=== PATIENT | female | born 1985 | race African-American/Black ===

== ENCOUNTER → 2016-08-26 14:05 | Outpatient (CLI) | payer MEDICARE ==
[2014-11-18 09:45] VITALS: BMI 33.3
[~2016-08-26 14:05] MED LIST: DIFLUCAN100 MG PO; DURAGESIC1 PATCH .4 TRANSDERM; HYDROCODONE-APA1 TAB PO; INVANZ 1 GM/NS 11 G1 IV; OXYCONTIN15 MG PO; PERCOCET 10/3251 TA1 PO; PROTONIX I40 MG/VIAL IV; PROTONIX40 MG PO; ROXICODONE30 MG PO; TENORMIN25 MG PO; VANCOMYCIN 1 GM/1 G1 IV
[2016-08-26 15:00] LABS: ALBUMIN 2.8 g/dL (3.4-5.0); PRE-ALBUMIN 14.4 mg/dL (18.0-35.7)
== END | disposition home or self-care (01) ==
LOC: D.LAB 14:05
PROVIDERS: Surgery
DX: C18.9 Malignant neoplasm of colon, unspecified (principal)

== ENCOUNTER 2016-09-13 14:51 | Inpatient (IN) | payer MEDICARE ==
[2016-09-13] VITALS (7 sets, daily range): BP systolic 125–143; BP diastolic 74–94; BMI 25.5
[~2016-09-13] VITALS: Ht 165.1 cm; Wt 69.4 kg
--- NOTE | 2016-09-13 16:41 | NUR ---
PT RECIEVED TO ROOM 2228 VIA WHEELCHAIR FROM ADMISSIONS VIA DIRECT ADMISSION FROM DR MONAHAN OFFICE NOTED TO HAVE LEFT UPPER CHEST PORT ACCESSED WITH KIM NEEDLE AND INTACT DRESSING PT REFUSED TO ALLOW KIM CHANGE BUT DID ALLOW DRESSING CHANGE PER STERILE TECHNIQUE. SPOKE WITH DR MONAHAN VIA CELL PHONE GIVEN ADMIT VITAL SIGNS AND QUESTIONED IF HE WANTED BLOOD CULTURES VIA PERIPHERAL STICK WELL PER LINE AND WOULD HE PREFER TPN TO BE STARTED TONIGHT STATED THAT IT WAS NOT NECESSARY FOR EITHER PT IS RECIEVING BOLUS FLUID AND BLOOD TRANSFUSIONS AND IT IS UNLIKLEY THAT PERIPHERAL CULTURES WILL AID IN DX. HOWEVER NEW ORDERS OBTAINED FOR LACTIC ACID AND SEPTIC PROTOCOL TO BE FOLLOWED PER FACILITY DRESSING TO MIDLINE LOWER ABDOMEN NOTED. DRY AND INTACT FAMILY AT BEDSIDE.
[2016-09-13 17:48] LABS: BASOPHILS 0.2 % (0-2); EOSINOPHILS 0.5 % (0-7); HEMATOCRIT 24.8 % (36.0-48.0); HEMOGLOBIN 8.1 g/dL (12-16); IMMATURE GRANULOCYTES 0.4 % (0-5); LYMPHOCYTES 10.7 % (15-50); MCH 28.3 pg (26.0-34.0); MCHC 32.7 g/dL (31.0-37.0); MCV 86.7 fL (80.0-100.0); MEAN PLATELET VOLUME 9.1 fL (7.4-10.4); MONOCYTES 9.8 % (2-11); NEUTROPHILS 78.4 % (40-80); PLATELET COUNT 572 10x3/uL (130-400); RBC 2.86 10x6/uL (4.00-5.40); RDW 18.9 % (11.5-14.5); WBC 18.8 10x3/uL (4.8-10.8)
[2016-09-13 18:00] LABS: ALBUMIN 2.2 g/dL (3.4-5.0); ANION GAP 18.7 mmol/L (8-16); BILIRUBIN - TOTAL 0.24 mg/dL (0.2-1.3); CALCIUM 8.4 mg/dL (8.5-10.1); CARBON DIOXIDE 16.4 mmol/L (21.0-32.0); CREATININE - SERUM 3.6 mg/dL (0.6-1.3); POTASSIUM - SERUM 4.1 mmol/L (3.5-5.1); PROTEIN - SERUM 7.4 g/dL (6.4-8.2)
[2016-09-13 22:21] LABS: ERYTHROCYTE SEDIMENTATION RATE 102 mm/hr (0-20)
--- NOTE | 2016-09-13 23:09 | NUR ---
FIRST UNIT OF BLOOD STARTED AT 2310. SLIGHTLY ELEVATED TEMP 99.7
[2016-09-13 23:36] LABS: PRO/CRE RATIO URINE 0.7 mg/g; PROTEIN - URINE 22.8 mg/dL (0.0-11.9)
[2016-09-13 23:37] LABS: APPEARANCE HAZY (CLEAR); BACTERIA FEW /hpf (NONE SEEN); BILIRUBIN NEGATIVE (NEGATIVE); COLOR YELLOW (YELLOW); EPITHELIAL CELLS 0-5 /hpf (0-5); GLUCOSE NEGATIVE (NEGATIVE); KETONE NEGATIVE (NEGATIVE); LEUKOCYTE ESTERASE 2+ (NEGATIVE); NITRITE NEGATIVE (NEGATIVE); PROTEIN 1+ mg/dL (NEGATIVE); RED CELLS - URINE 25-50 /hpf (0-5); SPECIFIC GRAVITY 1.005 (1.005-1.020); UROBILINOGEN NORMAL (NORMAL); WHITE CELLS - URINE 25-50 /hpf (0-5); YEAST >1+ WITH HYPHAE /hpf (NONE SEEN)
[2016-09-14] VITALS (15 sets, daily range): BP systolic 119–144; BP diastolic 67–90; Ht 165.1 cm; Wt 69.4 kg
--- NOTE | 2016-09-14 01:58 | NUR ---
SECOND UNIT OF BLOOD STARTED
[2016-09-14 06:00] LABS: BASOPHILS 0.2 % (0-2); EOSINOPHILS 0.7 % (0-7); IMMATURE GRANULOCYTES 0.3 % (0-5); LYMPHOCYTES 8.8 % (15-50); MCH 29.4 pg (26.0-34.0); MCHC 33.5 g/dL (31.0-37.0); MCV 87.5 fL (80.0-100.0); MEAN PLATELET VOLUME 9.5 fL (7.4-10.4); PLATELET COUNT 544 10x3/uL (130-400); RDW 17.6 % (11.5-14.5); WBC 18.1 10x3/uL (4.8-10.8)
[2016-09-14 06:05] LABS: HEMATOCRIT 31.6 % (36.0-48.0); HEMOGLOBIN 10.6 g/dL (12-16); RBC 3.61 10x6/uL (4.00-5.40)
[2016-09-14 06:13] LABS: ALBUMIN 2.1 g/dL (3.4-5.0); BILIRUBIN - TOTAL 0.68 mg/dL (0.2-1.3); CALCIUM 8.6 mg/dL (8.5-10.1); CARBON DIOXIDE 14.5 mmol/L (21.0-32.0); CREATININE - SERUM 3.8 mg/dL (0.6-1.3); POTASSIUM - SERUM 4.5 mmol/L (3.5-5.1); PROTEIN - SERUM 7.1 g/dL (6.4-8.2)
--- NOTE | 2016-09-14 07:43 | NUR ---
AM ROUNDING- RECEIVED REPORT FROM INJECTION MOLDING MACHINE OFFBEARER NURSE. PT IS CURRENTLY LAYING IN BED ON LEFT SIDE WITH EYES OPEN RESTING. GUEST MEMBER AT BEDSIDE. PT IS C/O 9/10 ABDOMINAL PAIN AT CURRENT TIME. ON ROOM AIR. NO MONITOR. IV SEEN TO LEFT INFUSAPORT WITH NS RUNNING AT 75CC. WILL SEE WHAT PT HAS FOR PAIN AND TX ORDERED. WILL CONTINUE TO MONITOR AND CONTINUE WITH PLAN OF CARE.
[2016-09-14 12:56] LABS: MAGNESIUM - SERUM 2.4 mg/dL (1.8-2.4); PHOSPHOROUS 7.6 mg/dL (2.5-4.9)
--- NOTE | 2016-09-14 16:10 | NUR ---
IV FLUIDS TURNED DOWN ORDERED FOR TPN.
--- NOTE | 2016-09-14 17:07 | NUR ---
PT IS CURRENTLY LAYING IN BED ON RIGHT SIDE WITH EYES OPEN RESTING C/O 9/10 PAIN FROM ABDOMINAL AREA. PT GIVEN BUPRENEX PRN ORDERED FOR PAIN. NO OTHER NEED AT CURRENT TIME. WILL CONTINUE TO MONITOR.
[2016-09-15] VITALS: BP 133/84
--- NOTE | 2016-09-15 00:49 | NUR ---
AWAKE. DENIES ANY NEEDS OR DISCOMFORTS. BED IS LOW WITH SR UP X2. CL IN REACH. FAMILY MEMBER PRESENT IN ROOM.
[2016-09-15 04:00] VITALS: BP 136/85
[2016-09-15 04:31] LABS: BASOPHILS 0.1 % (0-2); HEMATOCRIT 31.4 % (36.0-48.0); HEMOGLOBIN 10.5 g/dL (12-16); IMMATURE GRANULOCYTES 0.4 % (0-5); LYMPHOCYTES 9.4 % (15-50); MCH 28.8 pg (26.0-34.0); MCHC 33.4 g/dL (31.0-37.0); MEAN PLATELET VOLUME 9.2 fL (7.4-10.4); MONOCYTES 12.7 % (2-11); NEUTROPHILS 76.4 % (40-80); PLATELET COUNT 550 10x3/uL (130-400); RBC 3.65 10x6/uL (4.00-5.40); RDW 17.6 % (11.5-14.5); WBC 17.4 10x3/uL (4.8-10.8)
[2016-09-15 04:45] LABS: ANION GAP 16.2 mmol/L (8-16); BILIRUBIN - TOTAL 0.34 mg/dL (0.2-1.3); CALCIUM 8.4 mg/dL (8.5-10.1); CARBON DIOXIDE 18.8 mmol/L (21.0-32.0); CREATININE - SERUM 4.8 mg/dL (0.6-1.3); MAGNESIUM - SERUM 2.4 mg/dL (1.8-2.4); PHOSPHOROUS 5.8 mg/dL (2.5-4.9); PROTEIN - SERUM 7.2 g/dL (6.4-8.2)
--- NOTE | 2016-09-15 07:15 | NUR ---
REPORT RECEIVED FROM FIRE EQUIPMENT OPERATOR NURSE. CALL LIGHT IN REACH.
[2016-09-15 08:24] VITALS: BP 137/91
--- NOTE | 2016-09-15 08:55 | NUR ---
ASSESSMENT COMPLETED. DILAUDID 2 MG SIVP PER C/O PAIN OF 10. OTHER AM MEDS ADMINISTERED. DULCOLAX SUPPOSITORY. MOTHER IN ROOM. CALL LIGHT IN REACH. WILL CONTINUE WITH PLAN OF CARE.
--- NOTE | 2016-09-15 09:10 | NUR ---
ASSESSMENT COMPLETE. L PORT PATENT. TPN INFUSING AT 40 CC/HR AND NS INFUSING AT 30 CC/HR VIA PUMP. DRESSING C/D/I TO ABDOMEN. PALPATABLE HARD AREA NOTED TO MIDEPIGASTRIC AREA. COMPLAINING OF ABDOMINAL PAIN.
--- NOTE | 2016-09-15 11:20 | NUR ---
REQUESTING PAIN MEDS BUT TOO SOON FOR ADMINISTRATION.
--- NOTE | 2016-09-15 12:14 | NUR ---
PREOP MEDS ADMINISTERED. NURSE ANESTHESIST IN ROOM.
--- NOTE | 2016-09-15 12:30 | NUR ---
TO OR VIA BED.
--- NOTE | 2016-09-15 13:01 | NUR ---
1. LEFT URETERAL STENT SIZE 24 2. RIGHT URETERAL STENT SIZE 26
--- NOTE | 2016-09-15 13:38 | NUR ---
URINE SAMPLE COLLECTED AND SENT TO LAB.
[2016-09-15 13:46] LABS: HCG URINE NEGATIVE (NEGATIVE)
[2016-09-15 14:05] VITALS: BP 147/99
--- NOTE | 2016-09-15 14:07 | NUR ---
RETURNED TO ROOM FROM RECOVERY ROOM VIA BED. BP 147/99 HR 106. O2 SAT 100% ON RA.
--- NOTE | 2016-09-15 15:00 | NUR ---
DIFLUCAN IVPB AND SODIUM BICARBONATE PO PER ORDER. VOIDED 400 CC PINK TINGED URINE. CALL LIGHT IN REACH.
--- NOTE | 2016-09-15 15:10 | NUR ---
C/O PAIN OF 8 SO DILAUDID 2 MG SIVP. CALL LIGHT IN REACH.
[2016-09-15 16:00] VITALS: BP 140/74
--- NOTE | 2016-09-15 16:05 | NUR ---
PAIN IS NOW AT AN 8 PER PATIENT. MERREM IVPB. TEMP 99.5. WILL CONTINUE TO MONITOR.
--- NOTE | 2016-09-15 18:41 | NUR ---
DILAUDID 2 MG SIVP PER C/O PAIN OF 10. NO CHANGES IN INITIAL ASSESSMENT. CALL LIGHT IN REACH. MOTHER IN ROOM. WILL CONTINUE WITH PLAN OF CARE.
[2016-09-15 19:00] VITALS: BP 148/98
[2016-09-16] VITALS: BP 134/87
--- NOTE | 2016-09-16 03:56 | NUR ---
EYES CLOSED RESPIRATIONS WITH EASE AND UNLABORED.
[2016-09-16 04:00] VITALS: BP 140/91
[2016-09-16 05:33] LABS: BASOPHILS 0.2 % (0-2); EOSINOPHILS 1.2 % (0-7); HEMATOCRIT 33.1 % (36.0-48.0); HEMOGLOBIN 10.9 g/dL (12-16); IMMATURE GRANULOCYTES 0.6 % (0-5); LYMPHOCYTES 9.8 % (15-50); MCH 28.6 pg (26.0-34.0); MCHC 32.9 g/dL (31.0-37.0); MCV 86.9 fL (80.0-100.0); MEAN PLATELET VOLUME 9.6 fL (7.4-10.4); MONOCYTES 14.8 % (2-11); NEUTROPHILS 73.4 % (40-80); PLATELET COUNT 538 10x3/uL (130-400); RBC 3.81 10x6/uL (4.00-5.40); RDW 17.8 % (11.5-14.5); WBC 16.1 10x3/uL (4.8-10.8)
[2016-09-16 05:52] LABS: ALBUMIN 2.2 g/dL (3.4-5.0); ANION GAP 17.1 mmol/L (8-16); BILIRUBIN - TOTAL 0.32 mg/dL (0.2-1.3); CALCIUM 8.7 mg/dL (8.5-10.1); CARBON DIOXIDE 23.5 mmol/L (21.0-32.0); CREATININE - SERUM 4.5 mg/dL (0.6-1.3); MAGNESIUM - SERUM 2.3 mg/dL (1.8-2.4); PHOSPHOROUS 6.2 mg/dL (2.5-4.9); POTASSIUM - SERUM 3.6 mmol/L (3.5-5.1); PROTEIN - SERUM 7.7 g/dL (6.4-8.2)
--- NOTE | 2016-09-16 07:30 | NUR ---
RECIEVED PT DURING WALKING ROUNDS. PT RESTING IN BED WITH COMPLAINTS OF PAIN OF A 10 ON A SCALE OF 1-10. MEDICATION TO BE ADMINISTERED PER ORDER. ASSESSMENT DONE PER FLOWSHEET. BED IN LOW POSITION AND CALL LIGHT WITHIN REACH. WILL CONTINUE TO MONITOR.
--- NOTE | 2016-09-16 08:50 | NUR ---
NUTRITION MONITORING & EVAL CHART REVIEWED, PT VISIT. TOLERATING SMALL AMT REG DIET. ADJUSTED AND RENEWED TPN ORDERS. RD FOLLOWING
[2016-09-16 10:16] VITALS: BP 151/102
[2016-09-16 12:10] VITALS: BP 145/90
[2016-09-16 15:51] VITALS: BP 146/100
--- NOTE | 2016-09-16 16:40 | NUR ---
SPOKE WITH DR MONAHAN NURSE AT THIS TIME ABOUT PT BLOOD PRESSURE, NO NEW ORDERS RECIEVED AT THIS TIME. WILL CONTINUE TO MONITOR.
[2016-09-16 19:00] VITALS: BP 146/93
[2016-09-17] VITALS (7 sets, daily range): BP systolic 121–151; BP diastolic 76–111
--- NOTE | 2016-09-17 03:45 | NUR ---
LEFT LOWER ABDOMEN, LATERAL TO THE FISTULA, IS SWELLING. IT IS AN OVAL SHAPE THAT IS APPROXIMATELY 1.5 INCHES IN LENGTH AND 4 INCHES IN WIDTH (APPROXIMATELY) AND RAISED ABOUT 1MM IN HEIGHT. IN IS HOT TO THE TOUCH AND VERY TENDER. PATIENT GRIMMACES HER FACE WHEN I GENTLY TOUCH IT WITH MY FINGER TIP.
--- NOTE | 2016-09-17 03:45 | NUR ---
OUTLINED THE AREA OF THE ABDOMEN THAT IS SWELLING, WITH A BROWN MARKER.
[2016-09-17 06:22] LABS: BASOPHILS 0.2 % (0-2); EOSINOPHILS 0.9 % (0-7); HEMATOCRIT 33.4 % (36.0-48.0); HEMOGLOBIN 10.6 g/dL (12-16); IMMATURE GRANULOCYTES 0.3 % (0-5); LYMPHOCYTES 5.2 % (15-50); MCH 28.2 pg (26.0-34.0); MCHC 31.7 g/dL (31.0-37.0); MCV 88.8 fL (80.0-100.0); MEAN PLATELET VOLUME 10.1 fL (7.4-10.4); MONOCYTES 7.9 % (2-11); NEUTROPHILS 85.5 % (40-80); PLATELET COUNT 567 10x3/uL (130-400); RBC 3.76 10x6/uL (4.00-5.40); WBC 18.4 10x3/uL (4.8-10.8)
[2016-09-17 06:24] LABS: ALBUMIN 2.2 g/dL (3.4-5.0); ANION GAP 13.5 mmol/L (8-16); BILIRUBIN - TOTAL 0.3 mg/dL (0.2-1.3); CALCIUM 8.7 mg/dL (8.5-10.1); CARBON DIOXIDE 27.8 mmol/L (21.0-32.0); CREATININE - SERUM 3.4 mg/dL (0.6-1.3); MAGNESIUM - SERUM 2.6 mg/dL (1.8-2.4); POTASSIUM - SERUM 3.3 mmol/L (3.5-5.1); PROTEIN - SERUM 7.6 g/dL (6.4-8.2)
[2016-09-17 06:25] LABS: PHOSPHOROUS 4.5 mg/dL (2.5-4.9)
--- NOTE | 2016-09-17 07:30 | NUR ---
RECIEVED PT DURING WALKING ROUNDS. PT RESTING IN BED WITH COMPLAINTS OF ABDOMINAL PAIN OF AN 8 ON A SCALE OF 1-10. MEDICATION TO BE ADMINISTERED PER ORDER. ASSESSMENT DONE PER FLOWSHEET. BED IN LOW POSITION AND CALL LIGHT WITHIN REACH. WILL CONTINUE TO MONITOR.
--- NOTE | 2016-09-17 08:30 | NUR ---
SPOKE WITH DR. MONAHAN AT THIS TIME ABOUT PT SWOLLEN, RED AREA TO LEFT LOWER QUADRANT, RECIEVED ORDERS FOR A CT. ALSO RECIEVED ORDERS FOR ELECTOLYTE PROTOCOL. WILL REPLACE LOW POTASSIUM PER ORDER.
[2016-09-17 10:18] LABS: UPE RAND - ALBUMIN 36.6 % (()); UPE RAND - ALPHA 1 GLOBULIN 9.1 % (()); UPE RAND - ALPHA 2 GLOBULIN 14.6 % (()); UPE RAND - BETA GLOBULIN 12.4 % (()); UPE RAND - GAMMA GLOBULIN 27.4 % (())
--- NOTE | 2016-09-17 10:40 | NUR ---
SPOKE WITH DR. PHOENIX AT THIS TIME ABOUT PT, CT REVIEWED, DOCTOR STATED HE WOULD SPEAK WITH THE PATIENT AND FAMILY.
--- NOTE | 2016-09-17 10:57 | NUR ---
Patient Name: HERNAN GOLDEN Admission Status: Urgent Accout number: [id number] Admission Date: 09-13-2016 : 1985 Admission Diagnosis:ACUTE KIDNEY FAILURE, UNSPECIFIED Attending: ASHLI Current LOS: 4 Anticipated DC Date: 09-20-2016 Planned Disposition: Home with Home Health Primary Insurance: [facility] Discharge Planning Comments: CM MET WITH PATIENT REGARDING D/C NEEDS AND PLANS. PATIENT STATED HER SISTER (SEYMOUR) LIVES WITH HER AND SOMEONE IN HER FAMILY WILL DRIVE HER HOME AT DISCHARGE. PATIENT STATED SHE HAS A RAMP TO ENTER HER HOME AND NO STAIRS INSIDE. PATIENT IS INDEPENDENT WITH HER CARE AND HAS NO DME AT HOME. PATIENTS PCP IS DR. MONAHAN AND PHARMACY IS [facility] IN [place]. PATIENT IS CURRENT WITH [facility]. CM WILL CONTINUE TO FOLLOW PATIENT WITH D/C NEEDS AND PLANS. PCP DR. HERO AL IN [place]- [phone] SEYMOUR (SISTER) [phone] Emergency Medicine Specialist: Ly Syed Is the patient Alert and Oriented? Yes 0 * How many steps to enter\exit or inside your home? RAMP 0 * PCP DR. MONAHAN 0 * Pharmacy [facility] IN [place] 0 * Preadmission Environment Home with Family 0 * ADLs Independent 0 * Equipment None 0 * List name and contact numbers for known caregivers / representatives who currently or will assist patient after discharge: SEYMOUR (SISTER) [phone] 0 * Community resources currently utilized Home Health 0 * Please name any agencies selected above. [facility] 0 * Additional services required to return to the preadmission environment? Yes 0 * Can the patient safely return to the preadmission environment? Yes 0 * Has this patient been hospitalized within the prior 30 days at any hospital? No 0 Grand Total: 0
[2016-09-17 15:21] LABS: SPE - A/G RATIO 0.6 (0.7-1.7); SPE - ALBUMIN 2.4 g/dL (2.9-4.4); SPE - ALPHA-1 GLOBULIN 0.5 g/dL (0.0-0.4); SPE - ALPHA-2 GLOBULIN 1.1 g/dL (0.4-1.0); SPE - BETA GLOBULIN 1.1 g/dL (0.7-1.3); SPE - GAMMA GLOBULIN 1.4 g/dL (0.4-1.8); SPE - M-SPIKE Not Observed g/dL (Not Observed); SPE - TOTAL PROTEIN 6.6 g/dL (6.0-8.5)
--- NOTE | 2016-09-18 00:49 | NUR ---
ABDOMEN SWELLING INCREASING, LEFT UPPER LEG STARTING TO SWELL. APPLIED AN ICE PACK.
[2016-09-18 04:00] VITALS: BP 118/78
--- NOTE | 2016-09-18 07:30 | NUR ---
RECIEVED PT DURING WALKING ROUNDS. PT RESTING IN BED WITH COMPLAINTS OF PAIN OF A 8 ON A SCALE OF 1-10. PAIN MEDICATION TO BE GIVEN BY FAREBOX REPAIRER NURSE. ASSESSMENT DONE PER FLOWSHEET. BED IN LOW POSITION AND CALL LIGHT WITHIN REACH. WILL CONTINUE TO MONITOR.
[2016-09-18 08:17] LABS: BASOPHILS 0.2 % (0-2); EOSINOPHILS 1.8 % (0-7); HEMATOCRIT 32.1 % (36.0-48.0); HEMOGLOBIN 10.1 g/dL (12-16); IMMATURE GRANULOCYTES 0.2 % (0-5); LYMPHOCYTES 11.6 % (15-50); MCH 28.2 pg (26.0-34.0); MCHC 31.5 g/dL (31.0-37.0); MCV 89.7 fL (80.0-100.0); MEAN PLATELET VOLUME 9.8 fL (7.4-10.4); MONOCYTES 9.5 % (2-11); NEUTROPHILS 76.7 % (40-80); PLATELET COUNT 576 10x3/uL (130-400); RBC 3.58 10x6/uL (4.00-5.40); RDW 17.8 % (11.5-14.5); WBC 17.5 10x3/uL (4.8-10.8)
[2016-09-18 08:21] VITALS: BP 122/81
[2016-09-18 08:35] LABS: ALBUMIN 2.1 g/dL (3.4-5.0); ANION GAP 12.3 mmol/L (8-16); BILIRUBIN - TOTAL 0.38 mg/dL (0.2-1.3); CALCIUM 8.1 mg/dL (8.5-10.1); CARBON DIOXIDE 30.1 mmol/L (21.0-32.0); MAGNESIUM - SERUM 2.2 mg/dL (1.8-2.4); POTASSIUM - SERUM 3.4 mmol/L (3.5-5.1); PROTEIN - SERUM 7.5 g/dL (6.4-8.2); VANCOMYCIN - RANDOM 16.1 ug/mL (10.0-20.0)
[2016-09-18 08:36] LABS: CREATININE - SERUM 2.3 mg/dL (0.6-1.3)
--- NOTE | 2016-09-18 10:20 | NUR ---
POTASSIUM REPLACED PER PROTOCOL AT THIS TIME. WILL CONTINUE TO MONITOR.
--- NOTE | 2016-09-18 10:41 | NUR ---
NUTRITION MONITORING & EVAL CHART REVIEWED. PT CURRENTLY NPO FOR PROCEDURE. TPN @ 40 CC/HR. ADDED MAG AND PHOS TO AM LABS. RD FOLLOWING
[2016-09-18 12:37] VITALS: BP 132/85
[2016-09-18 15:54] VITALS: BP 136/89
--- NOTE | 2016-09-18 17:37 | NUR ---
LETI FOR INITIAL COUNT ONLY. OUT AT 1712
[2016-09-18 18:58] VITALS: BP 136/87
--- NOTE | 2016-09-18 19:00 | NUR ---
RECIEVED PT FROM SURGERY AT THIS TIME, POST-OP STABILITY VITALS STARTED AT THIS TIME. CVL DRESSING CHANGE PASSED TO FABRIC CUTTER NURSE.
--- NOTE | 2016-09-19 03:29 | NUR ---
C/O INCISIONAL PAIN RATES PAIN LEVEL #10 DILAUDID 3MG IVP GIVEN FOR PAIN CONTROL.
[2016-09-19 04:00] VITALS: BP 126/74
[2016-09-19 05:54] LABS: BASOPHILS 0.1 % (0-2); HEMATOCRIT 28.9 % (36.0-48.0); HEMOGLOBIN 8.9 g/dL (12-16); IMMATURE GRANULOCYTES 0.2 % (0-5); LYMPHOCYTES 11.6 % (15-50); MCH 28.3 pg (26.0-34.0); MCHC 30.8 g/dL (31.0-37.0); MONOCYTES 9.5 % (2-11); NEUTROPHILS 75.6 % (40-80); PLATELET COUNT 538 10x3/uL (130-400); RBC 3.14 10x6/uL (4.00-5.40); RDW 18.2 % (11.5-14.5); WBC 14.5 10x3/uL (4.8-10.8)
[2016-09-19 06:08] LABS: ANION GAP 10.7 mmol/L (8-16); BILIRUBIN - TOTAL 0.2 mg/dL (0.2-1.3); CALCIUM 8.1 mg/dL (8.5-10.1); CARBON DIOXIDE 31.2 mmol/L (21.0-32.0); CREATININE - SERUM 1.9 mg/dL (0.6-1.3); MAGNESIUM - SERUM 2.1 mg/dL (1.8-2.4); PHOSPHOROUS 3.4 mg/dL (2.5-4.9); POTASSIUM - SERUM 3.9 mmol/L (3.5-5.1); PROTEIN - SERUM 6.3 g/dL (6.4-8.2); VANCOMYCIN - RANDOM 25.2 ug/mL (10.0-20.0)
--- NOTE | 2016-09-19 07:25 | NUR ---
PT AOX4 RESP EVEN AND NONLABORED PT DENIES NEEDS AT THIS TIME IV TO LEFT CHEST WALL PATENT AND INTACT AT THIS TIME SRX2 BED AT LOWEST SETTING CALL LIGHT WITHIN REACH WILL CONTINUE TO MONITOR
[2016-09-19 08:15] VITALS: BP 138/90
[2016-09-19 11:41] VITALS: BP 118/67
[2016-09-19 16:00] VITALS: BP 114/72
[2016-09-19 16:25] VITALS: BP 114/61
[2016-09-19 22:49] VITALS: BP 133/85
[2016-09-20 07:16] LABS: BASOPHILS 0.2 % (0-2); EOSINOPHILS 3.1 % (0-7); HEMATOCRIT 30.4 % (36.0-48.0); HEMOGLOBIN 9.3 g/dL (12-16); IMMATURE GRANULOCYTES 0.4 % (0-5); LYMPHOCYTES 15.7 % (15-50); MCH 28.4 pg (26.0-34.0); MCHC 30.6 g/dL (31.0-37.0); MCV 92.7 fL (80.0-100.0); MEAN PLATELET VOLUME 10.1 fL (7.4-10.4); MONOCYTES 13.1 % (2-11); NEUTROPHILS 67.5 % (40-80); PLATELET COUNT 625 10x3/uL (130-400); RBC 3.28 10x6/uL (4.00-5.40); RDW 17.8 % (11.5-14.5); WBC 12.3 10x3/uL (4.8-10.8)
[2016-09-20 07:57] LABS: ALBUMIN 2.3 g/dL (3.4-5.0); BILIRUBIN - TOTAL 0.2 mg/dL (0.2-1.3); CALCIUM 8.6 mg/dL (8.5-10.1); CARBON DIOXIDE 33.7 mmol/L (21.0-32.0); CREATININE - SERUM 1.6 mg/dL (0.6-1.3); MAGNESIUM - SERUM 2.4 mg/dL (1.8-2.4); PHOSPHOROUS 2.6 mg/dL (2.5-4.9); PROTEIN - SERUM 7.4 g/dL (6.4-8.2)
[2016-09-20 08:03] LABS: ANION GAP 10.6 mmol/L (8-16); POTASSIUM - SERUM 3.3 mmol/L (3.5-5.1)
[2016-09-20 08:04] LABS: % SATURATION 32 % (15-55); IRON 37 ug/dl (35-150); TOTAL IRON BIND CAPACITY 115 ug/dl (260-445); UNSAT IRON BIND CAPACITY 78 ug/dl (150-375)
--- NOTE | 2016-09-20 08:30 | NUR ---
ASSESSMENT COMPLETE. L PORT PATENT. TPN INFUSING AT 40 CC/HR AND NS INFUSING AT 60 CC/HR VIA PUMP. COLOSTOMY BAG OVER LOWER ABDOMEN INCISION WITH SMALL AMOUNT OF DRAINAGE NOTED. DRESSING INTACT TO LOWER LEFT INCISION.
--- NOTE | 2016-09-20 09:49 | NUR ---
Nutrition Follow Up: Chart reviewed. Current TPN @ 40 ml/hr. +BM 09/17/16. Labs reviewed. Meds noted including NS @ 60 ml/hr. Rec continue current TPN regimen. Labs have been ordered x [address] following.
--- NOTE | 2016-09-20 10:58 | NUR ---
COMPLAINING OF ABDOMINAL PAIN. DILAUDID GIVEN SLOW IVP. VISITING WITH COMPANY.
[2016-09-20 12:41] VITALS: BP 120/82
--- NOTE | 2016-09-20 16:30 | NUR ---
DEREJE NEEDLE CHANGED BY JAMES WILLOUGHBY RN USING STERILE TECHNIQUE. DRESSING TO Q CHANGED. WOUND CLEANED WITH SALINE AND PACKED WITH 1/2 PACKING STRIP AND COVERED WITH 4X4 AND MEDIPORE TAPE.
[2016-09-20 17:35] VITALS: BP 131/96
--- NOTE | 2016-09-20 19:30 | NUR ---
PT RESTING WELL WITH NO DISTRESS NOTED VOICES ALL NEEDS TO STAFF WITH NO DIFFICULTY. CALL LIGHT IN REACH SIDE RAILS UP X 3 MOTHER AT BEDSIDE.
[2016-09-20 20:00] VITALS: BP 129/86
--- NOTE | 2016-09-20 21:00 | NUR ---
PATIENT IS AWAKE, ALERT AND ORIENTED X'S 4. RESPIRATIONS ARE EVEN AND UNLABORED ON ROOM AIR. NO SIGNS OF DISTRESS NOTED. PATIENT DENIES NEEDS. FAMILY AT THE BEDSIDE.
[2016-09-21] VITALS: BP 130/82
--- NOTE | 2016-09-21 03:45 | NUR ---
PT HAS RECIEVED DILAUDID EVERY 2 HRS THIS NIGHT PER REQUEST OF PT. RESTING WELL AT THIS TIME. HAS NO DISTRESS NOTED
[2016-09-21 04:00] VITALS: BP 123/82
[2016-09-21 06:10] LABS: BASOPHILS 0.1 % (0-2); EOSINOPHILS 2.4 % (0-7); HEMATOCRIT 31.4 % (36.0-48.0); HEMOGLOBIN 9.7 g/dL (12-16); IMMATURE GRANULOCYTES 0.4 % (0-5); LYMPHOCYTES 10.4 % (15-50); MCH 28.5 pg (26.0-34.0); MCHC 30.9 g/dL (31.0-37.0); MCV 92.4 fL (80.0-100.0); MEAN PLATELET VOLUME 9.8 fL (7.4-10.4); MONOCYTES 10.8 % (2-11); NEUTROPHILS 75.9 % (40-80); PLATELET COUNT 626 10x3/uL (130-400); RDW 17.7 % (11.5-14.5); WBC 13.4 10x3/uL (4.8-10.8)
[2016-09-21 06:44] LABS: ALBUMIN 2.8 g/dL (3.4-5.0); ANION GAP 5.5 mmol/L (8-16); BILIRUBIN - TOTAL 0.2 mg/dL (0.2-1.3); CALCIUM 9.1 mg/dL (8.5-10.1); CARBON DIOXIDE 39.6 mmol/L (21.0-32.0); CREATININE - SERUM 1.5 mg/dL (0.6-1.3); MAGNESIUM - SERUM 2.9 mg/dL (1.8-2.4); PHOSPHOROUS 2.8 mg/dL (2.5-4.9); POTASSIUM - SERUM 3.1 mmol/L (3.5-5.1)
--- NOTE | 2016-09-21 07:50 | NUR ---
PT AOX4 RESP EVEN AND NONLABORED PT DENIES NEEDS AT THIS TIME IV TO LEFT SUBCLAVIAN PATENT AND INTACT AT THIS TIME SRX2 BED AT LOWEST SETTING CALL LIGHT WITHIN REACH WILL CONTINUE TO MONITOR
[2016-09-21 08:42] VITALS: BP 132/90
[2016-09-21 12:19] VITALS: BP 132/87
[2016-09-21 16:28] VITALS: BP 121/77
--- NOTE | 2016-09-21 19:10 | NUR ---
ASSESSMENT COMPLETE PER FLOWSHEET. VOICES NO CO AT TIME. SR UP X 2. MOTHER AT THE BEDSIDE.
[2016-09-21 20:00] VITALS: BP 144/84
--- NOTE | 2016-09-21 21:00 | NUR ---
DRESSING CHANGE AND PACKED WITH IDOFOAM GUAZE. VOICES CO AT OF PAIN. 10/10.
[2016-09-22] VITALS: BP 117/76
--- NOTE | 2016-09-22 | NUR ---
SLEEPING NO DISTRESS NOTED. SR UP X 2. CALL LIGHT WITHIN REACH.
--- NOTE | 2016-09-22 03:00 | NUR ---
UP VOMITING IN BATHROOM. 1000 CC EMESIS.
[2016-09-22 04:00] VITALS: BP 119/81
[2016-09-22 04:40] LABS: BASOPHILS 0.2 % (0-2); EOSINOPHILS 1.5 % (0-7); HEMATOCRIT 32.2 % (36.0-48.0); HEMOGLOBIN 9.9 g/dL (12-16); IMMATURE GRANULOCYTES 0.5 % (0-5); LYMPHOCYTES 11.8 % (15-50); MCH 28.5 pg (26.0-34.0); MCHC 30.7 g/dL (31.0-37.0); MCV 92.8 fL (80.0-100.0); MEAN PLATELET VOLUME 10.1 fL (7.4-10.4); PLATELET COUNT 630 10x3/uL (130-400); RBC 3.47 10x6/uL (4.00-5.40); RDW 17.6 % (11.5-14.5); WBC 16.5 10x3/uL (4.8-10.8)
[2016-09-22 04:55] LABS: ALBUMIN 3.1 g/dL (3.4-5.0); ANION GAP 7.8 mmol/L (8-16); BILIRUBIN - TOTAL 0.27 mg/dL (0.2-1.3); CALCIUM 8.8 mg/dL (8.5-10.1); CARBON DIOXIDE 38.4 mmol/L (21.0-32.0); CREATININE - SERUM 1.6 mg/dL (0.6-1.3); MAGNESIUM - SERUM 3.4 mg/dL (1.8-2.4); PHOSPHOROUS 2.1 mg/dL (2.5-4.9); POTASSIUM - SERUM 3.2 mmol/L (3.5-5.1); PROTEIN - SERUM 8.3 g/dL (6.4-8.2)
--- NOTE | 2016-09-22 05:00 | NUR ---
SLEEPING NO DISTRESS NOTED. SR UP X 2.
--- NOTE | 2016-09-22 07:57 | NUR ---
LYING IN BED,WITHOUT DISTRESS.FAMILY AT BEDSIDE.CALL LIGHT IN REACH
--- NOTE | 2016-09-22 08:48 | NUR ---
ASSESSMENT COMPLETED. AM MEDS ADMINISTERED. DILAUDID AND ZOFRAN IVP. ONLY REQUESTED 3 MG. PASSWORD AND EMERGENCY CONTACT INFO OBTAINED AND PLACED IN CHART. ALSO REVIEWED MED REC AND PHARMACY. MOTHER IN ROOM. CALL LIGHT IN REACH. WILL CONTINUE WITH PLAN OF CARE.
[2016-09-22] MEDS ORDERED: HYDROCODONE-APA1 TAB PO (09:05)
[2016-09-22] MEDS ORDERED: COLACE100 MG PO (09:06)
[2016-09-22 09:12] VITALS: BP 99/62
[2016-09-22] MEDS ORDERED: MULTI-DAY VITAM1 TAB PO (09:22)
[2016-09-22] MEDS ORDERED: DULCOLAX10 MG/SUPP (09:22)
--- NOTE | 2016-09-22 09:25 | NUR ---
DR. PHOENIX PACKED WOUNDS.
--- NOTE | 2016-09-22 11:50 | NUR ---
JOSE LUIS KING AND DIFLUCAN IVPB PER AARON REILLY.
[2016-09-22 12:31] VITALS: BP 103/68
--- NOTE | 2016-09-22 12:42 | NUR ---
DILAUDID 4 MG SIVP. MOTHER IN ROOM. CALL LIGHT IN REACH. IV TUBING CHANGED PER HOSPITAL POLICY.
--- NOTE | 2016-09-22 14:20 | NUR ---
RESTING WITH EYES CLOSED. RESP EVEN AND UNLABORED. CALL LIGHT IN REACH.
--- NOTE | 2016-09-22 15:17 | NUR ---
AARON PARR, ADMINISTERED DILAUID 3 MG SIVP PER PATIENT REQUEST D/T PAIN OF 8. CALL LIGHT IN REACH.
--- NOTE | 2016-09-22 16:20 | NUR ---
BLOOD DRAWN FROM IP FOR POTASSIUM LEVEL. IVPB MERREM AND IV ALBUMIN. IV TUBING CHANGED PER HOSPITAL POLICY. NO OTHER NEEDS VOICED. CALL LIGHT IN REACH.
[2016-09-22 16:33] VITALS: BP 112/68
--- NOTE | 2016-09-22 17:31 | NUR ---
KAVIN AND ROBYN MCCOYP. CALL LIGHT IN REACH.
--- NOTE | 2016-09-22 18:28 | NUR ---
NO CHANGES IN INITIAL ASSESSMENT. CALL LIGHT IN REACH. WILL CONTINUE WITH PLAN OF CARE.
--- NOTE | 2016-09-22 19:20 | NUR ---
MOTHER AT BED SIDE TALK TO PT.
[2016-09-22 20:00] VITALS: BP 127/87
[2016-09-23] VITALS: BP 109/60
--- NOTE | 2016-09-23 01:02 | NUR ---
DRESSING CHANGE IN LEFT AND MID ABDOMEN AREA.
--- NOTE | 2016-09-23 02:00 | NUR ---
PT IN BED WITH NO DISTRESS. RESPIRATIONS EVEN AND UNLABORED. SIDE RAILS X 2. BED IS LOW. CALL LIGHT IN REACH.
[2016-09-23 04:00] VITALS: BP 117/76
[2016-09-23 05:18] LABS: BASOPHILS 0.2 % (0-2); EOSINOPHILS 1.7 % (0-7); HEMATOCRIT 31.1 % (36.0-48.0); HEMOGLOBIN 9.4 g/dL (12-16); IMMATURE GRANULOCYTES 0.6 % (0-5); LYMPHOCYTES 12.1 % (15-50); MCH 28.2 pg (26.0-34.0); MCHC 30.2 g/dL (31.0-37.0); MCV 93.4 fL (80.0-100.0); MONOCYTES 11.6 % (2-11); NEUTROPHILS 73.8 % (40-80); PLATELET COUNT 619 10x3/uL (130-400); RBC 3.33 10x6/uL (4.00-5.40); RDW 17.7 % (11.5-14.5); WBC 13.9 10x3/uL (4.8-10.8)
--- NOTE | 2016-09-23 05:30 | NUR ---
FSBS IS 113
[2016-09-23 05:31] LABS: BILIRUBIN - TOTAL 0.23 mg/dL (0.2-1.3); CALCIUM 8.2 mg/dL (8.5-10.1); CARBON DIOXIDE 33.7 mmol/L (21.0-32.0); CREATININE - SERUM 1.6 mg/dL (0.6-1.3); MAGNESIUM - SERUM 3.2 mg/dL (1.8-2.4); PHOSPHOROUS 1.6 mg/dL (2.5-4.9); PROTEIN - SERUM 7.9 g/dL (6.4-8.2)
[2016-09-23 05:34] LABS: ANION GAP 7.2 mmol/L (8-16); POTASSIUM - SERUM 3.9 mmol/L (3.5-5.1)
[2016-09-23 07:13] LABS: BASOPHILS 0.1 % (0-2); EOSINOPHILS 1.7 % (0-7); HEMATOCRIT 30.5 % (36.0-48.0); HEMOGLOBIN 9.3 g/dL (12-16); IMMATURE GRANULOCYTES 0.6 % (0-5); LYMPHOCYTES 13.6 % (15-50); MCH 28.4 pg (26.0-34.0); MCHC 30.5 g/dL (31.0-37.0); MONOCYTES 6.3 % (2-11); NEUTROPHILS 77.7 % (40-80); PLATELET COUNT 595 10x3/uL (130-400); RBC 3.28 10x6/uL (4.00-5.40); RDW 17.4 % (11.5-14.5); WBC 14.5 10x3/uL (4.8-10.8)
--- NOTE | 2016-09-23 07:13 | NUR ---
PRN DILAUDID 3MG ADMINISTERED FOR PAIN 10/10 PER ORDER AT THIS TIME. PT GIVEN SUPPLIES TO PACK ABDOMINAL FISTULA. MOTHER REMAINS AT BEDSIDE AND CALL LIGHT IN REACH, WILL CONTINUE WITH PLAN OF CARE.
--- NOTE | 2016-09-23 07:13 | NUR ---
PRN DILAUDID 4MG ADMINISTERED FOR PAIN AT THIS TIME. PAIN 10/10. PROVIDED PT WITH SUPPLIES TO PACK ABDOMINAL FISTULA. ASSESSMENT PERFORMED PER FLOWSHEET. MOTHER AT BEDSIDE. CALL LIGHT IN REACH. WILL CONTINUE WITH PLAN OF CARE.
[2016-09-23 07:44] LABS: ALBUMIN 3.3 g/dL (3.4-5.0); ANION GAP 8.3 mmol/L (8-16); BILIRUBIN - TOTAL 0.26 mg/dL (0.2-1.3); CALCIUM 8.7 mg/dL (8.5-10.1); CARBON DIOXIDE 34.9 mmol/L (21.0-32.0); CREATININE - SERUM 1.5 mg/dL (0.6-1.3); PHOSPHOROUS 1.8 mg/dL (2.5-4.9); POTASSIUM - SERUM 4.2 mmol/L (3.5-5.1); PROTEIN - SERUM 8.1 g/dL (6.4-8.2)
[2016-09-23 07:52] LABS: MAGNESIUM - SERUM 3.5 mg/dL (1.8-2.4)
[2016-09-23 08:32] VITALS: BP 113/76
--- NOTE | 2016-09-23 09:17 | NUR ---
NUTRITION MONITORING & EVAL CHART REVIEWED, TPN ADJUSTED, LABS RENEWED X 3 DAYS. PT TOLERATING REG DIET. RD FOLLOWING
--- NOTE | 2016-09-23 09:42 | NUR ---
SCHEDULED MEDICATIONS ADMINISTERED WELL PRN DILAUDID AND FLEXERIL. DENIES FURTHER NEEDS. MOTHER PROVIDED BED BATH. WILL CONTINUE WITH PLAN OF CARE.
--- NOTE | 2016-09-23 11:25 | NUR ---
Patient Name: HERNAN GOLDEN Encounter No: [id number] : 1985 Primary Insurance: [id number] Anticipated DC Date: 09-20-2016 Planned Disposition: Home with Home Health External Planned Provider: : DCP follow-up note: Patient and family in agreement with discharge plan. No changes to plan. Case management will follow and assist as needed. Ly Syed
--- NOTE | 2016-09-23 11:46 | NUR ---
PRN DILAUDID 3MG ADMINISTERED FOR PAIN 10/10. MOTHER REMAINS AT BEDSIDE. CALL LIGHT IN REACH, WILL CONTINUE WITH PLAN OF CARE.
[2016-09-23 12:44] VITALS: BP 109/75
--- NOTE | 2016-09-23 14:20 | NUR ---
PRN DILAUDID ADMINISTERED AT THIS TIME FOR PAIN PER ORDER. FISTULA DRESSING CHANGED PER PT. LEFT LOWER QUADRANT ABDOMEN DRESSING CHANGED AND PACKED USING STERILE TECNIQUE. DENIES FURTHER NEEDS. WILL CONTINUE WITH PLAN OF CARE.
[2016-09-23 16:15] VITALS: BP 104/62
[2016-09-23 19:00] VITALS: BP 117/72
[2016-09-24 04:00] VITALS: BP 99/62
[2016-09-24 07:41] LABS: ALBUMIN 3.5 g/dL (3.4-5.0); BILIRUBIN - TOTAL 0.28 mg/dL (0.2-1.3); CALCIUM 8.9 mg/dL (8.5-10.1); CARBON DIOXIDE 33.2 mmol/L (21.0-32.0); CREATININE - SERUM 1.6 mg/dL (0.6-1.3); POTASSIUM - SERUM 4.2 mmol/L (3.5-5.1); PROTEIN - SERUM 8.6 g/dL (6.4-8.2)
[2016-09-24 07:43] LABS: PHOSPHOROUS 3.8 mg/dL (2.5-4.9)
[2016-09-24 07:45] LABS: MAGNESIUM - SERUM 3.8 mg/dL (1.8-2.4)
[2016-09-24 08:43] VITALS: BP 99/65
--- NOTE | 2016-09-24 10:00 | NUR ---
BOTH DRESSINGS CHANGED AND PACKED ON ABDOMEN
--- NOTE | 2016-09-24 13:06 | NUR ---
NUTRITION MONITORING & EVAL CHART REVIEWED. PT VISIT. PT REPORTS SHE IS "SICK AT MY STOMACH". STATES SHE HAS NOT EATEN MUCH TODAY. ELEVATED MAG NOTED. NO MAG IN TPN, ? MOM. RD FOLLOWING
[2016-09-24 13:56] VITALS: BP 106/72
--- NOTE | 2016-09-24 14:49 | NUR ---
NUTRITION MONITORING & EVAL CHART REVIEWED. SPOKE WITH DR. PHOENIX. TPN ADJUSTED AND INCREASED TO 60 CC/HR. ADDED 20% INTRALIPIDS//250 CC [address] FOLLOWING
[2016-09-24 19:00] VITALS: BP 127/81
--- NOTE | 2016-09-24 20:00 | NUR ---
PATIENT AMBULATING IN THE [place]ILL WITH HER MOM. NO SIGNS OF DISTRESS NOTED. PATIENT PLEASENT, DENIES NEEDS. RESPIRATIONS ARE EVEN AND UNLABORED ON ROOM AIR.
--- NOTE | 2016-09-24 20:15 | NUR ---
PATIENT DOING DRESSING CHANGE.
--- NOTE | 2016-09-24 20:32 | NUR ---
PATIENT AMBULATED 3 FULL LAPS
[2016-09-25] VITALS: BP 117/76
[2016-09-25 04:00] VITALS: BP 109/71
[2016-09-25 05:43] LABS: HEMATOCRIT 30.5 % (36.0-48.0); HEMOGLOBIN 9.5 g/dL (12-16); MCH 28.3 pg (26.0-34.0); MCHC 31.1 g/dL (31.0-37.0); PLATELET COUNT 611 10x3/uL (130-400); RBC 3.36 10x6/uL (4.00-5.40); RDW 17.3 % (11.5-14.5); WBC 14.7 10x3/uL (4.8-10.8)
[2016-09-25 05:44] LABS: MCV 90.8 fL (80.0-100.0)
[2016-09-25 05:58] LABS: ALBUMIN 3.6 g/dL (3.4-5.0); ANION GAP 10.8 mmol/L (8-16); BILIRUBIN - TOTAL 0.28 mg/dL (0.2-1.3); CALCIUM 8.9 mg/dL (8.5-10.1); CARBON DIOXIDE 35.6 mmol/L (21.0-32.0); CREATININE - SERUM 1.6 mg/dL (0.6-1.3); PHOSPHOROUS 4.1 mg/dL (2.5-4.9); POTASSIUM - SERUM 4.4 mmol/L (3.5-5.1); PROTEIN - SERUM 8.6 g/dL (6.4-8.2)
[2016-09-25 06:25] LABS: EOSINOPHILS 2 % (0-7); LYMPHOCYTES 6 % (15-50); MONOCYTES 3 % (2-11); NEUTROPHILS 89 % (40-80); PLATELET ESTIMATE INCREASED
--- NOTE | 2016-09-25 07:30 | NUR ---
RECIEVED PT DURING WALKING ROUNDS. PT RESTING IN BED WITH COMPLAINTS OF PAIN OF A 7 ON A SCALE OF 1-10. MEDICATION TO BE GIVEN PER ORDER. ASSESSMENT DONE PER FLOWSHEET. BED IN LOW POSITION AND CALL LIGHT WITHIN REACH. WILL CONTINUE TO MONITOR.
[2016-09-25 08:42] VITALS: BP 105/68
--- NOTE | 2016-09-25 10:01 | NUR ---
NUTRITION MONITORING & EVAL CHART REVIEWED. ADJUSTED AND RENEWED TPN. WILL CONTINUE TO MONITOR PT PROGRESS, LABS. RD FOLLOWING
--- NOTE | 2016-09-25 11:25 | NUR ---
CENTRAL LINE DRESSING CHANGED PER PROTOCOL USING STERILE TECHNIQUE AT THIS TIME. BED IN LOW POSITION AND CALL LIGHT WIIN REACH. WILL CONTINUE TO MONITOR.
[2016-09-25 11:59] VITALS: BP 123/78
[2016-09-25 15:10] VITALS: BP 100/73
--- NOTE | 2016-09-25 19:15 | NUR ---
BEDSIDE REPORT RECEIVED AND CARE OF PT ASSUMED. PT LYING IN SEMI GILLETTE'S POSITION VISITING WITH FAMILY MEMBERS. LEFT PORT ACCESSED WITH TPN INFUSING AT 60 ML / HR AND 1/2 NS W/20 KCL INFUSING AT 50 ML / HR. WILL MONITOR CLOSELY FOR NEEDS.
[2016-09-25 20:00] VITALS: BP 109/70
--- NOTE | 2016-09-25 20:00 | NUR ---
DRESSING CHANGED BY PATIENT. SUPPLIES GIVEN. MINIMAL DRAINAGE ON OLD DRESSING PER PATIENT.
--- NOTE | 2016-09-25 20:30 | NUR ---
HS MEDICATIONS GIVEN TO INCLUDE FLEXERIL PER PT REQUEST. WILL CONTINUE TO MONITOR FOR NEEDS. FAMILY MEMBERS ARE AT BEDSIDE.
--- NOTE | 2016-09-25 21:33 | NUR ---
GAVE DILAUDID PER PT REQUEST. WILL MONITOR FOR EFFECTIVENESS. FAMILY MEMBER AT BEDSIDE.
--- NOTE | 2016-09-25 23:30 | NUR ---
DILAUDID GIVEN PER PT REQUEST FOR PAIN. WILL CONTINUE TO MONITOR FOR NEEDS.
[2016-09-26] VITALS: BP 117/67
[2016-09-26 04:00] VITALS: BP 120/61
[2016-09-26 07:17] LABS: ALBUMIN 3.9 g/dL (3.4-5.0); BILIRUBIN - TOTAL 0.32 mg/dL (0.2-1.3); CALCIUM 8.7 mg/dL (8.5-10.1); CARBON DIOXIDE 31.6 mmol/L (21.0-32.0); CREATININE - SERUM 1.6 mg/dL (0.6-1.3); PHOSPHOROUS 4.1 mg/dL (2.5-4.9); POTASSIUM - SERUM 4.6 mmol/L (3.5-5.1); PROTEIN - SERUM 8.1 g/dL (6.4-8.2)
[2016-09-26 07:22] LABS: MAGNESIUM - SERUM 3.5 mg/dL (1.8-2.4)
--- NOTE | 2016-09-26 07:45 | NUR ---
PT ASSESSMENT COMPLETE AWAKE AND ALERT ORINETD X 3 LUNGS CLEAR BILATERALLY NO ACUTE DISTRESS NOTED VOICES ALL NEEDS TO STAFF CALL LIGHT IN REACH MOTHER AT BEDSIDE DRESSING IN TACT TO ABDOMEN.
[2016-09-26 08:09] VITALS: BP 107/64
[2016-09-26] MEDS ORDERED: ENULOSE10 G/15 ML PO (09:06)
[2016-09-26] MEDS ORDERED: DURAGESIC1 PATCH .3 TRANSDERM (09:06)
[2016-09-26] MEDS ORDERED: OXYCODONE HCL5 MG PO (09:08)
[2016-09-26] MEDS ORDERED: [UNRECOGNIZED DRUG - CODE] IV (09:11)
--- NOTE | 2016-09-26 10:02 | NUR ---
CM REASSESSMENT NOTE: PATIENT IS DISCHARGING HOME TODAY /RESUMPTION OF CARE WITH [facility] ([place]). MATT WITH [facility] STATED THEY WILL CONTACT PATIENT FOR APPOINTMENT TIME. PATIENTS FAMILY IS DRIVING HER HOME. [employer] HAS BEEN SENT THE ORDER FOR TPN ([facility]). [employer]- [phone] [facility] IN [place]- [phone] FAX [phone]
[2016-09-26] MEDS ORDERED: CYCLOBENZAPRINE10 MG PO (12:04)
[2016-09-26] MEDS ORDERED: LOPRESSOR25 MG PO (12:04)
[2016-09-26] MEDS ORDERED: NORVASC10 MG PO (12:04)
--- NOTE | 2016-09-26 12:21 | NUR ---
PT GIVEN DISCHARGE INSTRUCTIONS AND EXPRESSED UNDERSTANDING GIVEN WRITTEN RX FOR OXYCODONE 10 MG #[address] NEVES WELL WRITTEN RX FOR LACTULOSE AND FENTNYL PATCH 100 MCG #5 FLUSHED PORT WITH 20 ML SALINE AND LOCKED ALL CLAMPS WITH SWAB CAPS IN PLACE. PT TO RECIEVE TPN AT HOME PER [facility].
--- NOTE | 2016-10-17 07:03 | DS ---
PATIENT:HERNAN SHIPLEY :85 MEDICAL RECORD: [id number] DISCHARGE SUMMARY ADMISSION DATE: 09/13/16 DISCHARGE DATE: 09/26/16 DATE OF ADMISSION: 09/17/2016 DISCHARGE DIAGNOSES: 1. 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 2. Acute renal failure, improved after exchanged of ureteral stents. 3. Enterocutaneous fistula. 4. Complicated urinary tract infection with yeast. 5. Partial small bowel obstruction. SUMMARY OF HOSPITAL COURSE: Ms. Shipley has a history of peritoneal carcinomatosis. She was admitted with leukocytosis, anemia and evidence of acute renal failure. CT scan showed obstructive hydronephrosis. She was seen by urology and her ureteral stents were exchanged. Culture did show yeast and she was treated with fluconazole for this. After exchanged of her ureteral stents and appropriated hydration, her renal function improved, back to baseline. She did have a chronic partial small bowel obstruction during her hospital stay and was treated with TPN. Her enterocutaneous fistula output continued to decline. She was followed by general surgery during her hospital stay, who recommended the continuation of TPN and consideration for further surgical exploration if her prealbumin returned to greater than 20. She did have small abscess developed in the left lower quadrant of her abdomen which was drained by surgery. She was treated with antibiotics including Invanz and vancomycin for this. By September 26, she was felt to be stable to return home to continue with TPN and follow up in the outpatient setting. TRANSINT:[id number] Voice Confirmation ID: [id number] DOCUMENT ID: [id number] MIGUEL MONAHAN MD at 0703 CC: [id number] DICTATION DATE: 10/11/16 0736 SHANK CARRIER: 10/12/16 0154 DIS IN 09/26/16 [place] [id number]
== END 2016-09-26 12:30 | disposition home health service (06) | DRG 853 ==
LOC: D.MS 14:51
PROVIDERS: Anesthesiology; Emergency Medicine; Internal Medicine Hematology & Oncology; Internal Medicine Nephrology; Surgery; Urology; ADMIT Internal Medicine Medical Oncology
PROC: 0T788DZ Dilation of Bilateral Ureters with Intraluminal Device, Via Natural or Artificial Opening Endoscopic (ICD-10-PCS; 2016-09-15)
PROC: 0J980ZZ Drainage of Abdomen Subcutaneous Tissue and Fascia, Open Approach (ICD-10-PCS; 2016-09-15)
PROC: 0TP98DZ Removal of Intraluminal Device from Ureter, Via Natural or Artificial Opening Endoscopic (ICD-10-PCS; principal; 2016-09-15 14:00)
DX: A41.9 Sepsis, unspecified organism (principal); K65.1 Peritoneal abscess; N13.1 Hydronephrosis with ureteral stricture, not elsewhere classified; C78.6 Secondary malignant neoplasm of retroperitoneum and peritoneum; K63.2 Fistula of intestine; C18.1 Malignant neoplasm of appendix; B37.49 Other urogenital candidiasis; E87.2 Acidosis; E87.1 Hypo-osmolality and hyponatremia; N17.9 Acute kidney failure, unspecified; D63.8 Anemia in other chronic diseases classified elsewhere; E86.0 Dehydration; E83.41 Hypermagnesemia; N18.3 Chronic kidney disease, stage 3 (moderate); M79.1 Myalgia; K64.9 Unspecified hemorrhoids

== ENCOUNTER 2016-10-09 11:16 | Inpatient (IN) | payer MEDICARE ==
[~2016-10-09] VITALS: Ht 165.1 cm; Wt 63.1 kg
--- NOTE | ~2016-10-09 | HEMODYNAMI ---
PATIENT:HERNAN GOLDEN MEDICAL RECORD: [id number] : 85 LOCATION:[facility] ADMISSION DATE: 10/10/16 Generatedon:11/06/201615:28 Patient name: HERNAN GOLDEN Patient #: [id number] SSN: DO B: 1985 Date of study: 11/06/2016 Page: Of Hemodynamic Procedure Report Patient Data Patient Demographics Procedure consent was obtained First Name: HERNAN Gender: Female Last Name: CHANTEL : 1985 Middle Initial: GUSTAVO Age: 31 year(s) Patient #: [id number] Race: Black Additional ID: [id number] Contact details [address]: [address] [place] [address] State: [place] City: [place] Zip code: [address] Admission Admission Data Admission Date: 10/10/2016 Admission Time: 10:26 Room #: D.2238 Procedure Procedure Types Cath Procedure Peripheral Cath Diagnostic Procedure Miscellaneous Procedure Description Procedure Date Procedure Date: 11/06/2016 Procedure Start Time: 15:06 Procedure Staff Name Function Sang Meneses MD Performing Physician Roxane Sebastian RT Scrub Toribio Espinoza MD Additional personnel Maikel Macias RT Monitor Procedure Data Cath Procedure Fluoroscopy Diagnostic fluoroscopy Total fluoroscopy Time: 1.8 time: 1.8 min min Diagnostic fluoroscopy Total fluoroscopy dose: 30 dose: 30 mGy mGy Contrast Material Contrast Material Type Amount (ml) Isovue 300 25 Diagnostic catheters Device Type Used For End Catheter Placement Merit Impress KA 2 5Fr 40CM catheter Hemodynamics Rest Heart Rate: 107 (bpm) Snapshots Pre Cath Intra NCS Post Cath Vital Signs Time Heart Resp SPO2 NIBP (mmHg) Rhythm Pain Sedation Rate (ipm) (%) Status Level (bpm) 14:49:19 104 16 100 124/85(100) NSR 0 (11) 10(A) , No pain 14:53:27 109 16 100 118/85(97) NSR 0 (11) 10(A) , No pain 14:57:33 104 14 100 121/83(99) NSR 0 (11) 10(A) , No pain 15:01:36 107 15 100 116/87(97) NSR 0 (11) 10(A) , No pain 15:05:38 122 16 100 121/88(102) NSR 0 (11) 10(A) , No pain 15:09:42 112 17 100 126/91(103) NSR 0 (11) 10(A) , No pain 15:13:48 108 18 100 118/84(97) NSR 0 (11) 10(A) , No pain 15:17:49 116 17 100 118/91(102) NSR 0 (11) 10(A) , No pain 15:21:53 111 14 100 119/83(96) NSR 0 (11) 10(A) , No pain 15:25:57 111 15 100 118/87(100) NSR 0 (11) 10(A) , No pain Procedure Log Time Note 14:34:51 Maikel Macias RT (R) (CV) sent for patient. Start room use. 14:34:59 Time tracking: Regular hours 14:35:04 Plan of Care:Hemodynamics will remain stable., Cardiac rhythm will remain stable., Comfort level will be maintained., Respiratory function will remain adequate., Patient/ family verbilizes understanding of procedure., Procedure tolerated without complication., Recovers from procedure without complications.. 14:35:10 Patient received from Med/Surg to IR Alert and oriented. Tansferred to table in Supine position. 14:35:11 Correct patient and procedure confirmed by team. 14:35:13 Signed procedure consent form obtained from patient. 14:35:13 ECG and BP/O2 sat monitors applied to patient. 14:35:15 Full Disclosure recording started 14:35:16 - 14:35:19 H&P Date Dictated: 11/06/2016 Within 30 days and on chart.. 14:35:20 Pre-procedure instructions explained to patient. 14:35:20 Pre-op teaching completed and patient verbalized understanding. 14:35:24 Family unavailable. 14:35:26 Patient NPO since Midnight. 14:35:29 - 14:35:47 SEE ANESTHESIA NOTE FOR PRE PROCEDURE TIVA 14:35:49 - 14:35:55 Use device set IR Diagnostic 14:35:57 Sterile Angiographic Pack opened to sterile field. 14:35:58 Bag Decanter opened to sterile field. 14:48:24 Vital chart was started 14:48:25 Baseline sample Acquired. 14:48:29 Rhythm: sinus tachycardia 15:00:23 MIKEL BURKS HERE FOR ANESTHESIA 15:05:47 Physician responded to page. 15:05:48 --------ALL STOP TIME OUT------ 15:05:49 Physician arrived 15:05:51 Final Timeout: patient, procedure, and site verified with staff and physician. All members of the team are in agreement. 15:05:56 Left abdomen site verified by team. 15:06:03 Left abdomen area was prepped with chlora-prep and draped in sterile fashion 15:06:08 Physical assessment completed. ASA score P 2 - A patient with mild systemic disease as per Sang Meneses MD. 15:06:12 Sedation plan: IV Moderate Sedation Versed, Fentanyl 15:06:24 Procedure started. 15:06:31 Local anesthetic to Abdominal area with Lidocaine 1% by Sang Meneses MD.INITIAL ACCESS ONLY 15:10:34 A Quaam KA 2 5Fr 40CM catheter was advanced over the wire and used for . 15:10:36 Terumo ANGLE 180L glide wire opened to sterile field. 15:10:51 Terumo TORQUE DEVICE PLASTIC .038 opened to sterile field. 15:11:34 Cook DOC .035 guide wire opened to sterile field. 15:12:17 Cook BENTSON 145cm guide wire opened to sterile field. 15:18:17 BAG, DRAINAGE EMPTY 600ML W/DELORES opened to sterile field. 15:18:17 STOPCOCK 3-WAY LARGE BORE opened to sterile field. 15:18:28 Abscession 10 FR drainage catheter opened to sterile field. 15:19:25 SUTURE ETHILON 2-0 BLK MONO FS opened to sterile field. 15:25:36 Procedure ended.(Physican Out) 15:25:57 Fluoroscopy time 01.80 minutes. 15:26:04 Fluoroscopy dose: 30 mGy 15:26:04 Flurop Dose total: 30 15:26:28 Contrast amount:Isovue 300 25ml. 15:26:29 Sharps counted by scrub and verified by R.N. 15:26:30 Insertion/operative site no bleeding no hematoma. 15:26:35 Post-op/insertion site Left Abdominal area dressed using a 4 x 4 and Tegaderm. 15:26:41 Post Abdominal area:stable 15:26:48 Post-procedure physical assessment completed. ASA score P 2 - A patient with mild systemic disease as per Sang Meneses MD. 15:27:01 Post procedure rhythm: unchanged. 15:27:02 Post procedure instruction explained to patient.Patient verbalizes understanding. 15:27:04 Procedure and supply charges have been captured, reviewed, submitted an d are correct. 15:27:25 Report given to Med/Surg. 15:27:28 Patient transfered to Med/Surg with Bed. 15:28:42 Vital chart was stopped Device Usage Item Name Manufacture Quantity Catalog Hospital Part Current Minima l Lot# / Number Charge Number Stock Stock Serial# Code Sterile Cardinal 1 [id number] 5 Angiographic Health Pack Bag Decanter Microtek 1 869003 72021 775360 5 [employer]yst Medical 1 [id number] 909216 991929 5 [id number] Impress KA 2 5Fr 40CM catheter Terumo ANGLE Terumo 1 [id number] 548356 935674 762096 5 180L glide wire Terumo [place] 1 TD01 587757 873302 891380 5 TORQUE Scientific DEVICE PLASTIC .038 Cook DOC [facility] 1 [id number] 164107 376101 5 [id number] .035 guide wire Cook BENTSON [facility] 1 [id number] 389088 430584 5 [id number] 145cm guide wire BAG, [facility] 1 [id number] 226015 100958 431413 5 DRAINAGE EMPTY 600ML W/DELORES STOPCOCK [facility] 1 [id number] 623156 9858 447651 5 [id number] 3-WAY LARGE BORE Abscession Angiodynamics 1 [id number] 725793 806133 452397 5 10 FR drainage catheter SUTURE Ethicon 1 664H 119707 246242 5 ETHILON 2-0 BLK MONO FS Signature Audit [place] Stage Time Signature Unsigned Intra-Procedure 11/06/2016 Maikel 3:28:40 PM [place] RT (R) (CV) Signatures Monitor : Maikel Signature : Lucilleield RT Date : Time : [facility] [address] [place] [address]
[~2016-10-09 11:16] MED LIST changes: +COLACE100 MG PO; +CYCLOBENZAPRINE10 MG PO; +DULCOLAX10 MG/SUPP; +DURAGESIC1 PATCH .3 TRANSDERM; +ENULOSE10 G/15 ML PO; +LOPRESSOR25 MG PO; +MULTI-DAY VITAM1 TAB PO; +NORVASC10 MG PO; +OXYCODONE HCL5 MG PO; +[UNRECOGNIZED DRUG - CODE] IV
[2016-10-09] MEDS ORDERED: PROTONIX FOR OR40 MG PT (11:40)
[2016-10-09] MEDS ORDERED: PHENERGAN25 M1 PO (11:40)
[2016-10-09 12:05] VITALS: BP 121/87
[2016-10-09 14:45] LABS: CALCIUM 9.4 mg/dL (8.5-10.1); CREATININE - SERUM 1.5 mg/dL (0.6-1.3)
[2016-10-09 14:50] LABS: HEMATOCRIT 31.6 % (36.0-48.0); HEMOGLOBIN 10.3 g/dL (12-16); MCH 28.9 pg (26.0-34.0); MCHC 32.6 g/dL (31.0-37.0); MCV 88.5 fL (80.0-100.0); MEAN PLATELET VOLUME 9.5 fL (7.4-10.4); PLATELET COUNT 750 10x3/uL (130-400); RBC 3.57 10x6/uL (4.00-5.40); RDW 16.8 % (11.5-14.5); WBC 23.2 10x3/uL (4.8-10.8)
[2016-10-09 15:15] LABS: LYMPHOCYTES 12 % (15-50); MONOCYTES 10 % (2-11); NEUTROPHILS 77 % (40-80)
[2016-10-09 15:16] LABS: PLATELET ESTIMATE INCREASED
[2016-10-09 15:23] LABS: PHOSPHOROUS 4.3 mg/dL (2.5-4.9)
[2016-10-09 16:34] VITALS: BP 135/84
[2016-10-09 18:38] VITALS: BP 121/87; BMI 23.3
[2016-10-09 20:00] VITALS: BP 123/88
[2016-10-10 04:00] VITALS: BP 106/80
[2016-10-10 06:13] LABS: ALBUMIN 3.1 g/dL (3.4-5.0); ANION GAP 13.1 mmol/L (8-16); BILIRUBIN - TOTAL 0.3 mg/dL (0.2-1.3); CALCIUM 9.5 mg/dL (8.5-10.1); CARBON DIOXIDE 28.2 mmol/L (21.0-32.0); CREATININE - SERUM 1.5 mg/dL (0.6-1.3); MAGNESIUM - SERUM 2.2 mg/dL (1.8-2.4); PHOSPHOROUS 3.9 mg/dL (2.5-4.9); POTASSIUM - SERUM 3.3 mmol/L (3.5-5.1)
[2016-10-10 06:15] LABS: BASOPHILS 0.2 % (0-2); HEMATOCRIT 31.2 % (36.0-48.0); IMMATURE GRANULOCYTES 0.6 % (0-5); LYMPHOCYTES 10.6 % (15-50); MCH 28.5 pg (26.0-34.0); MCHC 32.1 g/dL (31.0-37.0); MCV 88.9 fL (80.0-100.0); MEAN PLATELET VOLUME 9.4 fL (7.4-10.4); MONOCYTES 12.8 % (2-11); NEUTROPHILS 74.8 % (40-80); PLATELET COUNT 720 10x3/uL (130-400); RBC 3.51 10x6/uL (4.00-5.40); RDW 16.8 % (11.5-14.5); WBC 20.1 10x3/uL (4.8-10.8)
[2016-10-10 09:02] VITALS: BP 105/73
[2016-10-10 12:48] VITALS: Ht 165.1 cm; Wt 63.1 kg
[2016-10-10 13:26] VITALS: BP 117/83
[2016-10-10 16:28] VITALS: BP 105/70
[2016-10-10 20:00] VITALS: BP 116/78
[2016-10-11] VITALS: BP 115/76
[2016-10-11 00:14] LABS: APPEARANCE HAZY (CLEAR); BILIRUBIN NEGATIVE (NEGATIVE); COLOR YELLOW (YELLOW); GLUCOSE NEGATIVE (NEGATIVE); KETONE NEGATIVE (NEGATIVE); LEUKOCYTE ESTERASE 2+ (NEGATIVE); NITRITE NEGATIVE (NEGATIVE); PROTEIN 1+ mg/dL (NEGATIVE); SPECIFIC GRAVITY 1.015 (1.005-1.020); UROBILINOGEN NORMAL (NORMAL)
[2016-10-11 00:15] LABS: BACTERIA MODERATE /hpf (NONE SEEN); EPITHELIAL CELLS NSEEN /hpf (0-5); WHITE CELLS - URINE >50 /hpf (0-5)
[2016-10-11 04:00] VITALS: BP 110/80
[2016-10-11 06:09] LABS: ANION GAP 14.4 mmol/L (8-16); CALCIUM 9.3 mg/dL (8.5-10.1); CARBON DIOXIDE 26.6 mmol/L (21.0-32.0); CREATININE - SERUM 1.2 mg/dL (0.6-1.3); PHOSPHOROUS 3.6 mg/dL (2.5-4.9)
[2016-10-11 07:53] VITALS: BP 113/79
[2016-10-11 12:16] VITALS: BP 99/65
[2016-10-11 15:53] VITALS: BP 103/67
[2016-10-11 20:00] VITALS: BP 106/75
[2016-10-11 20:48] LABS: APPEARANCE HAZY (CLEAR); BILIRUBIN NEGATIVE (NEGATIVE); COLOR YELLOW (YELLOW); GLUCOSE NEGATIVE (NEGATIVE); KETONE NEGATIVE (NEGATIVE); LEUKOCYTE ESTERASE 2+ (NEGATIVE); NITRITE NEGATIVE (NEGATIVE); PROTEIN TRACE mg/dL (NEGATIVE); UROBILINOGEN NORMAL (NORMAL)
[2016-10-11 20:51] LABS: BACTERIA FEW /hpf (NONE SEEN)
[2016-10-11 20:53] LABS: RED CELLS - URINE 25-50 /hpf (0-5)
[2016-10-12] VITALS (14 sets, daily range): BP systolic 82–103; BP diastolic 45–69
[2016-10-12 06:31] LABS: BASOPHILS 0.3 % (0-2); EOSINOPHILS 1.5 % (0-7); HEMOGLOBIN 8.3 g/dL (12-16); IMMATURE GRANULOCYTES 0.7 % (0-5); LYMPHOCYTES 13.3 % (15-50); MCH 28.4 pg (26.0-34.0); MCHC 31.9 g/dL (31.0-37.0); MEAN PLATELET VOLUME 9.1 fL (7.4-10.4); MONOCYTES 11.8 % (2-11); NEUTROPHILS 72.4 % (40-80); RBC 2.92 10x6/uL (4.00-5.40); RDW 16.7 % (11.5-14.5); WBC 15.3 10x3/uL (4.8-10.8)
[2016-10-12 06:37] LABS: PLATELET COUNT 539 10x3/uL (130-400)
[2016-10-12 06:48] LABS: ANION GAP 11.6 mmol/L (8-16); CALCIUM 8.8 mg/dL (8.5-10.1); CARBON DIOXIDE 25.2 mmol/L (21.0-32.0); CREATININE - SERUM 1.2 mg/dL (0.6-1.3); MAGNESIUM - SERUM 1.9 mg/dL (1.8-2.4); PHOSPHOROUS 3.3 mg/dL (2.5-4.9); POTASSIUM - SERUM 3.8 mmol/L (3.5-5.1)
[2016-10-13] VITALS (7 sets, daily range): BP systolic 92–106; BP diastolic 55–71
[2016-10-13 04:21] LABS: BASOPHILS 0.3 % (0-2); EOSINOPHILS 2.2 % (0-7); HEMATOCRIT 29.2 % (36.0-48.0); HEMOGLOBIN 9.6 g/dL (12-16); IMMATURE GRANULOCYTES 0.9 % (0-5); LYMPHOCYTES 9.4 % (15-50); MCHC 32.9 g/dL (31.0-37.0); MCV 88.2 fL (80.0-100.0); MEAN PLATELET VOLUME 9.2 fL (7.4-10.4); MONOCYTES 14.5 % (2-11); NEUTROPHILS 72.7 % (40-80); PLATELET COUNT 462 10x3/uL (130-400); RBC 3.31 10x6/uL (4.00-5.40); RDW 16.5 % (11.5-14.5); WBC 14.9 10x3/uL (4.8-10.8)
[2016-10-13 04:34] LABS: ANION GAP 12.9 mmol/L (8-16); CALCIUM 8.7 mg/dL (8.5-10.1); CARBON DIOXIDE 22.8 mmol/L (21.0-32.0); CREATININE - SERUM 1.2 mg/dL (0.6-1.3); PHOSPHOROUS 3.1 mg/dL (2.5-4.9); POTASSIUM - SERUM 3.7 mmol/L (3.5-5.1)
[2016-10-13 10:34] LABS: ALBUMIN 2.3 g/dL (3.4-5.0); BILIRUBIN - TOTAL 0.4 mg/dL (0.2-1.3); CALCIUM 8.8 mg/dL (8.5-10.1); CARBON DIOXIDE 23.9 mmol/L (21.0-32.0); CREATININE - SERUM 1.2 mg/dL (0.6-1.3); POTASSIUM - SERUM 3.9 mmol/L (3.5-5.1); PROTEIN - SERUM 7.1 g/dL (6.4-8.2)
[2016-10-14] VITALS (16 sets, daily range): BP systolic 94–112; BP diastolic 55–75
[2016-10-14 05:43] LABS: BASOPHILS 0.1 % (0-2); EOSINOPHILS 3.3 % (0-7); HEMATOCRIT 28.6 % (36.0-48.0); HEMOGLOBIN 9.4 g/dL (12-16); LYMPHOCYTES 11.4 % (15-50); MCH 28.5 pg (26.0-34.0); MCHC 32.9 g/dL (31.0-37.0); MCV 86.7 fL (80.0-100.0); MEAN PLATELET VOLUME 9.4 fL (7.4-10.4); MONOCYTES 12.6 % (2-11); NEUTROPHILS 71.6 % (40-80); PLATELET COUNT 478 10x3/uL (130-400); RDW 16.9 % (11.5-14.5)
[2016-10-14 06:02] LABS: ANION GAP 12.1 mmol/L (8-16); CALCIUM 8.7 mg/dL (8.5-10.1); CARBON DIOXIDE 25.3 mmol/L (21.0-32.0); CREATININE - SERUM 1.1 mg/dL (0.6-1.3); MAGNESIUM - SERUM 1.9 mg/dL (1.8-2.4); POTASSIUM - SERUM 3.4 mmol/L (3.5-5.1)
[2016-10-15] VITALS (24 sets, daily range): BP systolic 64–124; BP diastolic 41–80
[2016-10-15 04:57] LABS: BASOPHILS 0.1 % (0-2); EOSINOPHILS 0.5 % (0-7); HEMATOCRIT 27.5 % (36.0-48.0); HEMOGLOBIN 9.2 g/dL (12-16); IMMATURE GRANULOCYTES 2.1 % (0-5); LYMPHOCYTES 5.8 % (15-50); MCH 28.9 pg (26.0-34.0); MCHC 33.5 g/dL (31.0-37.0); MCV 86.5 fL (80.0-100.0); MEAN PLATELET VOLUME 9.4 fL (7.4-10.4); MONOCYTES 4.5 % (2-11); PLATELET COUNT 334 10x3/uL (130-400); RBC 3.18 10x6/uL (4.00-5.40); RDW 16.6 % (11.5-14.5); WBC 25.3 10x3/uL (4.8-10.8)
[2016-10-15 05:14] LABS: ALBUMIN 1.9 g/dL (3.4-5.0); ANION GAP 12.6 mmol/L (8-16); BILIRUBIN - DIRECT 0.15 mg/dL (0.00-0.30); BILIRUBIN - INDIRECT 0.15 mg/dL (0.00-1.00); BILIRUBIN - TOTAL 0.3 mg/dL (0.2-1.3); CALCIUM 8.2 mg/dL (8.5-10.1); CARBON DIOXIDE 24.2 mmol/L (21.0-32.0); CREATININE - SERUM 1.1 mg/dL (0.6-1.3); MAGNESIUM - SERUM 1.9 mg/dL (1.8-2.4); PHOSPHOROUS 2.8 mg/dL (2.5-4.9); POTASSIUM - SERUM 3.8 mmol/L (3.5-5.1); PROTEIN - SERUM 6.4 g/dL (6.4-8.2)
--- NOTE | 2016-10-15 09:30 | OP ---
PATIENT NAME: HERNAN GOLDEN MEDICAL RECORD: [id number] :85 LOCATION:.[facility] D.2312 ADMISSION DATE:10/10/16 SURGEON: MINGO CARSON MD DATE OF OPERATION: 10/14/2016 SURGEON: Mingo Carson MD ANESTHESIA: General anesthesia by Mateusz Taveras CRNA and Dr. Andrea Singh. PREOPERATIVE DIAGNOSES: Abdominal carcinomatosis, bilateral ureteral obstruction, fungal pyelonephritis, bacterial urinary tract infections. PROCEDURES: Cystoscopy, bilateral ureteral stent change with metal Resonance stent 6-Palestinian x 24 cm each. DESCRIPTION OF PROCEDURE: The patient had projectile vomiting upon induction of general anesthesia due to bowel obstruction. She was intubated and suctioning of the bronchi revealed gastric fluid to be present. NG tube was inserted by anesthesia. Pre-existing stents present in the bladder. ESTIMATED BLOOD LOSS: None. 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 She has bilateral ureteral stents for extrinsic obstruction of both ureters, which has caused renal failure. At her previous stent insertion episode, I noted that she had kody pus coming out of the left kidney; it grew Elena albicans out of the drainage fluid from the left kidney. She was treated with antifungals and then she was sent home, but without continued antifungal. My plan was for her to have ongoing antifungal medication until I change the stents. When I saw her in the office, she was again complaining of severe flank pain and her creatinine had risen to 1.6. I got her back into the hospital and had it treated with IV antifungal medication. Urine culture is also growing Streptococcus and she has been started on IV antibiotics for that by Dr. Alvarado. As an ongoing issue, she has bowel obstruction and she has been surviving on TPN. All of her lab work was fine. Her creatinine had normalized to 1.1. She remained on antibiotic and antifungal medication. Today, I plan to change her stents to clean one as the previous stents have been placed when she had an active infection with Elena. DESCRIPTION OF PROCEDURE: The patient was given induction of general anesthesia and upon relaxing her reflexes muscles, she immediately vomited and projectile fashion all over her face and out of her nose and mouth. Anesthesia immediately suctioned as much as they could and intubated her. After she was intubated, suctioning of the airways revealed a gastric fluid had gone down into the bronchi. Once the airway was secured, Dr. Singh was of the opinion that since we had already gotten her under anesthesia and she had been intubated, we may as well proceed with the stent exchange which she needs to have done. So we proceeded with the exchange of the stent. She was placed into dorsal lithotomy position and prepped and draped. A 21-Palestinian cystoscope was used for visualization. We used graspers to remove the previous stents. A Sensor wire was inserted into the right ureteral orifice and over the wire the ureteral catheter and ureteral sheath were placed up to the level of the renal pelvis. The level was indicated by a radiopaque marker at the tip of the ureteral access sheath. Once the sheath was in correct position, the ureteral catheter and the OPERATIVE REPORT [id number] HERNAN GOLDEN guidewire removed. Through the ureteral access sheath, the metal stent was inserted. Once the stent was in correct position, the ureteral access sheath was removed while a pusher maintained the stent in correct position. The stent was then pushed entirely in to the bladder. On the left side, we encountered far more resistance in the distal ureter from her tumor compression. We had to use a Glidewire to get past the obstruction, but the same procedure was then performed on the left side. At the end of the case, the patient's bladder was emptied. Anesthesia will attempt to put an NG tube down. I already told her mother that she will develop aspiration pneumonia. She is going to the ICU and Dr. Nuñez will be performing bronchoscopy there in the ICU. TRANSINT:[id number] Voice Confirmation ID: [id number] DOCUMENT ID: [id number] MINGO CARSON MD at 0930 CC: [id number] DICTATION DATE: 10/14/16 1044 PASSENGER SERVICE REPRESENTATIVE: 10/14/16 1716 ADM IN [place] [id number] [place] [address]
[2016-10-15 20:08] LABS: ACID FAST SMEAR Negative (()); AFB SPECIMEN PROCESSING Concentration (())
[2016-10-16] VITALS (20 sets, daily range): BP systolic 101–132; BP diastolic 48–77
[2016-10-16 04:28] LABS: HEMATOCRIT 24.7 % (36.0-48.0); HEMOGLOBIN 8.2 g/dL (12-16); MCHC 33.2 g/dL (31.0-37.0); MCV 87.3 fL (80.0-100.0); MEAN PLATELET VOLUME 9.6 fL (7.4-10.4); PLATELET COUNT 285 10x3/uL (130-400); RBC 2.83 10x6/uL (4.00-5.40); RDW 16.7 % (11.5-14.5); WBC 32.7 10x3/uL (4.8-10.8)
[2016-10-16 04:41] LABS: EOSINOPHILS 3 % (0-7); LYMPHOCYTES 6 % (15-50); NEUTROPHILS 75 % (40-80); PLATELET ESTIMATE NORMAL
[2016-10-16 04:45] LABS: ANION GAP 9.1 mmol/L (8-16); CALCIUM 8.2 mg/dL (8.5-10.1); CARBON DIOXIDE 25.7 mmol/L (21.0-32.0); CREATININE - SERUM 1.2 mg/dL (0.6-1.3); MAGNESIUM - SERUM 2.1 mg/dL (1.8-2.4); PHOSPHOROUS 2.8 mg/dL (2.5-4.9); POTASSIUM - SERUM 3.8 mmol/L (3.5-5.1)
[2016-10-16 13:19] LABS: FUNGUS STAIN Final report (())
[2016-10-17] VITALS (24 sets, daily range): BP systolic 101–125; BP diastolic 60–79
[2016-10-17 04:53] LABS: CALCIUM 8.6 mg/dL (8.5-10.1); CARBON DIOXIDE 24.8 mmol/L (21.0-32.0); CREATININE - SERUM 1.1 mg/dL (0.6-1.3)
[2016-10-17 05:05] LABS: ANION GAP 11.1 mmol/L (8-16)
[2016-10-17 05:10] LABS: POTASSIUM - SERUM 2.9 mmol/L (3.5-5.1)
[2016-10-17 12:15] LABS: APPEARANCE HAZY (CLEAR); BACTERIA FEW /hpf (NONE SEEN); BILIRUBIN NEGATIVE (NEGATIVE); COLOR YELLOW (YELLOW); EPITHELIAL CELLS 0-5 /hpf (0-5); GLUCOSE NEGATIVE (NEGATIVE); KETONE NEGATIVE (NEGATIVE); LEUKOCYTE ESTERASE 1+ (NEGATIVE); NITRITE NEGATIVE (NEGATIVE); PROTEIN NEGATIVE (NEGATIVE); UROBILINOGEN NORMAL (NORMAL); WHITE CELLS - URINE 0-5 /hpf (0-5)
[2016-10-18] VITALS (23 sets, daily range): BP systolic 90–133; BP diastolic 54–106
[2016-10-18 04:47] LABS: ANION GAP 10.8 mmol/L (8-16); CALCIUM 9.1 mg/dL (8.5-10.1); CARBON DIOXIDE 25.7 mmol/L (21.0-32.0); CREATININE - SERUM 1.1 mg/dL (0.6-1.3); PHOSPHOROUS 2.4 mg/dL (2.5-4.9); POTASSIUM - SERUM 3.5 mmol/L (3.5-5.1)
[2016-10-18 05:06] LABS: BASOPHILS 0.2 % (0-2); EOSINOPHILS 1.8 % (0-7); HEMOGLOBIN 8.3 g/dL (12-16); IMMATURE GRANULOCYTES 2.3 % (0-5); LYMPHOCYTES 6.9 % (15-50); MCH 28.6 pg (26.0-34.0); MCHC 33.2 g/dL (31.0-37.0); MCV 86.2 fL (80.0-100.0); MEAN PLATELET VOLUME 10.2 fL (7.4-10.4); MONOCYTES 5.9 % (2-11); NEUTROPHILS 82.9 % (40-80); PLATELET COUNT 374 10x3/uL (130-400); RDW 16.2 % (11.5-14.5); WBC 23.3 10x3/uL (4.8-10.8)
[2016-10-18 22:14] LABS: HEMATOCRIT 22.9 % (36.0-48.0); MCH 28.5 pg (26.0-34.0); MCHC 32.3 g/dL (31.0-37.0); MCV 88.1 fL (80.0-100.0); RDW 16.2 % (11.5-14.5)
[2016-10-18 22:20] LABS: PLATELET COUNT 267 10x3/uL (130-400)
[2016-10-18 22:21] LABS: HEMOGLOBIN 7.4 g/dL (12-16)
[2016-10-18 22:44] LABS: EOSINOPHILS 3 % (0-7); LYMPHOCYTES 21 % (15-50); MONOCYTES 2 % (2-11); NEUTROPHILS 47 % (40-80); PLATELET ESTIMATE NORMAL
[2016-10-19] VITALS (88 sets, daily range): BP systolic 83–130; BP diastolic 40–106
[2016-10-19 00:43] LABS: HEMATOCRIT 34.1 % (36.0-48.0); HEMOGLOBIN 11.6 g/dL (12-16)
[2016-10-19 05:17] LABS: ANION GAP 14.3 mmol/L (8-16); CALCIUM 8.8 mg/dL (8.5-10.1); CARBON DIOXIDE 21.8 mmol/L (21.0-32.0); CREATININE - SERUM 1.3 mg/dL (0.6-1.3); HEMATOCRIT 29.7 % (36.0-48.0); HEMOGLOBIN 10.1 g/dL (12-16); MAGNESIUM - SERUM 1.6 mg/dL (1.8-2.4); MCH 29.6 pg (26.0-34.0); MCV 87.1 fL (80.0-100.0); MEAN PLATELET VOLUME 10.9 fL (7.4-10.4); PLATELET COUNT 294 10x3/uL (130-400); RBC 3.41 10x6/uL (4.00-5.40); RDW 15.2 % (11.5-14.5); WBC 6.2 10x3/uL (4.8-10.8)
[2016-10-19 05:18] LABS: PHOSPHOROUS 4.3 mg/dL (2.5-4.9); POTASSIUM - SERUM 5.1 mmol/L (3.5-5.1)
[2016-10-19 05:22] LABS: EOSINOPHILS 1 % (0-7); LYMPHOCYTES 19 % (15-50); MONOCYTES 3 % (2-11); NEUTROPHILS 50 % (40-80)
[2016-10-19 05:23] LABS: PLATELET ESTIMATE NORMAL
[2016-10-20] VITALS (48 sets, daily range): BP systolic 95–112; BP diastolic 50–78
[2016-10-20 04:41] LABS: MCH 29.8 pg (26.0-34.0); MCHC 34.8 g/dL (31.0-37.0); MCV 85.7 fL (80.0-100.0); MEAN PLATELET VOLUME 11.1 fL (7.4-10.4); PLATELET COUNT 289 10x3/uL (130-400); RDW 15.6 % (11.5-14.5)
[2016-10-20 05:06] LABS: HEMATOCRIT 22.7 % (36.0-48.0); HEMOGLOBIN 7.9 g/dL (12-16); RBC 2.65 10x6/uL (4.00-5.40); WBC 11.6 10x3/uL (4.8-10.8)
[2016-10-20 05:10] LABS: ALBUMIN 1.6 g/dL (3.4-5.0); ANION GAP 14.2 mmol/L (8-16); CALCIUM 8.2 mg/dL (8.5-10.1); CARBON DIOXIDE 22.3 mmol/L (21.0-32.0); CREATININE - SERUM 1.3 mg/dL (0.6-1.3); MAGNESIUM - SERUM 1.8 mg/dL (1.8-2.4); PHOSPHOROUS 4.9 mg/dL (2.5-4.9); POTASSIUM - SERUM 4.5 mmol/L (3.5-5.1)
[2016-10-20 05:26] LABS: LYMPHOCYTES 8 % (15-50); MONOCYTES 5 % (2-11); NEUTROPHILS 52 % (40-80); PLATELET ESTIMATE NORMAL
[2016-10-20 22:40] LABS: HEMATOCRIT 25.6 % (36.0-48.0); HEMOGLOBIN 8.8 g/dL (12-16)
[2016-10-21] VITALS (24 sets, daily range): BP systolic 102–124; BP diastolic 55–84
[2016-10-21 05:20] LABS: BASOPHILS 0.2 % (0-2); HEMATOCRIT 25.6 % (36.0-48.0); HEMOGLOBIN 8.9 g/dL (12-16); IMMATURE GRANULOCYTES 5.5 % (0-5); LYMPHOCYTES 6.8 % (15-50); MCH 29.7 pg (26.0-34.0); MCHC 34.8 g/dL (31.0-37.0); MCV 85.3 fL (80.0-100.0); MEAN PLATELET VOLUME 11.2 fL (7.4-10.4); MONOCYTES 2.4 % (2-11); NEUTROPHILS 82.1 % (40-80); PLATELET COUNT 291 10x3/uL (130-400); RDW 15.8 % (11.5-14.5)
[2016-10-21 05:26] LABS: WBC 15.5 10x3/uL (4.8-10.8)
[2016-10-21 05:36] LABS: ALBUMIN 1.7 g/dL (3.4-5.0); ANION GAP 14.4 mmol/L (8-16); BILIRUBIN - TOTAL 1.36 mg/dL (0.2-1.3); CALCIUM 8.3 mg/dL (8.5-10.1); CARBON DIOXIDE 21.7 mmol/L (21.0-32.0); CREATININE - SERUM 1.3 mg/dL (0.6-1.3); MAGNESIUM - SERUM 1.8 mg/dL (1.8-2.4); PHOSPHOROUS 5.7 mg/dL (2.5-4.9); POTASSIUM - SERUM 4.1 mmol/L (3.5-5.1); PROTEIN - SERUM 5.8 g/dL (6.4-8.2)
[2016-10-22] VITALS (24 sets, daily range): BP systolic 108–130; BP diastolic 65–83
[2016-10-22 04:56] LABS: BASOPHILS 0.3 % (0-2); EOSINOPHILS 1.9 % (0-7); HEMATOCRIT 23.2 % (36.0-48.0); IMMATURE GRANULOCYTES 6.5 % (0-5); LYMPHOCYTES 7.3 % (15-50); MCH 29.9 pg (26.0-34.0); MCHC 34.5 g/dL (31.0-37.0); MCV 86.6 fL (80.0-100.0); MEAN PLATELET VOLUME 11.6 fL (7.4-10.4); MONOCYTES 4.7 % (2-11); NEUTROPHILS 79.3 % (40-80); PLATELET COUNT 323 10x3/uL (130-400); RBC 2.68 10x6/uL (4.00-5.40); RDW 16.1 % (11.5-14.5); WBC 15.7 10x3/uL (4.8-10.8)
[2016-10-22 05:06] LABS: ALBUMIN 1.7 g/dL (3.4-5.0); ANION GAP 15.2 mmol/L (8-16); BILIRUBIN - TOTAL 1.6 mg/dL (0.2-1.3); CARBON DIOXIDE 23.3 mmol/L (21.0-32.0); CREATININE - SERUM 1.2 mg/dL (0.6-1.3); PHOSPHOROUS 4.3 mg/dL (2.5-4.9); POTASSIUM - SERUM 3.5 mmol/L (3.5-5.1); PROTEIN - SERUM 5.7 g/dL (6.4-8.2)
[2016-10-23] VITALS (24 sets, daily range): BP systolic 111–147; BP diastolic 63–88
[2016-10-23 04:10] LABS: LYMPHOCYTES 6.1 % (15-50); MCH 29.9 pg (26.0-34.0); MCHC 34.6 g/dL (31.0-37.0); MCV 86.3 fL (80.0-100.0); MEAN PLATELET VOLUME 11.4 fL (7.4-10.4); NEUTROPHILS 88.4 % (40-80); PLATELET COUNT 322 10x3/uL (130-400); RDW 17.5 % (11.5-14.5); WBC 16.5 10x3/uL (4.8-10.8)
[2016-10-23 04:11] LABS: HEMATOCRIT 28.9 % (36.0-48.0); RBC 3.35 10x6/uL (4.00-5.40)
[2016-10-23 04:20] LABS: ALBUMIN 1.8 g/dL (3.4-5.0); ANION GAP 14.3 mmol/L (8-16); BILIRUBIN - TOTAL 1.91 mg/dL (0.2-1.3); CALCIUM 8.1 mg/dL (8.5-10.1); CARBON DIOXIDE 23.4 mmol/L (21.0-32.0); CREATININE - SERUM 1.1 mg/dL (0.6-1.3); MAGNESIUM - SERUM 1.7 mg/dL (1.8-2.4); PHOSPHOROUS 2.8 mg/dL (2.5-4.9); POTASSIUM - SERUM 3.7 mmol/L (3.5-5.1); PROTEIN - SERUM 6.3 g/dL (6.4-8.2)
--- NOTE | 2016-10-23 10:04 | OP ---
PATIENT NAME: HERNAN GOLDEN MEDICAL RECORD: [id number] :85 LOCATION:[facility] D.2312 ADMISSION DATE:10/10/16 SURGEON: PRATEEK CARSON MD DATE OF OPERATION: 10/22/2016 SURGEON: Prateek Carson MD ANESTHESIA: General anesthesia. PREOPERATIVE DIAGNOSIS: Bilateral hydroureteronephrosis, abdominal carcinomatosis, extended-spectrum beta-lactamase urinary tract infection. POSTOPERATIVE DIAGNOSES: Bilateral hydroureteronephrosis, abdominal carcinomatosis, extended-spectrum beta-lactamase urinary tract infection. FINDINGS: Severe stenosis of the left ureter, very difficult to insert the stent. PROCEDURE: Cystoscopy and bilateral ureteral stent exchange, 6-Malay x 24 cm. SPECIMENS: Bilateral ureteral stents. ESTIMATED BLOOD LOSS: None. 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 She has renal failure from bilateral hydroureteronephrosis. I changed her preexisting plastic bilateral ureteral stents to a metal one a couple of months ago. During the stent insertion, we released pus from the left kidney. The culture from the pus grew Elena albicans. She needed to have the stents changed that they were inserted while she was infected. During that stent changed she vomited a lot of gastric fluid that she had chronic bowel obstruction. She is in the intensive care unit with aspiration pneumonia now. In the meantime, she had an exploratory laparotomy to try to relieve the obstruction, but apparently this was not successful and a diverting colostomy was placed instead. Pathology shows widespread cancer in all specimens. In the interim, she is developing ESBL urinary tract infection. Thus, the stents that I put in about a week ago are infected again. We do need to change them to sterile stents. She has been on IV antibiotics in the intensive care unit. We did not give her any further IV antibiotics. DESCRIPTION OF PROCEDURE: The patient was already intubated and ventilated. She was placed in the dorsal lithotomy position, prepped and draped. We then inserted a 21-Malay cystoscope with 30-degree lens. The 2 stents were seen. Each of them were removed by pulling them out using a grasping forceps. A Sensor wire was then inserted into the right ureteral orifice. Once the wire was in the renal pelvis, the ureteral sheath and the ureteral catheter were placed over the wire up to the renal pelvis level. The ureteral catheter and the guidewire were then entirely removed, leaving the ureteral sheath in place. Through the lumen of the sheath, we inserted the metal stent. Once the stent was in correct position, the sheath was withdrawn. The distal end of stent was pushed entirely into the bladder using a pusher. We then tried to perform the same procedure on the left side. However, the wire could not get up the left ureter due to severe and very tight obstruction in the distal ureter. I had to insert an open-ended ureteral catheter 5-Malay into the left ureteral orifice as far as it would go. The wire was then pushed up 2[address] OPERATIVE REPORT [id number] HERNAN GOLDEN through the ureteral catheter. I then switched the ureteral catheter for the [employer] ureteral sheath and ureteral catheter. This combination was stiff enough to get past the obstruction and into the renal pelvis. Then, the rest of the procedure was the same as on the opposite side. Once the 2 stents were in position, the scope was removed. A Tamayo catheter with temperature sensing probe was placed into the bladder. The patient will be transferred back to the intensive care unit. TRANSINT:[id number] Voice Confirmation ID: [id number] DOCUMENT ID: [id number] PRATEEK CARSON MD at 1004 CC: [id number] DICTATION DATE: 10/22/16 1443 BULB SORTER: 10/22/[address] [facility] [address] [place] [address]
[2016-10-24] VITALS (23 sets, daily range): BP systolic 104–145; BP diastolic 57–93
[2016-10-24 04:28] LABS: BASOPHILS 0.3 % (0-2); EOSINOPHILS 0.6 % (0-7); HEMATOCRIT 29.6 % (36.0-48.0); HEMOGLOBIN 10.1 g/dL (12-16); LYMPHOCYTES 5.5 % (15-50); MCH 29.8 pg (26.0-34.0); MCHC 34.1 g/dL (31.0-37.0); MCV 87.3 fL (80.0-100.0); MEAN PLATELET VOLUME 11.3 fL (7.4-10.4); MONOCYTES 6.9 % (2-11); NEUTROPHILS 77.7 % (40-80); PLATELET COUNT 414 10x3/uL (130-400); RBC 3.39 10x6/uL (4.00-5.40); RDW 16.1 % (11.5-14.5)
[2016-10-24 04:43] LABS: ALBUMIN 1.9 g/dL (3.4-5.0); ANION GAP 11.1 mmol/L (8-16); BILIRUBIN - TOTAL 2.7 mg/dL (0.2-1.3); CARBON DIOXIDE 27.5 mmol/L (21.0-32.0); MAGNESIUM - SERUM 1.4 mg/dL (1.8-2.4); PHOSPHOROUS 2.3 mg/dL (2.5-4.9); POTASSIUM - SERUM 3.6 mmol/L (3.5-5.1); PROTEIN - SERUM 6.1 g/dL (6.4-8.2)
[2016-10-24 13:59] LABS: APTT 40.8 SECONDS (22.8-39.4); INR 1.41 (0.85-1.17); PROTIME 17.1 SECONDS (11.6-15.0)
[2016-10-25] VITALS (29 sets, daily range): BP systolic 106–1432; BP diastolic 11–91
[2016-10-25 03:33] LABS: BASOPHILS 0.4 % (0-2); EOSINOPHILS 1.6 % (0-7); HEMATOCRIT 28.7 % (36.0-48.0); HEMOGLOBIN 9.5 g/dL (12-16); LYMPHOCYTES 5.4 % (15-50); MCH 29.2 pg (26.0-34.0); MCHC 33.1 g/dL (31.0-37.0); MCV 88.3 fL (80.0-100.0); MEAN PLATELET VOLUME 10.9 fL (7.4-10.4); MONOCYTES 11.2 % (2-11); NEUTROPHILS 73.4 % (40-80); PLATELET COUNT 438 10x3/uL (130-400); RBC 3.25 10x6/uL (4.00-5.40); RDW 15.6 % (11.5-14.5); WBC 17.9 10x3/uL (4.8-10.8)
[2016-10-25 04:01] LABS: ALBUMIN 2.1 g/dL (3.4-5.0); ANION GAP 12.4 mmol/L (8-16); BILIRUBIN - TOTAL 3.19 mg/dL (0.2-1.3); CALCIUM 8.4 mg/dL (8.5-10.1); CARBON DIOXIDE 28.4 mmol/L (21.0-32.0); POTASSIUM - SERUM 3.8 mmol/L (3.5-5.1); PROTEIN - SERUM 6.5 g/dL (6.4-8.2)
[2016-10-25 04:02] LABS: MAGNESIUM - SERUM 1.9 mg/dL (1.8-2.4)
[2016-10-25 09:03] LABS: APTT 39.5 SECONDS (22.8-39.4); INR 1.33 (0.85-1.17); PROTIME 16.3 SECONDS (11.6-15.0)
[2016-10-25 17:25] LABS: APPEARANCE CLEAR (CLEAR); BILIRUBIN NEGATIVE (NEGATIVE); COLOR YELLOW (YELLOW); GLUCOSE NEGATIVE (NEGATIVE); KETONE NEGATIVE (NEGATIVE); LEUKOCYTE ESTERASE 1+ (NEGATIVE); NITRITE NEGATIVE (NEGATIVE); PROTEIN TRACE mg/dL (NEGATIVE); UROBILINOGEN NORMAL (NORMAL)
[2016-10-25 17:27] LABS: BACTERIA MODERATE /hpf (NONE SEEN); RED CELLS - URINE 0-5 /hpf (0-5); WHITE CELLS - URINE 0-5 /hpf (0-5)
[2016-10-26] VITALS (23 sets, daily range): BP systolic 109–134; BP diastolic 67–94
[2016-10-26 04:12] LABS: BASOPHILS 0.3 % (0-2); HEMATOCRIT 28.1 % (36.0-48.0); HEMOGLOBIN 9.3 g/dL (12-16); IMMATURE GRANULOCYTES 5.2 % (0-5); LYMPHOCYTES 6.7 % (15-50); MCH 29.3 pg (26.0-34.0); MCHC 33.1 g/dL (31.0-37.0); MCV 88.6 fL (80.0-100.0); MEAN PLATELET VOLUME 10.5 fL (7.4-10.4); MONOCYTES 10.5 % (2-11); NEUTROPHILS 76.3 % (40-80); PLATELET COUNT 529 10x3/uL (130-400); RBC 3.17 10x6/uL (4.00-5.40); RDW 15.5 % (11.5-14.5); WBC 19.1 10x3/uL (4.8-10.8)
[2016-10-26 04:24] LABS: ALBUMIN 2.3 g/dL (3.4-5.0); ANION GAP 12.6 mmol/L (8-16); BILIRUBIN - TOTAL 2.5 mg/dL (0.2-1.3); CALCIUM 8.5 mg/dL (8.5-10.1); CARBON DIOXIDE 29.2 mmol/L (21.0-32.0); MAGNESIUM - SERUM 1.6 mg/dL (1.8-2.4); PHOSPHOROUS 3.5 mg/dL (2.5-4.9); POTASSIUM - SERUM 3.8 mmol/L (3.5-5.1); PROTEIN - SERUM 6.7 g/dL (6.4-8.2)
--- NOTE | 2016-10-26 14:41 | OP ---
PATIENT NAME: HERNAN GOLDEN MEDICAL RECORD: [id number] :85 LOCATION:[facility] D.2301 ADMISSION DATE:10/10/16 SURGEON: JONNY PHOENIX MD DATE OF OPERATION: 10/18/2016 PREOPERATIVE DIAGNOSES: 1. Small bowel obstruction. 2. Metastatic appendiceal adenocarcinoma. 3. Fungal pyelonephritis. POSTOPERATIVE DIAGNOSES: 1. Small bowel obstruction. 2. Metastatic appendiceal adenocarcinoma. 3. Fungal pyelonephritis. PROCEDURES: 1. Exploratory laparotomy. 2. Extensive lysis of adhesions. 3. Small bowel resection. 4. Right hemicolectomy. 5. Proximal rectal excision. 6. End-sigmoid colostomy. SURGEON: Jonny Phoenix MD. REPORT OF PROCEDURE: The patient's abdomen was prepped and draped in sterile fashion. A midline incision was performed, entering a hostile abdomen with large amount of old scar tissue and tumor beds present in the subcutaneous space as we encountered these beds that were on the superior and inferior aspect of the abdominal wall. Penetrating this was like trying to penetrate stone. We were able to get through with sharp dissection with scissors as we continued dissecting the abdominal cavity. A tedious lysis of adhesions was performed. The patient had a known enterocutaneous fistula on the inferior abdomen. This was encountered and there was a large spillage of enteral contents. We cleaned this up as the case progressed. We eventually were able to free up all of the small bowel from the ligament of Treitz to the terminal ileum. There were noted to be multiple areas of tumor burden in the pelvis causing obstructions and stenoses of the small bowel and of the proximal rectum. The patient had multiple enterotomies in the distal small bowel from these tumors which had to be dissected free. We eventually removed about 15-cm segment of mid jejunum and this was done by transecting the ends using a 55 blue load EKMI stapler followed by a hqbwo-lpt-wqe technique with removal of the omentum and then reanastomosis with a oydp-qx-mbcr technique using a 55 blue load KEMI stapler, with the enterotomies closed off with a 30 blue load TA stapler and then oversewn with 3-0 silks in a Lembert fashion. The distal small bowel that had been in the pelvis was just eaten up with tumor and had an enterocutaneous fistula. This progressed all the way over to the right colon. We ended up by mobilizing the right colon and removed the right colon due to the fact that the blood supply had been seriously injured during the surgery. The small bowel and the proximal transverse colon were transected with a 55 blue load KEMI stapler. The mesentery was taken down with sequential qkeql-ezd-yqd techniques with 3-0 silks. A duam-ec-pdsh anastomosis was performed again using a 55 blue load KEMI stapler followed by closure of the enterotomies with 30 blue load TA stapler. The staple lines were oversewn with Lemberted 3-0 silks. The rectum had been detached due to the large tumor burden. There was a rectal stump still present, OPERATIVE REPORT [id number] HERNAN GOLDEN but the patient's colon was unprepped and there was a large amount of stool present within it. The rectal stump was oversewn with a running 0 Prolene. The proximal end of the rectum was transected and sent off for permanent specimen. The normal-appearing sigmoid colon was then brought up through an opening made in the left lower quadrant and matured with 4-0 Vicryls in a brooking fashion. We then irrigated out the abdomen thoroughly with normal saline trying to remove any gastric contents that were present. At the conclusion of the case, there appeared to be a clean abdomen. The midline fascia had a significant amount of tumor burden making it very difficult for closure. We ended up closing it with looped #1 PDS and the skin was then closed with baldo. COMPLICATIONS: None. CONDITION: Fair. ANESTHESIA: General endotracheal. BLOOD LOSS: 500 mL. TRANSINT:[id number] Voice Confirmation ID: [id number] DOCUMENT ID: [id number] JONNY PHOENIX MD at 1441 CC: MIGUEL MONAHAN MD and MINGO CARSON MD [id number] DICTATION DATE: 10/18/162139 ADZING AND BORING MACHINE FEEDER: 10/19/16222 [facility] IN [place] [address] [place] [id number]
[2016-10-27] VITALS (24 sets, daily range): BP systolic 115–136; BP diastolic 64–90
[2016-10-27 04:27] LABS: BASOPHILS 0.3 % (0-2); EOSINOPHILS 0.6 % (0-7); HEMATOCRIT 26.5 % (36.0-48.0); HEMOGLOBIN 8.8 g/dL (12-16); IMMATURE GRANULOCYTES 2.6 % (0-5); LYMPHOCYTES 6.1 % (15-50); MCH 29.4 pg (26.0-34.0); MCHC 33.2 g/dL (31.0-37.0); MCV 88.6 fL (80.0-100.0); MEAN PLATELET VOLUME 10.2 fL (7.4-10.4); MONOCYTES 11.1 % (2-11); NEUTROPHILS 79.3 % (40-80); PLATELET COUNT 656 10x3/uL (130-400); RBC 2.99 10x6/uL (4.00-5.40); RDW 15.3 % (11.5-14.5); WBC 21.8 10x3/uL (4.8-10.8)
[2016-10-27 04:41] LABS: ALBUMIN 2.4 g/dL (3.4-5.0); ANION GAP 13.1 mmol/L (8-16); BILIRUBIN - TOTAL 1.8 mg/dL (0.2-1.3); CALCIUM 8.8 mg/dL (8.5-10.1); CARBON DIOXIDE 27.9 mmol/L (21.0-32.0); CREATININE - SERUM 1.1 mg/dL (0.6-1.3); PHOSPHOROUS 3.3 mg/dL (2.5-4.9)
[2016-10-28] VITALS (25 sets, daily range): BP systolic 112–126; BP diastolic 62–78
[2016-10-28 04:04] LABS: BASOPHILS 0.3 % (0-2); EOSINOPHILS 0.8 % (0-7); HEMATOCRIT 26.4 % (36.0-48.0); HEMOGLOBIN 8.7 g/dL (12-16); IMMATURE GRANULOCYTES 2.6 % (0-5); LYMPHOCYTES 7.7 % (15-50); MCH 29.4 pg (26.0-34.0); MCV 89.2 fL (80.0-100.0); MEAN PLATELET VOLUME 9.7 fL (7.4-10.4); MONOCYTES 11.8 % (2-11); NEUTROPHILS 76.8 % (40-80); PLATELET COUNT 728 10x3/uL (130-400); RBC 2.96 10x6/uL (4.00-5.40); RDW 15.3 % (11.5-14.5); WBC 20.8 10x3/uL (4.8-10.8)
[2016-10-28 04:21] LABS: ALBUMIN 2.6 g/dL (3.4-5.0); ANION GAP 13.1 mmol/L (8-16); BILIRUBIN - TOTAL 1.6 mg/dL (0.2-1.3); CALCIUM 8.7 mg/dL (8.5-10.1); CREATININE - SERUM 1.1 mg/dL (0.6-1.3); MAGNESIUM - SERUM 1.9 mg/dL (1.8-2.4); PHOSPHOROUS 2.8 mg/dL (2.5-4.9); POTASSIUM - SERUM 4.1 mmol/L (3.5-5.1); PROTEIN - SERUM 7.3 g/dL (6.4-8.2)
[2016-10-28 11:13] LABS: FUNGUS STAIN Final report (())
[2016-10-29] VITALS (24 sets, daily range): BP systolic 108–129; BP diastolic 65–86
[2016-10-29 04:55] LABS: BASOPHILS 0.3 % (0-2); EOSINOPHILS 1.1 % (0-7); HEMATOCRIT 30.3 % (36.0-48.0); IMMATURE GRANULOCYTES 3.6 % (0-5); LYMPHOCYTES 6.4 % (15-50); MCH 29.4 pg (26.0-34.0); MCV 89.1 fL (80.0-100.0); MONOCYTES 14.6 % (2-11); PLATELET COUNT 838 10x3/uL (130-400); RDW 15.3 % (11.5-14.5); WBC 17.6 10x3/uL (4.8-10.8)
[2016-10-29 05:28] LABS: ALBUMIN 2.7 g/dL (3.4-5.0); ANION GAP 14.3 mmol/L (8-16); BILIRUBIN - TOTAL 1.5 mg/dL (0.2-1.3); CALCIUM 9.2 mg/dL (8.5-10.1); CREATININE - SERUM 1.2 mg/dL (0.6-1.3); PHOSPHOROUS 3.1 mg/dL (2.5-4.9); POTASSIUM - SERUM 4.3 mmol/L (3.5-5.1); PROTEIN - SERUM 7.6 g/dL (6.4-8.2)
[2016-10-30] VITALS (23 sets, daily range): BP systolic 109–130; BP diastolic 65–83
[2016-10-30 04:36] LABS: BASOPHILS 0.4 % (0-2); EOSINOPHILS 1.7 % (0-7); HEMATOCRIT 26.9 % (36.0-48.0); HEMOGLOBIN 8.6 g/dL (12-16); LYMPHOCYTES 7.6 % (15-50); MCH 28.6 pg (26.0-34.0); MCV 89.4 fL (80.0-100.0); MEAN PLATELET VOLUME 9.7 fL (7.4-10.4); MONOCYTES 17.4 % (2-11); NEUTROPHILS 69.9 % (40-80); RBC 3.01 10x6/uL (4.00-5.40); RDW 15.2 % (11.5-14.5); WBC 16.1 10x3/uL (4.8-10.8)
[2016-10-30 04:40] LABS: ALBUMIN 2.7 g/dL (3.4-5.0); ANION GAP 15.4 mmol/L (8-16); BILIRUBIN - TOTAL 1.65 mg/dL (0.2-1.3); CALCIUM 8.9 mg/dL (8.5-10.1); CARBON DIOXIDE 25.2 mmol/L (21.0-32.0); CREATININE - SERUM 1.3 mg/dL (0.6-1.3); MAGNESIUM - SERUM 1.9 mg/dL (1.8-2.4); PHOSPHOROUS 3.7 mg/dL (2.5-4.9); POTASSIUM - SERUM 4.6 mmol/L (3.5-5.1); PROTEIN - SERUM 8.1 g/dL (6.4-8.2)
[2016-10-30 04:41] LABS: PLATELET COUNT 1021 10x3/uL (130-400)
[2016-10-30 05:10] LABS: PLATELET ESTIMATE INCREASED
[2016-10-31] VITALS (24 sets, daily range): BP systolic 104–122; BP diastolic 63–83
[2016-10-31 04:18] LABS: EOSINOPHILS 2.1 % (0-7); HEMATOCRIT 26.2 % (36.0-48.0); HEMOGLOBIN 8.5 g/dL (12-16); IMMATURE GRANULOCYTES 3.2 % (0-5); LYMPHOCYTES 16.1 % (15-50); MCH 28.8 pg (26.0-34.0); MCHC 32.4 g/dL (31.0-37.0); MCV 88.8 fL (80.0-100.0); MEAN PLATELET VOLUME 9.6 fL (7.4-10.4); MONOCYTES 13.6 % (2-11); RBC 2.95 10x6/uL (4.00-5.40); RDW 15.2 % (11.5-14.5); WBC 12.6 10x3/uL (4.8-10.8)
[2016-10-31 04:21] LABS: PLATELET COUNT 1051 10x3/uL (130-400)
[2016-10-31 04:29] LABS: ALBUMIN 2.9 g/dL (3.4-5.0); ANION GAP 14.5 mmol/L (8-16); BILIRUBIN - TOTAL 1.39 mg/dL (0.2-1.3); CALCIUM 8.9 mg/dL (8.5-10.1); CREATININE - SERUM 1.3 mg/dL (0.6-1.3); PHOSPHOROUS 3.9 mg/dL (2.5-4.9); POTASSIUM - SERUM 4.5 mmol/L (3.5-5.1); PROTEIN - SERUM 8.4 g/dL (6.4-8.2)
--- NOTE | 2016-10-31 19:15 | EC ---
PATIENT:HERNAN GOLDEN DATE OF SERVICE: 10/10/16 SEX: F MEDICAL RECORD: [id number] DATE OF : [birth year] LOCATION:[facility] D230 AGE OF PATIENT: 31 ADMISSION DATE: 10/10/16 REFERRING PHYSICIAN: INTERPRETING PHYSICIAN: STEPHANIE MOORE MD ECHOCARDIOGRAM REPORT ECHO CHARGES 4 ECHO COMPLETE CLINICAL DIAGNOSIS: HYPOXEMIA ECHOCARDIOGRAPHIC MEASUREMENTS (adult normal given) AC root (d.<3.7cm) 3.6 cm LV Septum d (<1.2 cm> 0.90 cm Valve Excursion 1.6 cm LV Septum (systole) 1.1 cm Left Atria (s.<4.0cm> 3.2 cm LVPW d(<1.2cm) 1.0 cm RV (d.<2.3cm) 3.8 cm LVPW (sytole) 1.4 cm LV diastole(<5.6CM) 5.7 cm MV E-F(>70mm/sec) cm LV systole 3.0 cm LVOT Diameter 1.8 cm MV exc.(>10mm) 2.3 cm Est.ejection fraction (50-75%) % Pericardial Effusion N DOPPLER: LVIT cm/sec A 56.0 cm/sec E 79.0 cm/sec LA cm/sec RVSP 28 mmHg LVOT 89 cm/sec AOP1/2T m/s Asc. Ao 120 cm/sec RVOT 64 cm/sec RA cm/sec PA 97 cm/sec AV Gradient Peak 5.74 mmHg AV Mean 2.76 mmHg AV Area 1.9 cm MV Gradient Peak 4.23 mmHg MV Mean 1.86 mmHg MV Area cm COMMENTS: Qm Nurse: Ludy GUNTER Wash Operator: 4 Dr. Moore TAPE# PACS DATE OF SERVICE: 10/15/2016 PROCEDURE: Echocardiogram. FINDINGS: 1. The left ventricle is normal size. The LV wall motions appear to be intact without any evidence of regional wall motion abnormalities. The patient's ejection fraction appears to be on the lower aspect of normal, approximately 50-55%. There is a septal bounce recognized on the parasternal imaging. 2. The right ventricle is not well visualized, but appears to be normal size, ECHOCARDIOGRAM REPORT [id number] HERNAN GOLDEN normal function. 3. The left atrium, again is difficult to visualize; however, appears to be normal size and normal function. 4. The mitral valve is difficult to visualize on this, but grossly is normal. There is no appreciated or significant mitral regurgitation. There is no evidence of mitral stenosis. 5. The inflow characteristics in the left ventricle appear to be normal without any evidence of diastolic dysfunction. 6. The right atrium is normal size, normal function. 7. The tricuspid valve appears to have mild tricuspid regurgitation. There is no evidence of pulmonary hypertension or elevated pulmonary pressures. 8. The pulmonic valve is not well visualized. 9. The aortic valve is not well visualized, but grossly normal. 10. The pericardium is normal. 11. The IVC is normal size and collapses with inspiration, indicating likely normal CVP or possibly slightly low. In conclusion, the patient's overall function is normal, structurally is normal for patient's age. Appears to have a normal echocardiographic study. TRANSINT:[id number] Voice Confirmation ID: [id number] DOCUMENT ID: [id number] 10/31/2016 Edited to correct date of service, dm. STEPHANIE MOORE MD at 1915 CC: [id number] DICTATION DATE: 10/16/16 0739 EARLY HEAD START DIRECTOR: 10/16/16 0813 [facility] [address] [place] [address]
[2016-11-01] VITALS (12 sets, daily range): BP systolic 102–125; BP diastolic 63–76
[2016-11-01 04:56] LABS: EOSINOPHILS 1.8 % (0-7); HEMATOCRIT 25.7 % (36.0-48.0); HEMOGLOBIN 8.4 g/dL (12-16); IMMATURE GRANULOCYTES 2.6 % (0-5); LYMPHOCYTES 9.2 % (15-50); MCH 29.4 pg (26.0-34.0); MCHC 32.7 g/dL (31.0-37.0); MCV 89.9 fL (80.0-100.0); MEAN PLATELET VOLUME 9.7 fL (7.4-10.4); MONOCYTES 27.5 % (2-11); NEUTROPHILS 57.9 % (40-80); RBC 2.86 10x6/uL (4.00-5.40); RDW 15.4 % (11.5-14.5); WBC 13.7 10x3/uL (4.8-10.8)
[2016-11-01 04:58] LABS: ALBUMIN 3.2 g/dL (3.4-5.0); ANION GAP 17.1 mmol/L (8-16); BILIRUBIN - TOTAL 1.3 mg/dL (0.2-1.3); CALCIUM 9.3 mg/dL (8.5-10.1); CARBON DIOXIDE 21.3 mmol/L (21.0-32.0); CREATININE - SERUM 1.3 mg/dL (0.6-1.3); MAGNESIUM - SERUM 2.2 mg/dL (1.8-2.4); PHOSPHOROUS 4.1 mg/dL (2.5-4.9); POTASSIUM - SERUM 4.4 mmol/L (3.5-5.1); PROTEIN - SERUM 8.7 g/dL (6.4-8.2)
[2016-11-01 05:06] LABS: PLATELET COUNT 1128 10x3/uL (130-400)
[2016-11-02 03:00] VITALS: BP 114/65
[2016-11-02 05:05] LABS: BASOPHILS 1.1 % (0-2); EOSINOPHILS 3.4 % (0-7); HEMATOCRIT 25.8 % (36.0-48.0); HEMOGLOBIN 8.2 g/dL (12-16); IMMATURE GRANULOCYTES 2.1 % (0-5); LYMPHOCYTES 13.7 % (15-50); MCH 28.7 pg (26.0-34.0); MCHC 31.8 g/dL (31.0-37.0); MCV 90.2 fL (80.0-100.0); MEAN PLATELET VOLUME 9.7 fL (7.4-10.4); MONOCYTES 25.3 % (2-11); NEUTROPHILS 54.4 % (40-80); PLATELET COUNT 1057 10x3/uL (130-400); RBC 2.86 10x6/uL (4.00-5.40); RDW 15.6 % (11.5-14.5); WBC 12.2 10x3/uL (4.8-10.8)
[2016-11-02 05:15] LABS: ANION GAP 16.2 mmol/L (8-16); BILIRUBIN - TOTAL 1.02 mg/dL (0.2-1.3); CALCIUM 8.9 mg/dL (8.5-10.1); CARBON DIOXIDE 19.8 mmol/L (21.0-32.0); CREATININE - SERUM 1.2 mg/dL (0.6-1.3); MAGNESIUM - SERUM 1.9 mg/dL (1.8-2.4); PHOSPHOROUS 4.6 mg/dL (2.5-4.9); PROTEIN - SERUM 8.5 g/dL (6.4-8.2)
[2016-11-02 12:40] VITALS: BP 110/64
[2016-11-02 13:11] LABS: FUNGUS MYCOLOGY CULTURE Preliminary report (())
[2016-11-02 15:57] VITALS: BP 105/63
[2016-11-02 20:00] VITALS: BP 102/66
[2016-11-03] VITALS: BP 106/69
[2016-11-03 04:00] VITALS: BP 101/62
[2016-11-03 08:20] VITALS: BP 108/70
[2016-11-03 08:35] LABS: HEMATOCRIT 24.1 % (36.0-48.0); HEMOGLOBIN 7.7 g/dL (12-16); MCH 28.8 pg (26.0-34.0); MCV 90.3 fL (80.0-100.0); MEAN PLATELET VOLUME 9.6 fL (7.4-10.4); RBC 2.67 10x6/uL (4.00-5.40); RDW 15.6 % (11.5-14.5); WBC 12.8 10x3/uL (4.8-10.8)
[2016-11-03 08:38] LABS: PLATELET COUNT 1052 10x3/uL (130-400)
[2016-11-03 09:04] LABS: ALBUMIN 2.5 g/dL (3.4-5.0); ANION GAP 44.7 mmol/L (8-16); BILIRUBIN - TOTAL 0.85 mg/dL (0.2-1.3); CALCIUM 7.4 mg/dL (8.5-10.1); CARBON DIOXIDE 16.1 mmol/L (21.0-32.0); CREATININE - SERUM 1.1 mg/dL (0.6-1.3); MAGNESIUM - SERUM 2.2 mg/dL (1.8-2.4); PHOSPHOROUS 4.1 mg/dL (2.5-4.9); POTASSIUM - SERUM 3.8 mmol/L (3.5-5.1); PROTEIN - SERUM 7.2 g/dL (6.4-8.2)
[2016-11-03 09:08] LABS: ANISOCYTOSIS OCC; BASOPHILS 1 % (0-2); EOSINOPHILS 3 % (0-7); LYMPHOCYTES 17 % (15-50); MONOCYTES 12 % (2-11); NEUTROPHILS 67 % (40-80); PLATELET ESTIMATE INCREASED; POIKILOCYTOSIS OCC; TARGET CELLS OCC
[2016-11-03 12:43] VITALS: BP 106/65
[2016-11-03 15:44] VITALS: BP 123/72
[2016-11-03 20:00] VITALS: BP 100/66
[2016-11-04] VITALS (7 sets, daily range): BP systolic 102–112; BP diastolic 56–64
[2016-11-04 06:27] LABS: BASOPHILS 0.7 % (0-2); EOSINOPHILS 4.2 % (0-7); HEMATOCRIT 23.6 % (36.0-48.0); IMMATURE GRANULOCYTES 1.7 % (0-5); LYMPHOCYTES 11.6 % (15-50); MCH 28.8 pg (26.0-34.0); MCHC 31.8 g/dL (31.0-37.0); MCV 90.8 fL (80.0-100.0); MEAN PLATELET VOLUME 9.4 fL (7.4-10.4); MONOCYTES 17.7 % (2-11); NEUTROPHILS 64.1 % (40-80); PLATELET COUNT 987 10x3/uL (130-400); RDW 15.8 % (11.5-14.5)
[2016-11-04 06:33] LABS: HEMOGLOBIN 7.5 g/dL (12-16)
[2016-11-04 07:15] LABS: ANION GAP 17.4 mmol/L (8-16); BILIRUBIN - TOTAL 0.79 mg/dL (0.2-1.3); CALCIUM 8.7 mg/dL (8.5-10.1); CARBON DIOXIDE 18.8 mmol/L (21.0-32.0); CREATININE - SERUM 1.1 mg/dL (0.6-1.3); MAGNESIUM - SERUM 1.8 mg/dL (1.8-2.4); PHOSPHOROUS 4.8 mg/dL (2.5-4.9); POTASSIUM - SERUM 4.2 mmol/L (3.5-5.1); PROTEIN - SERUM 8.3 g/dL (6.4-8.2)
[2016-11-05 04:00] VITALS: BP 105/66
[2016-11-05 06:29] LABS: BASOPHILS 0.6 % (0-2); EOSINOPHILS 4.7 % (0-7); HEMOGLOBIN 7.9 g/dL (12-16); IMMATURE GRANULOCYTES 1.5 % (0-5); LYMPHOCYTES 11.5 % (15-50); MCH 28.6 pg (26.0-34.0); MCHC 31.6 g/dL (31.0-37.0); MCV 90.6 fL (80.0-100.0); MEAN PLATELET VOLUME 9.3 fL (7.4-10.4); MONOCYTES 16.2 % (2-11); NEUTROPHILS 65.5 % (40-80); PLATELET COUNT 977 10x3/uL (130-400); RBC 2.76 10x6/uL (4.00-5.40); RDW 15.8 % (11.5-14.5)
[2016-11-05 06:53] LABS: ANION GAP 19.7 mmol/L (8-16); BILIRUBIN - TOTAL 0.61 mg/dL (0.2-1.3); CALCIUM 8.7 mg/dL (8.5-10.1); CARBON DIOXIDE 16.3 mmol/L (21.0-32.0); CREATININE - SERUM 1.1 mg/dL (0.6-1.3); MAGNESIUM - SERUM 1.6 mg/dL (1.8-2.4); PHOSPHOROUS 4.7 mg/dL (2.5-4.9); PROTEIN - SERUM 8.3 g/dL (6.4-8.2)
[2016-11-05 08:18] VITALS: BP 120/60
[2016-11-05 12:44] VITALS: BP 113/67
[2016-11-06] VITALS (11 sets, daily range): BP systolic 103–120; BP diastolic 58–79
[2016-11-06 06:55] LABS: ANION GAP 18.6 mmol/L (8-16); CALCIUM 9.5 mg/dL (8.5-10.1); CARBON DIOXIDE 16.1 mmol/L (21.0-32.0); MAGNESIUM - SERUM 1.5 mg/dL (1.8-2.4); PHOSPHOROUS 4.7 mg/dL (2.5-4.9); POTASSIUM - SERUM 3.7 mmol/L (3.5-5.1)
[2016-11-06 11:21] LABS: INR 1.18 (0.85-1.17); PROTIME 14.9 SECONDS (11.6-15.0)
[2016-11-07 04:00] VITALS: BP 110/66
[2016-11-07 06:01] LABS: ANION GAP 18.2 mmol/L (8-16); CALCIUM 10.1 mg/dL (8.5-10.1); CARBON DIOXIDE 17.6 mmol/L (21.0-32.0); CREATININE - SERUM 1.1 mg/dL (0.6-1.3); MAGNESIUM - SERUM 1.5 mg/dL (1.8-2.4); PHOSPHOROUS 4.5 mg/dL (2.5-4.9); POTASSIUM - SERUM 3.8 mmol/L (3.5-5.1)
[2016-11-07 09:39] VITALS: BP 106/66
[2016-11-07 12:57] VITALS: BP 100/63
[2016-11-07 16:30] VITALS: BP 107/67
[2016-11-07 20:00] VITALS: BP 121/72
[2016-11-08] VITALS: BP 108/93
[2016-11-08 04:00] VITALS: BP 108/63
[2016-11-08 07:09] LABS: ANION GAP 18.5 mmol/L (8-16); CALCIUM 9.7 mg/dL (8.5-10.1); CARBON DIOXIDE 19.2 mmol/L (21.0-32.0); CREATININE - SERUM 1.2 mg/dL (0.6-1.3); MAGNESIUM - SERUM 1.4 mg/dL (1.8-2.4); PHOSPHOROUS 4.4 mg/dL (2.5-4.9); POTASSIUM - SERUM 3.7 mmol/L (3.5-5.1)
[2016-11-08 09:31] VITALS: BP 109/64
[2016-11-08] MEDS ORDERED: DURAGESIC1 PATCH .3 TRANSDERM (12:13)
[2016-11-08] MEDS ORDERED: DILAUDID2 MG PO (12:14)
[2016-11-08] MEDS ORDERED: MS CONTIN30 MG PO (12:15)
[2016-11-08 12:46] VITALS: BP 110/58
[2016-11-11 08:09] LABS: FUNGUS MYCOLOGY CULTURE Final report (())
== END 2016-11-08 17:44 | disposition home health service (06) | DRG 673 ==
LOC: D.MS 11:16 → OBSVTIME 10-10 09:00 → D.MS 10-10 10:26 → D.ICU 10-10 10:26 → D.MS 11-02 07:52
PROVIDERS: General Practice; Internal Medicine Medical Oncology; Internal Medicine Pulmonary Disease; Student in an Organized Health Care Education/Training Program; Surgery; ADMIT Urology
PROC: 0BB48ZX Excision of Right Upper Lobe Bronchus, Via Natural or Artificial Opening Endoscopic, Diagnostic (ICD-10-PCS; 2016-10-14)
PROC: 0DNW0ZZ Release Peritoneum, Open Approach (ICD-10-PCS; 2016-10-14)
PROC: 0DBA0ZZ Excision of Jejunum, Open Approach (ICD-10-PCS; 2016-10-14)
PROC: 0BB68ZX Excision of Right Lower Lobe Bronchus, Via Natural or Artificial Opening Endoscopic, Diagnostic (ICD-10-PCS; 2016-10-14)
PROC: 0DTF0ZZ Resection of Right Large Intestine, Open Approach (ICD-10-PCS; 2016-10-14)
PROC: 0BBB8ZX Excision of Left Lower Lobe Bronchus, Via Natural or Artificial Opening Endoscopic, Diagnostic (ICD-10-PCS; 2016-10-14)
PROC: 0BB88ZX Excision of Left Upper Lobe Bronchus, Via Natural or Artificial Opening Endoscopic, Diagnostic (ICD-10-PCS; 2016-10-14)
PROC: 0D1L0Z4 Bypass Transverse Colon to Cutaneous, Open Approach (ICD-10-PCS; 2016-10-14)
PROC: 0DBP0ZZ Excision of Rectum, Open Approach (ICD-10-PCS; 2016-10-14)
PROC: 0BB98ZX Excision of Lingula Bronchus, Via Natural or Artificial Opening Endoscopic, Diagnostic (ICD-10-PCS; 2016-10-14)
PROC: 0BB38ZX Excision of Right Main Bronchus, Via Natural or Artificial Opening Endoscopic, Diagnostic (ICD-10-PCS; 2016-10-14)
PROC: 0BB78ZX Excision of Left Main Bronchus, Via Natural or Artificial Opening Endoscopic, Diagnostic (ICD-10-PCS; 2016-10-14)
PROC: 0BB18ZX Excision of Trachea, Via Natural or Artificial Opening Endoscopic, Diagnostic (ICD-10-PCS; 2016-10-14)
PROC: 0TP98DZ Removal of Intraluminal Device from Ureter, Via Natural or Artificial Opening Endoscopic (ICD-10-PCS; 2016-10-14)
PROC: 0T788DZ Dilation of Bilateral Ureters with Intraluminal Device, Via Natural or Artificial Opening Endoscopic (ICD-10-PCS; 2016-10-14)
PROC: 0BH17EZ Insertion of Endotracheal Airway into Trachea, Via Natural or Artificial Opening (ICD-10-PCS; 2016-10-14)
PROC: 5A1945Z Respiratory Ventilation, 24-96 Consecutive Hours (ICD-10-PCS; 2016-10-14)
PROC: 0BB28ZX Excision of Carina, Via Natural or Artificial Opening Endoscopic, Diagnostic (ICD-10-PCS; principal; 2016-10-14 08:45)
PROC: 0D9670Z Drainage of Stomach with Drainage Device, Via Natural or Artificial Opening (ICD-10-PCS; 2016-10-16)
PROC: 0TP98DZ Removal of Intraluminal Device from Ureter, Via Natural or Artificial Opening Endoscopic (ICD-10-PCS; 2016-10-22)
PROC: 0T788DZ Dilation of Bilateral Ureters with Intraluminal Device, Via Natural or Artificial Opening Endoscopic (ICD-10-PCS; 2016-10-22)
PROC: 0D9W30Z Drainage of Peritoneum with Drainage Device, Percutaneous Approach (ICD-10-PCS; 2016-10-25)
PROC: 0W2GX0Z Change Drainage Device in Peritoneal Cavity, External Approach (ICD-10-PCS; 2016-11-06)
DX: N12 Tubulo-interstitial nephritis, not specified as acute or chronic (principal); J96.01 Acute respiratory failure with hypoxia; J15.5 Pneumonia due to Escherichia coli; A41.9 Sepsis, unspecified organism; B37.0 Candidal stomatitis; K63.2 Fistula of intestine; C18.1 Malignant neoplasm of appendix; C78.6 Secondary malignant neoplasm of retroperitoneum and peritoneum; K56.60 Unspecified intestinal obstruction; J95.4 Chemical pneumonitis due to anesthesia; E46 Unspecified protein-calorie malnutrition; E87.2 Acidosis; D62 Acute posthemorrhagic anemia; J90 Pleural effusion, not elsewhere classified; R00.0 Tachycardia, unspecified; Y83.8 Other surgical procedures as the cause of abnormal reaction of the patient, or of later complication, without mention of misadventure at the time of the procedure; Y92.234 Operating room of hospital as the place of occurrence of the external cause; N13.6 Pyonephrosis; Z68.23 Body mass index [BMI] 23.0-23.9, adult; N18.9 Chronic kidney disease, unspecified; E87.6 Hypokalemia; E87.5 Hyperkalemia; G89.3 Neoplasm related pain (acute) (chronic)

== ENCOUNTER 2016-11-13 07:56 | Outpatient (CLI) | payer MEDICARE ==
[~2016-11-13] VITALS: Ht 165.1 cm; Wt 62.7 kg
--- NOTE | ~2016-11-13 | HEMODYNAMI ---
PATIENT:HERNAN GOLDEN MEDICAL RECORD: [id number] : 85 LOCATION:[facility] ADMISSION DATE: 11/13/16 Generatedon:11/13/201610:49 Patient name: HERNAN GOLDEN Patient #: [id number] SSN: DO B: 1985 Date of study: 11/13/2016 Page: Of Hemodynamic Procedure Report Patient Data Patient Demographics Procedure consent was obtained First Name: HERNAN Gender: Female Last Name: CHANTEL : 1985 Middle Initial: GUSTAVO Age: 31 year(s) Patient #: [id number] Race: Black Additional ID: [id number] Contact details [address]: [address] [place] [address] State: [place] City: [place] Zip code: [address] Admission Admission Data Admission Date: 11/13/2016 Admission Time: 7:56 Procedure Procedure Types Cath Procedure Peripheral Cath Diagnostic Procedure Abscess Abscess Drain Injection Procedure Description Procedure Date Procedure Date: 11/13/2016 Procedure Start Time: 10:33 Procedure Staff Name Function Sang Meneses MD Performing Physician Roxane Sebastian RT Scrub Maikel KRISHNA Monitor Procedure Data Cath Procedure Fluoroscopy Diagnostic fluoroscopy Total fluoroscopy Time: 0.7 time: 0.7 min min Diagnostic fluoroscopy Total fluoroscopy dose: 14 dose: 14 mGy mGy Contrast Material Contrast Material Type Amount (ml) Isovue 300 25 Hemodynamics Rest Pre Cath Intra NCS Post Cath Procedure Log Time Note 9:59:33 Maikel Macias RT (R) (CV) sent for patient. Start room use. 9:59:53 Time tracking: Regular hours 10:00:00 Plan of Care:Hemodynamics will remain stable., Cardiac rhythm will remain stable., Comfort level will be maintained., Respiratory function will remain adequate., Patient/ family verbilizes understanding of procedure., Procedure tolerated without complication., Recovers from procedure without complications.. 10:00:32 Patient received from Outpatients to IR Alert and oriented. Tansferred to table in Supine position. 10:00:34 Signed procedure consent form obtained from patient. 10:00:36 Pre-procedure instructions explained to patient. 10:00:36 Pre-op teaching completed and patient verbalized understanding. 10:00:43 Family in waiting room. 10:00:44 Patient NPO since Midnight. 10:13:57 Left abdomen area was prepped with chlora-prep and draped in sterile fashion 10:13:58 Alarms reviewed by R. N. 10:13:58 Sharps counted by scrub and verified by R.N. 10:14:02 Use device set IR Diagnostic 10:14:03 Bag Decanter opened to sterile field. 10:14:04 Sterile Angiographic Pack opened to sterile field. 10:32:14 Physician arrived 10:32:15 --------ALL STOP TIME OUT------ 10:32:18 Final Timeout: patient, procedure, and site verified with staff and physician. All members of the team are in agreement. 10:32:30 Right abdomen site verified by team. 10:32:37 Sedation plan: IV Moderate Sedation Lidocaine 10:33:31 Procedure started. 10:33:31 Full Disclosure recording started 10:33:40 Local anesthetic to Abdominal area with Lidocaine 1% by Sang Meneses MD.INITIAL ACCESS ONLY 10:40:20 Terumo ANGLE 180L glide wire opened to sterile field. 10:42:16 Procedure ended.(Physican Out) 10:42:45 Fluoroscopy time 00.70 minutes. 10:42:50 Fluoroscopy dose: 14 mGy 10:42:50 Flurop Dose total: 14 10:46:56 Contrast amount:Isovue 300 25ml. 10:46:58 Sharps counted by scrub and verified by R.N. 10:47:00 Insertion/operative site no bleeding no hematoma. 10:47:33 Post-op/insertion site Left Abdominal area dressed using a 4 x 4 and Tegaderm. 10:48:03 Procedure and supply charges have been captured, reviewed, submitted and are correct. 10:48:05 Report given to Outpatients. 10:48:09 Patient transfered to Outpatients with Stretcher. Device Usage Item Name Manufacture Quantity Catalog Hospital Part Current Minimal Lot# / Number Charge Number Stock Stock Serial# Code Bag Decanter Microtek 1 [id number] [employer] Sterile Cardinal 1 [id number] 5 Angiographic Health Pack Terumo ANGLE Terumo 1 [id number] 5 180L glide wire Signature Audit [place] Stage Time Signature Unsigned Intra-Procedure 11/13/2016 Maikel 10:49:35 AM Gilberto RT (R) (CV) Signatures Monitor : Maikel Signature : Gilberto RT Date : Time : [place] [id number] [place] [id number]
[~2016-11-13 07:56] MED LIST changes: +DILAUDID2 MG PO; +MS CONTIN30 MG PO; +PHENERGAN25 M1 PO; +PROTONIX FOR OR40 MG PT
[2016-11-13] MEDS ORDERED: CELEXA20 MG PO (08:30)
[2016-11-13 08:33] VITALS: Ht 165.1 cm; Wt 62.7 kg
[2016-11-13 08:57] LABS: BASOPHILS 0.4 % (0-2); EOSINOPHILS 3.9 % (0-7); HEMATOCRIT 35.2 % (36.0-48.0); HEMOGLOBIN 11.2 g/dL (12-16); IMMATURE GRANULOCYTES 0.3 % (0-5); LYMPHOCYTES 14.3 % (15-50); MCHC 31.8 g/dL (31.0-37.0); MEAN PLATELET VOLUME 9.1 fL (7.4-10.4); MONOCYTES 2.7 % (2-11); NEUTROPHILS 78.4 % (40-80); RDW 15.1 % (11.5-14.5); WBC 15.9 10x3/uL (4.8-10.8)
[2016-11-13 09:03] LABS: PLATELET COUNT 568 10x3/uL (130-400)
[2016-11-13 09:10] LABS: ANION GAP 18.4 mmol/L (8-16); CALCIUM 10.5 mg/dL (8.5-10.1); CREATININE - SERUM 1.2 mg/dL (0.6-1.3); POTASSIUM - SERUM 3.4 mmol/L (3.5-5.1)
[2016-11-13 09:11] LABS: APTT 42.1 SECONDS (22.8-39.4); INR 1.15 (0.85-1.17); PROTIME 14.6 SECONDS (11.6-15.0)
--- NOTE | 2016-11-13 14:06 | NUR ---
1130--IV DC'D. MINO WALKER 1145--DISCHARGE INSTRUCTIONS GIVEN, PT VERBALIZES UNDERSTANDING. PT OFF UNIT VIA WC. MINO WALKER
== END 2016-11-13 11:45 | disposition home or self-care (01) ==
LOC: D.OPS 07:56 → D.CT 08:30 → D.RAD 09:00 → D.OPS 11:45
PROVIDERS: General Practice
DX: K65.1 Peritoneal abscess (principal); Z01.812 Encounter for preprocedural laboratory examination

== ENCOUNTER 2016-11-27 13:28 | Inpatient (IN) | payer MEDICARE ==
[2016-11-27] VITALS (12 sets, daily range): BP systolic 96–119; BP diastolic 74–93; BMI 22.5
--- NOTE | 2016-11-27 13:00 | NUR ---
ADMIT TO ICU. MOTHER AT BEDSIDE.
[~2016-11-27 13:28] MED LIST changes: +CELEXA20 MG PO
[2016-11-27 14:42] LABS: BASOPHILS 0.1 % (0-2); EOSINOPHILS 0.1 % (0-7); HEMATOCRIT 38.4 % (36.0-48.0); HEMOGLOBIN 13.1 g/dL (12-16); IMMATURE GRANULOCYTES 0.2 % (0-5); LYMPHOCYTES 18.9 % (15-50); MCH 28.1 pg (26.0-34.0); MCHC 34.1 g/dL (31.0-37.0); MCV 82.4 fL (80.0-100.0); MEAN PLATELET VOLUME 10.5 fL (7.4-10.4); MONOCYTES 8.8 % (2-11); NEUTROPHILS 71.9 % (40-80); RBC 4.66 10x6/uL (4.00-5.40); RDW 14.5 % (11.5-14.5); WBC 9.6 10x3/uL (4.8-10.8)
[2016-11-27 14:46] LABS: PLATELET COUNT 249 10x3/uL (130-400)
--- NOTE | 2016-11-27 15:00 | NUR ---
SLEEPING NO DISTRESS NOTED. SR UP X 2. MOTHER AT BEDSIDE.
[2016-11-27 15:08] LABS: ALBUMIN 3.4 g/dL (3.4-5.0); ANION GAP 21.2 mmol/L (8-16); BILIRUBIN - TOTAL 1.67 mg/dL (0.2-1.3); CALCIUM 8.3 mg/dL (8.5-10.1); CARBON DIOXIDE 16.5 mmol/L (21.0-32.0); MAGNESIUM - SERUM 2.3 mg/dL (1.8-2.4); PHOSPHOROUS 5.7 mg/dL (2.5-4.9); PROTEIN - SERUM 8.4 g/dL (6.4-8.2)
[2016-11-27 15:23] LABS: POTASSIUM - SERUM 2.7 mmol/L (3.5-5.1)
--- NOTE | 2016-11-27 19:00 | NUR ---
K COMPLETED WILL REDRAW K AT 2100.
--- NOTE | 2016-11-27 19:30 | NUR ---
REPORT RECIEVED. ASSESSMENT COMPLETE PER FLOW SHEET. REFER FOR FINDINGS. VSS. REPOSITIONED ON R SIDE FOR COMFORT. GIVEN ICE WATER PER REQUEST DENIES FURTHER NEEDS.
--- NOTE | 2016-11-27 20:30 | NUR ---
DR MONAHAN AT BEDSIDE. DNR ORDER RECIEVED.
--- NOTE | 2016-11-27 21:00 | NUR ---
2100 MEDS ADM WITHOUT DIFFICULTY VSS NO NEW CHANGES AT THIS TIME. RESTING COMFORTABLY. WILL CONTINUE TO MONITOR
[2016-11-28] VITALS (24 sets, daily range): BP systolic 98–124; BP diastolic 70–92; BMI 23.6
--- NOTE | 2016-11-28 01:04 | NUR ---
PT SLEEPING COMFORTABLY. VSS. NO NEW CHANGES. WILL CONTINUE TO MONITOR
--- NOTE | 2016-11-28 03:12 | NUR ---
REASSESSMENT COMPLETE PER FLOW SHEET. VSS. NO NEW CHANGES. WILL CONTINUE TO MONITOR
[2016-11-28 03:56] LABS: BASOPHILS 0.1 % (0-2); HEMATOCRIT 34.8 % (36.0-48.0); HEMOGLOBIN 11.7 g/dL (12-16); IMMATURE GRANULOCYTES 0.1 % (0-5); LYMPHOCYTES 19.1 % (15-50); MCH 28.1 pg (26.0-34.0); MCHC 33.6 g/dL (31.0-37.0); MCV 83.7 fL (80.0-100.0); MEAN PLATELET VOLUME 10.2 fL (7.4-10.4); MONOCYTES 10.7 % (2-11); PLATELET COUNT 238 10x3/uL (130-400); RBC 4.16 10x6/uL (4.00-5.40); RDW 14.5 % (11.5-14.5)
[2016-11-28 04:06] LABS: ALBUMIN 3.1 g/dL (3.4-5.0); ANION GAP 19.7 mmol/L (8-16); BILIRUBIN - TOTAL 0.94 mg/dL (0.2-1.3); CALCIUM 8.4 mg/dL (8.5-10.1); CARBON DIOXIDE 16.1 mmol/L (21.0-32.0); CREATININE - SERUM 2.4 mg/dL (0.6-1.3); MAGNESIUM - SERUM 2.1 mg/dL (1.8-2.4); POTASSIUM - SERUM 3.8 mmol/L (3.5-5.1); PROTEIN - SERUM 7.5 g/dL (6.4-8.2)
--- NOTE | 2016-11-28 07:00 | NUR ---
ASSESSMENT COMPLETE PER FLOWSHEET. VOICES NO CO AT TIME.
--- NOTE | 2016-11-28 09:00 | NUR ---
UP IN CHAIR. COLOSTOMY LEAKING. BATH GIVEN PER MOM. BACK TO BED TO CHANGE COLOSTOMY.
--- NOTE | 2016-11-28 12:00 | NUR ---
EATING CLEAR LIQUID. VOICES NO CO AT TIME.
--- NOTE | 2016-11-28 15:00 | NUR ---
VISITING WITH FAMILY NO CO AT TIME.
[2016-11-28 17:22] LABS: CALCIUM 8.2 mg/dL (8.5-10.1); CREATININE - SERUM 1.9 mg/dL (0.6-1.3)
--- NOTE | 2016-11-28 18:00 | NUR ---
SLEEPING NO DISTRESS NOTED. SR UP X 2. CALL LIGHT WITHIN REACH.
--- NOTE | 2016-11-28 19:30 | NUR ---
REPORT RECEIVED. ASSESSMENT COMPLETE PER FLOW SHEET. GIVEN BLANKET AND ICE WATER PER REQUEST. DENIES FURTHER NEEDS. WILL CONTINUE TO MONITOR
--- NOTE | 2016-11-28 23:00 | NUR ---
REASSESSMENT COMPLETE PER FLOW SHEET. VSS. NO NEW CHANGES. WILL CONTINUE LIZ ONITOR
[2016-11-29] VITALS (22 sets, daily range): BP systolic 99–118; BP diastolic 66–90
--- NOTE | 2016-11-29 01:38 | NUR ---
PT SLEEPING COMFORTABLY. WILL CONTINUE TO MONITOR
--- NOTE | 2016-11-29 03:30 | NUR ---
REASSESSMENT COMPLETE PER FLOW SHEET.VSS. NO NEW CHANGES. WILL CONTINUE TO MONTIOR
[2016-11-29 03:45] LABS: BASOPHILS 0.5 % (0-2); EOSINOPHILS 5.9 % (0-7); HEMATOCRIT 29.7 % (36.0-48.0); IMMATURE GRANULOCYTES 0.2 % (0-5); LYMPHOCYTES 20.8 % (15-50); MCH 28.2 pg (26.0-34.0); MCHC 33.7 g/dL (31.0-37.0); MCV 83.9 fL (80.0-100.0); MEAN PLATELET VOLUME 10.2 fL (7.4-10.4); MONOCYTES 8.4 % (2-11); NEUTROPHILS 64.2 % (40-80); PLATELET COUNT 235 10x3/uL (130-400); RBC 3.54 10x6/uL (4.00-5.40); RDW 14.6 % (11.5-14.5); WBC 6.3 10x3/uL (4.8-10.8)
[2016-11-29 03:59] LABS: ALBUMIN 2.8 g/dL (3.4-5.0); ANION GAP 15.5 mmol/L (8-16); BILIRUBIN - TOTAL 0.63 mg/dL (0.2-1.3); CALCIUM 8.1 mg/dL (8.5-10.1); CARBON DIOXIDE 16.4 mmol/L (21.0-32.0); CREATININE - SERUM 1.7 mg/dL (0.6-1.3); MAGNESIUM - SERUM 1.7 mg/dL (1.8-2.4); PHOSPHOROUS 2.5 mg/dL (2.5-4.9); POTASSIUM - SERUM 2.9 mmol/L (3.5-5.1); PROTEIN - SERUM 6.7 g/dL (6.4-8.2)
--- NOTE | 2016-11-29 07:00 | NUR ---
REC'D REPORT AND RESUMED CARE, AAO, VSS, C/O PAIN 06/10, GIVEN DILAUDID 2 MG 30 MIN AGO, O2 VIA RA, ASSESSMENT COMPLETE PER FLOWSHEET, MOTHER AT BEDSIDE, CALL LIGHT IN REACH VOICES NO OTHER NEEDS AT THIS TIME
--- NOTE | 2016-11-29 07:30 | NUR ---
CALLED TO BEDSIDE, WATER, FRUIT PUNCH, CEREAL, AND APPLE JUICE REQUESTED, PATIENT REGULAR FOOD TRAY GIVEN TO MOM,
--- NOTE | 2016-11-29 09:00 | NUR ---
AM MEDS GIVEN WITHOUT DIFFICULTY, PO POTASSIUM CHANGED TO IV 40 MEQ X2
--- NOTE | 2016-11-29 09:45 | NUR ---
ONOCOLGY WASH 5 ML GIVEN FOR SORE THROAT
--- NOTE | 2016-11-29 11:00 | NUR ---
NO ACUTE CHANGE FROM PREVIOUS, VSS, CALL LIGHT IN REACH, MOTHER AT BEDSIDE
--- NOTE | 2016-11-29 11:31 | NUR ---
* Is the patient Alert and Oriented? Yes 0 * How many steps to enter\exit or inside your home? 5 0 * PCP Dr. Horton 0 * Pharmacy [facility] in [place] 0 * Preadmission Environment Home with Family 0 * ADLs Partial Dependent 0 * Partial ADLs (Assistance needed) Bathing Dressing 0 * Equipment None 0 * List name and contact numbers for known caregivers / representatives who currently or will assist patient after discharge: Mother - Charity Shipley [phone] 0 * Community resources currently utilized Home Health 0 * Please name any agencies selected above. [facility] 0 * Additional services required to return to the preadmission environment? No 0 * Can the patient safely return to the preadmission environment? Yes 0 * Has this patient been hospitalized within the prior 30 days at any hospital? Yes Patient Name: HERNAN SHIPLEY Admission Status: Elective Accout number: [id number] Admission Date: 11-27-2016 : 1985 Admission Diagnosis:ACUTE KIDNEY FAILURE, UNSPECIFIED Attending: MIGUEL HORTON Current LOS: 2 Planned Disposition: Home with Home Health Primary Insurance: [facility] Discharge Planning Comments: CM met with patient to assess dc plans/needs. Patient states she lives with her mother. She reports she requires some assistance with ADL's, but does not use any assistive devices. She is current with [facility] & wants to resume their services at discharge. CM will follow & assist as needed. Recreation Superintendent: Beth Marques
--- NOTE | 2016-11-29 12:00 | NUR ---
LUNCH TRAY TO BEDSIDE, INDEPENDENT WITH SET UP AND EATING
--- NOTE | 2016-11-29 14:11 | NUR ---
AMBULATED TO PT, 250 FEET, TOLERATED WITHTOUT DIFFICULTY
--- NOTE | 2016-11-29 15:00 | NUR ---
NO ACUTE CHANGE FROM PREVIOUS ASSESSMENT, VSS, WILL CONTINUE WITH POC
--- NOTE | 2016-11-29 18:00 | NUR ---
RESTING WITH NO SIGNS OF DISTRESS, VSS, C/O PAIN 8/10 IN ABDOMEN AND NAUSEA, MEDS PER MAR GIVEN
--- NOTE | 2016-11-29 19:15 | NUR ---
RECEIVED CARE OF PT, ASSESSMENT PER FLOWSHEET. PT ALERT AND ORIENTED SITTING UP IN BED, HR ST ON CM, PPP, ABDOMINAL DRESSING CDI, ILEOSTOMY INTACT WITH DARK GREEN-BROWN DRAINAGE IN BAG, GERMAN CATH PATENT WITH DARK URINE IN TUBING, PT MOTHER AT BEDSIDE, ASSISTED TO MORE COMFORTABLE POSITION, WILL MONITOR.
--- NOTE | 2016-11-29 21:00 | NUR ---
DR FENG PAGED PER PT REQUEST FOR BENADRYL FOR SLEEP, ORDER RECEIVED.
--- NOTE | 2016-11-29 21:18 | NUR ---
HS MEDS ADMINISTERED PER ORDERS ALONG WITH 25MG PRN BENADRYL FOR SLEEP PER PT REQUEST.
[2016-11-29 22:22] LABS: ANION GAP 16.6 mmol/L (8-16); CARBON DIOXIDE 15.1 mmol/L (21.0-32.0); CREATININE - SERUM 1.6 mg/dL (0.6-1.3)
[2016-11-29 22:23] LABS: POTASSIUM - SERUM 3.7 mmol/L (3.5-5.1)
--- NOTE | 2016-11-29 23:10 | NUR ---
REASSESSMENT PER FLOWSHEET. NO ACUTE CHANGES NOTED AT THIS TIME, ASSISTED PT TO EMPTY ILEOSTOMY BAG-YIELDED 105CC.
[2016-11-30] VITALS (19 sets, daily range): BP systolic 90–127; BP diastolic 63–95
--- NOTE | 2016-11-30 01:07 | NUR ---
PRN DILAUDID 2MG ADMINISTERED VIA SIVP PER PT C/O ABDOMINAL PAIN, WILL MONITOR FOR DESIRED EFFECT. PT MOTHER REMAINS AT BEDSIDE, VSS
--- NOTE | 2016-11-30 03:30 | NUR ---
REASSESSMENT PER FLOWSHEET, NO ACUTE CHANGES NOTED. ASSISTED PT TO SIDE POSITION SUPPORTED WITH PILLOW, DENIES ANY OTHER NEEDS, VSS.
[2016-11-30 04:12] LABS: BASOPHILS 0.7 % (0-2); EOSINOPHILS 5.2 % (0-7); HEMATOCRIT 28.6 % (36.0-48.0); HEMOGLOBIN 9.6 g/dL (12-16); IMMATURE GRANULOCYTES 0.2 % (0-5); LYMPHOCYTES 18.7 % (15-50); MCH 28.4 pg (26.0-34.0); MCHC 33.6 g/dL (31.0-37.0); MCV 84.6 fL (80.0-100.0); MEAN PLATELET VOLUME 9.8 fL (7.4-10.4); MONOCYTES 9.7 % (2-11); NEUTROPHILS 65.5 % (40-80); PLATELET COUNT 266 10x3/uL (130-400); RBC 3.38 10x6/uL (4.00-5.40)
[2016-11-30 04:31] LABS: ALBUMIN 2.7 g/dL (3.4-5.0); ANION GAP 17.3 mmol/L (8-16); BILIRUBIN - TOTAL 0.52 mg/dL (0.2-1.3); CALCIUM 7.9 mg/dL (8.5-10.1); CARBON DIOXIDE 14.3 mmol/L (21.0-32.0); CREATININE - SERUM 1.6 mg/dL (0.6-1.3); POTASSIUM - SERUM 3.6 mmol/L (3.5-5.1); PROTEIN - SERUM 6.8 g/dL (6.4-8.2)
--- NOTE | 2016-11-30 05:10 | NUR ---
PT RESTING IN BED WITH EYES CLOSED, MOTHER AT BEDSIDE, VSS, CONT TO MONITOR.
--- NOTE | 2016-11-30 06:35 | NUR ---
EMPTIED 425CC OF BROWNISH-GREEN DRAINAGE FROM ILEOSTOMY.
--- NOTE | 2016-11-30 07:46 | NUR ---
LYING IN BED RESTING AT THIS TIME. RESPIRATIONS STEADY AND UNLABORED. AWAKENS EASILY WHEN SPOKEN TO. NO ACUTE DISTRESS NOTED. WILL CONTINUE PLAN OF CARE.
[2016-11-30 09:39] LABS: APPEARANCE TURBID (CLEAR); BILIRUBIN NEGATIVE (NEGATIVE); COLOR BROWN (YELLOW); GLUCOSE NEGATIVE (NEGATIVE); KETONE NEGATIVE (NEGATIVE); NITRITE NEGATIVE (NEGATIVE); PROTEIN 2+ mg/dL (NEGATIVE); SPECIFIC GRAVITY 1.015 (1.005-1.020); UROBILINOGEN NORMAL (NORMAL)
[2016-11-30 09:42] LABS: AMORPHOUS SEDIMENT >1+ /lpf (NONE SEEN); BACTERIA MANY /hpf (NONE SEEN); EPITHELIAL CELLS 0-5 /hpf (0-5); GRANULAR CAST 0-5 /lpf (NONE SEEN); HYALINE CAST 0-5 /lpf (NONE SEEN); RED CELLS - URINE >50 /hpf (0-5); WHITE CELLS - URINE >50 /hpf (0-5)
--- NOTE | 2016-11-30 09:45 | NUR ---
UP IN CHAIR BESIDE BED EATING BREAKFAST AT THIS TIME. DENIES ANY NEEDS. NO ACUTE DISTRESS NOTED. WILL CONTINUE PLAN OF CARE.
--- NOTE | 2016-11-30 11:12 | NUR ---
ILEOSTOMY EMPTIED AT THIS TIME, 125ML LIQUID WITH SOME SMALL SOLID PICES OF DARK GREEN COLORED STOOL. NO ACUTE DISTRESS NOTED. WILL CONTINUE PLAN OF CARE.
--- NOTE | 2016-11-30 13:55 | NUR ---
UP IN BED EATING LUNCH AT THIS TIME, FAMILY AY BEDSIDE VISITING WITH PT. NO ACUTE DISTRESS NOTED. WILL CONTINUE PLAN OF CARE.
--- NOTE | 2016-11-30 15:03 | NUR ---
ILEOSTOMY EMPTIED AT THIS TIME 850ML APPROX OF LIQUID DARK GREEN STOOL WITH SMALL LOOSE CHUNKS. NO ACUTE DISTRESS NOTED. PT UP IN BED VISITING WITH MOTHER AND WATCHING TV. WILL CONTINUE PLAN OF CARE.
--- NOTE | 2016-11-30 17:02 | NUR ---
UP IN BED EATING SUPPER AT THIS TIME AND WATCHING TV. NO ACUTE DISTRESS NOTED. PT DENIES ANY NEEDS. WILL CONTINUE PLAN OF CARE.
--- NOTE | 2016-11-30 18:03 | NUR ---
GERMAN DC AT THIS TIME PER PT REQUEST. CATHETER TIP INTACT. URINE NOTED CLEAR YELLOW BEFORE DC OF GERMAN.
--- NOTE | 2016-11-30 18:04 | NUR ---
NOTED PT TO TRANSFER TO ROOM 2240. REPORT CALLED TO BRANNON. WILL TRANSFER PT SHORTLY.
--- NOTE | 2016-11-30 18:35 | NUR ---
TRANSFERRED TO 2240 AT THIS TIME VIA WHEELCHAIR ACCOMPANIED BY HOSPITAL STAFF AND MOTHER. TRANSFERRED WITH ALL PERSONAL ITEMS. NO ACUTE DISTRESS NOTED. NO FURTHER ACTIONS.
--- NOTE | 2016-11-30 18:35 | NUR ---
PT TRANSPORTED TO FLOOR FROM ICU, RESUMED CARE OF PT. NO COMPLAINTS AT THIS TIME.
--- NOTE | 2016-11-30 19:35 | NUR ---
PATIENT RESTING IN BED WITH MOM AT BEDSIDE. PATIENT REQUESTED PAIN MEDS FOR PAIN. PATIENT DENIES OTHER NEEDS AT THIS TIME. BED IN LOWEST POSITION AND CALL LIGHT WITHIN REACH. ENCOURAGED THE PT TO CALL IF SHE HAS NEEDS.
[2016-12-01] VITALS (16 sets, daily range): BP systolic 91–127; BP diastolic 55–87
[2016-12-01 06:21] LABS: BASOPHILS 0.5 % (0-2); EOSINOPHILS 4.7 % (0-7); HEMATOCRIT 25.4 % (36.0-48.0); HEMOGLOBIN 8.6 g/dL (12-16); IMMATURE GRANULOCYTES 0.3 % (0-5); LYMPHOCYTES 19.9 % (15-50); MCH 28.6 pg (26.0-34.0); MCHC 33.9 g/dL (31.0-37.0); MCV 84.4 fL (80.0-100.0); MEAN PLATELET VOLUME 9.5 fL (7.4-10.4); MONOCYTES 12.8 % (2-11); NEUTROPHILS 61.8 % (40-80); PLATELET COUNT 271 10x3/uL (130-400); RBC 3.01 10x6/uL (4.00-5.40); WBC 5.9 10x3/uL (4.8-10.8)
[2016-12-01 06:43] LABS: ALBUMIN 2.3 g/dL (3.4-5.0); ANION GAP 12.8 mmol/L (8-16); BILIRUBIN - TOTAL 0.43 mg/dL (0.2-1.3); CALCIUM 7.9 mg/dL (8.5-10.1); CREATININE - SERUM 1.4 mg/dL (0.6-1.3); POTASSIUM - SERUM 3.1 mmol/L (3.5-5.1); PROTEIN - SERUM 5.8 g/dL (6.4-8.2)
[2016-12-01 06:48] LABS: CARBON DIOXIDE 21.3 mmol/L (21.0-32.0)
--- NOTE | 2016-12-01 14:00 | NUR ---
BLOOD STARTED, DENIES NEEDS, WILL CONTINUE TO MONITOR
--- NOTE | 2016-12-01 19:35 | NUR ---
PATIENT RESTING IN BED WITH GUEST AT BEDSIDE AND NO VISIBLE SIGNS OF DISTRESS. BED IN LOWEST POSITION AND CALL LIGHT WITHIN REACH. ENCOURAGED THE PATIENT TO CALL WITH NEEDS.
[2016-12-02] VITALS: BP 124/80
[2016-12-02 04:00] VITALS: BP 114/69
[2016-12-02 06:10] LABS: BASOPHILS 0.6 % (0-2); IMMATURE GRANULOCYTES 0.2 % (0-5); LYMPHOCYTES 29.3 % (15-50); MCH 29.5 pg (26.0-34.0); MCV 84.2 fL (80.0-100.0); MEAN PLATELET VOLUME 9.2 fL (7.4-10.4); MONOCYTES 19.5 % (2-11); NEUTROPHILS 46.4 % (40-80); PLATELET COUNT 239 10x3/uL (130-400); RDW 14.6 % (11.5-14.5); WBC 6.3 10x3/uL (4.8-10.8)
[2016-12-02 06:11] LABS: HEMATOCRIT 32.6 % (36.0-48.0); HEMOGLOBIN 11.4 g/dL (12-16); RBC 3.87 10x6/uL (4.00-5.40)
[2016-12-02 06:24] LABS: ALBUMIN 2.3 g/dL (3.4-5.0); BILIRUBIN - TOTAL 0.65 mg/dL (0.2-1.3); CALCIUM 7.3 mg/dL (8.5-10.1); CREATININE - SERUM 1.2 mg/dL (0.6-1.3); PROTEIN - SERUM 5.7 g/dL (6.4-8.2)
[2016-12-02 06:31] LABS: ANION GAP 11.8 mmol/L (8-16); CARBON DIOXIDE 27.2 mmol/L (21.0-32.0)
[2016-12-02 08:35] VITALS: BP 115/75
[2016-12-02 12:29] VITALS: BP 126/90
--- NOTE | 2016-12-02 13:52 | NUR ---
PT RATED PAIN 7/10 ON HER ABDOMEN. DILAUDID 2MG IV GIVEN. PT AMBULATED TO BATHROOM. NO OTHER NEEDS AT THIS TIME.
[2016-12-02 14:55] LABS: APPEARANCE HAZY (CLEAR); BILIRUBIN NEGATIVE (NEGATIVE); COLOR YELLOW (YELLOW); GLUCOSE 50 mg/dL (NEGATIVE); KETONE SMALL mg/dL (NEGATIVE); NITRITE NEGATIVE (NEGATIVE); PROTEIN 1+ mg/dL (NEGATIVE); UROBILINOGEN NORMAL (NORMAL)
[2016-12-02 14:56] LABS: BACTERIA MODERATE /hpf (NONE SEEN); EPITHELIAL CELLS OCC /hpf (0-5); RED CELLS - URINE >50 /hpf (0-5); WHITE CELLS - URINE 25-50 /hpf (0-5)
[2016-12-02 16:16] VITALS: BP 128/84
[2016-12-02 20:00] VITALS: BP 131/88
--- NOTE | 2016-12-02 21:03 | NUR ---
SHIFT ASSESSMENT COMPLETED. PT REQUESTING DILAUDID AND ER MS CONTIN AT THIS TIME. INSTRUCTED PT THAT I COULD NOT GIVE BOTH MEDICATIONS AT THE SAME TIME. INSTRUCTED PT THAT MS CONTIN IS SCHEDULED AND WE WOULD HAVE TO WAIT AN HOUR BEFORE ADMINISTERING DILAUDID. PT STATES THAT EVERY OTHER NURSE HAS GIVEN THEM TOGETHER. INSTRUCTED PT THAT POLICY STATES NOT TO GIVE MEDICATION TOGETHER. CALL WAS PLACED TO PHARMACY AND THEY STATED TO GIVE THE DILAUDID AND WAIT AN HOUR TO GIVE THE ER MS CONTIN.
[2016-12-03] VITALS: BP 126/85
[2016-12-03 05:39] VITALS: BP 116/83
[2016-12-03 05:51] LABS: HEMOGLOBIN 11.2 g/dL (12-16); MCH 28.9 pg (26.0-34.0); MCHC 33.9 g/dL (31.0-37.0); MCV 85.3 fL (80.0-100.0); MEAN PLATELET VOLUME 9.4 fL (7.4-10.4); PLATELET COUNT 268 10x3/uL (130-400); RBC 3.87 10x6/uL (4.00-5.40); WBC 5.5 10x3/uL (4.8-10.8)
[2016-12-03 06:05] LABS: ALBUMIN 2.3 g/dL (3.4-5.0); ANION GAP 9.4 mmol/L (8-16); BILIRUBIN - TOTAL 0.52 mg/dL (0.2-1.3); CALCIUM 7.7 mg/dL (8.5-10.1); CARBON DIOXIDE 28.7 mmol/L (21.0-32.0); CREATININE - SERUM 1.1 mg/dL (0.6-1.3); MAGNESIUM - SERUM 1.1 mg/dL (1.8-2.4); POTASSIUM - SERUM 3.1 mmol/L (3.5-5.1); PROTEIN - SERUM 5.8 g/dL (6.4-8.2)
[2016-12-03 07:00] LABS: EOSINOPHILS 2 % (0-7); LYMPHOCYTES 37 % (15-50); MONOCYTES 19 % (2-11); NEUTROPHILS 39 % (40-80); PLATELET ESTIMATE NORMAL
--- NOTE | 2016-12-03 08:21 | NUR ---
PT AWAKE ALERT AND ORIENTED. RATED PAIN 8/10 ON ABDOMEN, CONSTANT AND ACHING. DILAUDID 2MG GIVEN IV ON L-PORT. PT DENIES OTHER NEEDS AT THIS TIME. WILL CONTINUE TO MONITOR.
[2016-12-03 08:52] VITALS: BP 122/87
[2016-12-03 12:52] VITALS: BP 127/85
--- NOTE | 2016-12-03 15:16 | NUR ---
NUTRITION F/U CHART REVIEWED, PT VISIT. PT REPORTS TOLERATING REG DIET WITH GOOD PO INTAKE. WILL CONTINUE TO PROVIDE DIET, HONOR FOOD PREFERERENCES, MONITOR PO INTAKE. RD FOLLOWING
[2016-12-03 16:38] VITALS: BP 139/85
--- NOTE | 2016-12-03 18:00 | NUR ---
PT RESTING COFORTABLY. DENIES ANY NEEDS AT THIS TIME.
--- NOTE | 2016-12-03 19:35 | NUR ---
RECIEVED SHIFT REPORT. PT IS LYING IN BED. ALERT AND ORIENTED AND ABLE TO VERBALIZE NEEDS. IV IS PATENT AND FLUIDS ARE RUNNING PER ORDER. PT IS AMBULATORY BUT WAS INSTRUCTED TO CALL FOR ANY ASSISTANCE NEEDED. ILEOSTOMY NOTED TO RIGHT ABDOMEN. PT STATES PAIN IS 8/10. NO NEEDS ARE VERBALIZED AT THIS TIME. WILL CONTINUE TO MONITOR. SIDE RAILS ARE UP X 2. BED IS IN LOWEST POSITION. CALL LIGHT IS WITHIN REACH.
[2016-12-03 20:00] VITALS: BP 129/91
--- NOTE | 2016-12-03 21:03 | NUR ---
SHIFT ASSESSMENT COMPLETED. NIGHT MEDS GIVEN WITH NO PROBLEMS. NO NEEDS ARE VOICED. WILL MONITOR. SIDE RAILS X 2. BED LOW. CALL LIGHT IN REACH.
[2016-12-04 04:00] VITALS: BP 116/74
--- NOTE | 2016-12-04 05:09 | NUR ---
PT ASKED AT THIS TIME IF SHE HAD EMPTIED HER ILEOSTOMY. PT STATES SHE HAD BUT DOES NOT REMEMBER HOW MUCH SHE EMPTIED OUT.
[2016-12-04 05:55] LABS: BASOPHILS 0.8 % (0-2); EOSINOPHILS 3.5 % (0-7); HEMATOCRIT 34.5 % (36.0-48.0); HEMOGLOBIN 11.7 g/dL (12-16); IMMATURE GRANULOCYTES 0.2 % (0-5); LYMPHOCYTES 25.9 % (15-50); MCH 29.6 pg (26.0-34.0); MCHC 33.9 g/dL (31.0-37.0); MEAN PLATELET VOLUME 9.4 fL (7.4-10.4); MONOCYTES 29.1 % (2-11); NEUTROPHILS 40.5 % (40-80); PLATELET COUNT 267 10x3/uL (130-400); RBC 3.95 10x6/uL (4.00-5.40); RDW 15.7 % (11.5-14.5); WBC 6.2 10x3/uL (4.8-10.8)
[2016-12-04 06:02] LABS: MCV 87.3 fL (80.0-100.0)
--- NOTE | 2016-12-04 06:46 | NUR ---
PT MOM TO INFORM ME THAT SHE EMPTIED 350ML FROM ILEOSTOMY.
[2016-12-04 06:55] LABS: ALBUMIN 2.4 g/dL (3.4-5.0); ANION GAP 11.4 mmol/L (8-16); BILIRUBIN - TOTAL 0.5 mg/dL (0.2-1.3); CALCIUM 8.3 mg/dL (8.5-10.1); CARBON DIOXIDE 27.4 mmol/L (21.0-32.0); CREATININE - SERUM 1.1 mg/dL (0.6-1.3); PROTEIN - SERUM 5.9 g/dL (6.4-8.2)
[2016-12-04 07:01] LABS: MAGNESIUM - SERUM 1.9 mg/dL (1.8-2.4); PHOSPHOROUS 3.1 mg/dL (2.5-4.9); POTASSIUM - SERUM 3.8 mmol/L (3.5-5.1)
[2016-12-04 08:54] VITALS: BP 121/89
--- NOTE | 2016-12-04 14:54 | NUR ---
ILEOSTOMY BAG TRICIA PER PT.
[2016-12-04 17:34] VITALS: BP 126/84
--- NOTE | 2016-12-04 18:14 | NUR ---
REMAINS WITHOUT CHANGE FROM INITIAL ASSESSMENT.CONT PLAN OF CARE
[2016-12-04 20:00] VITALS: BP 125/85
--- NOTE | 2016-12-04 22:26 | NUR ---
REC'D SITTING UP IN BED. ALERT AND ORIENTED X4. REPORTED PAIN 8/10, WILL ADMIN PAIN MEDS PRESCRIBED. DENIED FURTHER NEEDS AT THIS TIME. INSTRUCTED TO CALL IF NEEDED ANYTHING, VERBLAIZED UNDERSTANDING. MOTHER IS AT BEDSIDE. NO DISTRESS NOTED. WILL CONT TO MONITOR. BED LOW, LOCKED, CALL LIGHT IN REACH.
[2016-12-05] VITALS (10 sets, daily range): BP systolic 110–136; BP diastolic 70–96
--- NOTE | 2016-12-05 02:00 | NUR ---
PT IN BED WITH NO DISTRESS. RESPIRATIONS EVEN AND UNLABORED. MOM AT BEDSIDE. SIDE RAILS X 2. BED LOW. CALL LIGHT IN REACH.
[2016-12-05 06:18] LABS: BASOPHILS 0.7 % (0-2); EOSINOPHILS 3.7 % (0-7); HEMATOCRIT 34.8 % (36.0-48.0); HEMOGLOBIN 11.4 g/dL (12-16); IMMATURE GRANULOCYTES 0.1 % (0-5); LYMPHOCYTES 27.4 % (15-50); MCHC 32.8 g/dL (31.0-37.0); MCV 88.5 fL (80.0-100.0); MEAN PLATELET VOLUME 9.4 fL (7.4-10.4); MONOCYTES 23.6 % (2-11); NEUTROPHILS 44.5 % (40-80); PLATELET COUNT 274 10x3/uL (130-400); RBC 3.93 10x6/uL (4.00-5.40); RDW 16.1 % (11.5-14.5); WBC 7.1 10x3/uL (4.8-10.8)
[2016-12-05 06:37] LABS: ALBUMIN 2.1 g/dL (3.4-5.0); ANION GAP 10.4 mmol/L (8-16); BILIRUBIN - TOTAL 0.35 mg/dL (0.2-1.3); CALCIUM 7.8 mg/dL (8.5-10.1); CARBON DIOXIDE 26.9 mmol/L (21.0-32.0); CREATININE - SERUM 1.1 mg/dL (0.6-1.3); PHOSPHOROUS 2.7 mg/dL (2.5-4.9); POTASSIUM - SERUM 3.3 mmol/L (3.5-5.1); PROTEIN - SERUM 5.9 g/dL (6.4-8.2)
--- NOTE | 2016-12-05 08:00 | NUR ---
ASSESSMENT PER FLOW SHEET.PT WITHOUT DISTRESS.DENIES NEEDS.FAMILY AT SIDE.CALL LIGHT IN REACH.
--- NOTE | 2016-12-05 15:45 | NUR ---
CHEMO STARTED ORDERED SEE MAR
--- NOTE | 2016-12-05 18:30 | NUR ---
REMAINS WITHOUT DISTRESS.TOLERATING CHEMO WITHOUT REACTIONS. CONT PLAN OF CARE
[2016-12-06 01:23] VITALS: BP 142/88
--- NOTE | 2016-12-06 02:09 | NUR ---
ASSESSED AT THE BEGINNING OF THE SHIFT. PT IS ALERT AND ORIENTED, ABLE TO VERBALIZE NEEDS. HER MOTHER HAS REMAINED IN THE ROOM WITH HER ALL THE TIME. WE DID VITAL SIGNS EVERY HOUR UNTIL MIDNIGHT AT WHICH TIME SHE WANTED TO SLEEP AND TOOK OFF HER BP CUFF. I WAS STILL ABLE TO CHECH HER PORT WHILE SHE WAS ASLEEP PER PROTOCOL FOR GOOD BLOOD RETURN. SHE IS ASLEEP AT THIS TIME AND THERE HAS BEEN NO PROBLEMS WITH BLOOD RETURN. SHE IS ABLE TO GET UP TO THE BATHROOM AD SYDNEY AND HER OSTOMY IS SECURE . THE BED IS LOW, RAILS UP X'S 2 WITH THE CALL LIGHT AT HAND.
--- NOTE | 2016-12-06 06:05 | NUR ---
GOOD BLOOD RETURN EACH TIME CHECKED.
[2016-12-06 06:42] VITALS: BP 117/76
[2016-12-06 06:42] LABS: BASOPHILS 0.3 % (0-2); EOSINOPHILS 0.3 % (0-7); HEMATOCRIT 34.7 % (36.0-48.0); HEMOGLOBIN 11.6 g/dL (12-16); IMMATURE GRANULOCYTES 0.1 % (0-5); MCH 29.1 pg (26.0-34.0); MCHC 33.4 g/dL (31.0-37.0); MCV 87.2 fL (80.0-100.0); MEAN PLATELET VOLUME 9.7 fL (7.4-10.4); MONOCYTES 20.3 % (2-11); PLATELET COUNT 290 10x3/uL (130-400); RBC 3.98 10x6/uL (4.00-5.40); RDW 15.9 % (11.5-14.5); WBC 7.9 10x3/uL (4.8-10.8)
[2016-12-06 06:59] LABS: ALBUMIN 2.3 g/dL (3.4-5.0); ANION GAP 12.8 mmol/L (8-16); BILIRUBIN - TOTAL 0.44 mg/dL (0.2-1.3); CALCIUM 8.3 mg/dL (8.5-10.1); CARBON DIOXIDE 26.4 mmol/L (21.0-32.0); PROTEIN - SERUM 6.3 g/dL (6.4-8.2)
[2016-12-06 07:05] LABS: PHOSPHOROUS 1.9 mg/dL (2.5-4.9); POTASSIUM - SERUM 4.2 mmol/L (3.5-5.1)
--- NOTE | 2016-12-06 08:00 | NUR ---
ASSESSNMENT PER FLOW SHEET.PT WITHOUT DISTRESS.TOLERATING CHEMO.BLOOD RETURN CONFIRMED VIA LEFT PORT.MONITOR
[2016-12-06 08:31] VITALS: BP 120/81
[2016-12-06] MEDS ORDERED: K-DUR20 MEQ PO (12:32)
[2016-12-06 12:54] VITALS: BP 124/82
[2016-12-06 16:25] VITALS: BP 116/64
--- NOTE | 2016-12-06 16:34 | NUR ---
HAS HAD SOME NAUSEA TODAY. TOLERATING CHEMO.BLOOD RETURN CONFIRMED EVERY TWO HOURS.REMAINS WITHOUT DISTRESS.MONITOR
[2016-12-06 20:00] VITALS: BP 116/74
--- NOTE | 2016-12-07 00:50 | NUR ---
ASSESSED AT THE BEGINNING OF THE SHIFT. PT WAS TO FINISH HER CHEMO AND THENBE DISCHARGED. DURING THE NIGHT SHE WAS CHECKED FOR BLOOD RETURN AND IT WAS ALSWAYS GOOD. HER VITAL SIGNS REMAINED GOOD ALSO. THE CHEMO FINISHED UP AND THEN THE PATIENT WANTED TO HAVE SALINE INFUSE FOR A WHILE BEFORE HER PORT WAS DC'D. THIS WAS DONE. SHE HAS TAKEN PAIN MEDS OFTEN SHE COULD HAVE THEM AND HER MOM HAS BEEN ASSISTING HER WITH HER ILEOSTOMY DURING THIS TIME. WHEN ALL FLUIDS AND PAIN MEDS HAD BEEN GIVEN WE FLUSHED THE PORT AND THEN PUT HEPARIN IN BEFORE PULLING THE NEEDLE AND THEN DRESSING THE SITE. SHE WAS THEN TAKEN TO HER MOM'S CAR VOA WHEELCHAIR TO GO HOME. AT 0050 WITH ALL HER DISCHARGE PAPERWORK IN HAND.
--- NOTE | 2016-12-07 18:51 | NUR ---
LATE ENTRY 1230 RECEIVED TC FROM LILIAN AMADOR, NIC SAND TECHNOLOGIST. SHE STATES THE PATIENT WAS DISCHARGED EARLY AM WITH ORDER FOR HOME HEALTH. PROVIDED [facility] AND HOME CONTACT PHONE NUMBER AND PATIENT'S ADDRESS. TC TO [facility] [phone]. SPOKE W/ ANSWERING SERVICE, CORBY. SHE LEFT A MESSAGE FOR DANIEL, THE ON-CALL NURSE, TO [place]. CM RECEIVED CB FROM [facility]. THE PATIENT HAD BEEN DISCHARGED FROM SERVICE. NEW MD ORDER WAS NEEDED. CM FAXED DISCHARGE ORDERS, H/P, CONSULT, DISCHARGE SUMMARY, NEPHROLOGY NOTE AND LABS. CM NOTIFIED NURSING STAFF, THE DR HAD NOT SIGNED D/C ORDERS. D/C SIGNATURE OBTAINED. [facility] FAX NUMBER- [phone] PER DANIEL. DANIEL PLANS TO SEE THE PATIENT ON FRIDAY. SHE WILL CONTACT THE PATIENT.
== END 2016-12-07 00:50 | disposition home health service (06) | DRG 682 ==
LOC: D.ICU 13:28 → D.MS 13:28
PROVIDERS: Internal Medicine Nephrology; ADMIT Internal Medicine Medical Oncology
DX: N17.9 Acute kidney failure, unspecified (principal); K72.00 Acute and subacute hepatic failure without coma; N39.0 Urinary tract infection, site not specified; C78.6 Secondary malignant neoplasm of retroperitoneum and peritoneum; E87.1 Hypo-osmolality and hyponatremia; E87.2 Acidosis; J02.9 Acute pharyngitis, unspecified; G89.4 Chronic pain syndrome; R31.0 Gross hematuria; K72.90 Hepatic failure, unspecified without coma; E87.6 Hypokalemia; E86.0 Dehydration; I95.9 Hypotension, unspecified; R00.0 Tachycardia, unspecified; Z66 Do not resuscitate

== ENCOUNTER → 2017-03-31 08:41 | Outpatient (CLI) | payer MEDICARE ==
[2016-11-28 12:38] VITALS: BMI 23.6
[~2017-03-31 08:41] MED LIST changes: +K-DUR20 MEQ PO
== END | disposition home or self-care (01) ==
LOC: D.CT 03-24 09:00
DX: D50.9 Iron deficiency anemia, unspecified (principal); D64.81 Anemia due to antineoplastic chemotherapy; C17.1 Malignant neoplasm of jejunum; C78.6 Secondary malignant neoplasm of retroperitoneum and peritoneum; C77.4 Secondary and unspecified malignant neoplasm of inguinal and lower limb lymph nodes

== ENCOUNTER 2017-04-18 15:59 | Inpatient (IN) | payer MEDICARE ==
[~2017-04-18] VITALS: Ht 165.1 cm; Wt 59.4 kg
[2017-04-18 16:11] VITALS: BP 121/80; BMI 21.8
[2017-04-18] MEDS ORDERED: MEGACE 20 MG TA20 MG PO (17:16)
[2017-04-18 17:37] LABS: HEMATOCRIT 29.8 % (36.0-48.0); HEMOGLOBIN 10.4 g/dL (12-16); MCH 31.3 pg (26.0-34.0); MCHC 34.9 g/dL (31.0-37.0); MCV 89.8 fL (80.0-100.0); MEAN PLATELET VOLUME 11.2 fL (7.4-10.4); PLATELET COUNT 589 10x3/uL (130-400); RBC 3.32 10x6/uL (4.00-5.40); RDW 18.4 % (11.5-14.5); WBC 57.5 10x3/uL (4.8-10.8)
[2017-04-18 17:44] LABS: ALBUMIN 1.9 g/dL (3.4-5.0); ANION GAP 19.9 mmol/L (8-16); BILIRUBIN - TOTAL 0.99 mg/dL (0.2-1.3); CALCIUM 8.5 mg/dL (8.5-10.1); CARBON DIOXIDE 24.9 mmol/L (21.0-32.0); CREATININE - SERUM 3.3 mg/dL (0.6-1.3); POTASSIUM - SERUM 3.8 mmol/L (3.5-5.1); PROTEIN - SERUM 5.9 g/dL (6.4-8.2)
[2017-04-18 18:03] LABS: MAGNESIUM - SERUM 3.5 mg/dL (1.8-2.4)
[2017-04-18 18:50] LABS: INR 1.99 (0.85-1.17)
[2017-04-18 18:53] LABS: LYMPHOCYTES 6 % (15-50); MONOCYTES 2 % (2-11); NEUTROPHILS 90 % (40-80); PLATELET ESTIMATE INCREASED
[2017-04-18 20:00] VITALS: BP 115/80
[2017-04-19] VITALS: BP 108/72
[2017-04-19 03:30] LABS: APPEARANCE HAZY (CLEAR); COLOR DK YELLOW (YELLOW)
[2017-04-19 03:31] LABS: BACTERIA FEW /hpf (NONE SEEN); BILIRUBIN NEGATIVE (NEGATIVE); EPITHELIAL CELLS NSEEN /hpf (0-5); GLUCOSE NEGATIVE (NEGATIVE); KETONE NEGATIVE (NEGATIVE); NITRITE NEGATIVE (NEGATIVE); PROTEIN 1+ mg/dL (NEGATIVE); RED CELLS - URINE 25-50 /hpf (0-5); SPECIFIC GRAVITY 1.015 (1.005-1.020); UROBILINOGEN NORMAL (NORMAL); WHITE CELLS - URINE >50 /hpf (0-5)
[2017-04-19 04:00] VITALS: BP 115/73
[2017-04-19 06:36] LABS: BASOPHILS 0.1 % (0-2); EOSINOPHILS 0.3 % (0-7); HEMATOCRIT 27.4 % (36.0-48.0); HEMOGLOBIN 9.5 g/dL (12-16); IMMATURE GRANULOCYTES 1.8 % (0-5); LYMPHOCYTES 1.9 % (15-50); MCH 30.7 pg (26.0-34.0); MCHC 34.7 g/dL (31.0-37.0); MCV 88.7 fL (80.0-100.0); MEAN PLATELET VOLUME 10.5 fL (7.4-10.4); MONOCYTES 3.5 % (2-11); NEUTROPHILS 92.4 % (40-80); PLATELET COUNT 511 10x3/uL (130-400); RBC 3.09 10x6/uL (4.00-5.40); RDW 18.1 % (11.5-14.5); WBC 48.8 10x3/uL (4.8-10.8)
[2017-04-19 06:52] LABS: ALBUMIN 1.7 g/dL (3.4-5.0); BILIRUBIN - TOTAL 0.79 mg/dL (0.2-1.3); CALCIUM 8.4 mg/dL (8.5-10.1); CARBON DIOXIDE 25.4 mmol/L (21.0-32.0); CREATININE - SERUM 3.3 mg/dL (0.6-1.3); POTASSIUM - SERUM 3.4 mmol/L (3.5-5.1); PROTEIN - SERUM 6.3 g/dL (6.4-8.2)
[2017-04-19 08:10] VITALS: BP 107/73
[2017-04-19 10:38] VITALS: BMI 21.7
[2017-04-19 11:31] VITALS: BP 112/75
[2017-04-19 14:46] VITALS: Ht 165.1 cm; Wt 59.4 kg
[2017-04-19 15:29] VITALS: BP 107/72
[2017-04-19 20:00] VITALS: BP 112/71
[2017-04-20] VITALS: BP 104/71
[2017-04-20 04:00] VITALS: BP 110/69; BP 150/51
[2017-04-20 08:48] LABS: BASOPHILS 0.4 % (0-2); EOSINOPHILS 0.3 % (0-7); HEMATOCRIT 28.6 % (36.0-48.0); HEMOGLOBIN 9.8 g/dL (12-16); IMMATURE GRANULOCYTES 1.5 % (0-5); LYMPHOCYTES 4.1 % (15-50); MCH 30.2 pg (26.0-34.0); MCHC 34.3 g/dL (31.0-37.0); MEAN PLATELET VOLUME 10.7 fL (7.4-10.4); NEUTROPHILS 87.7 % (40-80); PLATELET COUNT 517 10x3/uL (130-400); RBC 3.25 10x6/uL (4.00-5.40); WBC 36.4 10x3/uL (4.8-10.8)
[2017-04-20 09:03] LABS: ALBUMIN 1.8 g/dL (3.4-5.0); BILIRUBIN - TOTAL 0.87 mg/dL (0.2-1.3); CALCIUM 8.6 mg/dL (8.5-10.1); CARBON DIOXIDE 26.1 mmol/L (21.0-32.0); CREATININE - SERUM 3.2 mg/dL (0.6-1.3); POTASSIUM - SERUM 3.1 mmol/L (3.5-5.1); PROTEIN - SERUM 6.4 g/dL (6.4-8.2)
[2017-04-20 11:34] VITALS: BP 111/77
[2017-04-20 20:00] VITALS: BP 112/73
[2017-04-21] VITALS: BP 111/72
[2017-04-21 04:00] VITALS: BP 110/74
[2017-04-21 04:59] LABS: BASOPHILS 0.5 % (0-2); EOSINOPHILS 0.2 % (0-7); HEMATOCRIT 26.5 % (36.0-48.0); HEMOGLOBIN 9.2 g/dL (12-16); IMMATURE GRANULOCYTES 2.4 % (0-5); LYMPHOCYTES 5.3 % (15-50); MCH 30.3 pg (26.0-34.0); MCHC 34.7 g/dL (31.0-37.0); MCV 87.2 fL (80.0-100.0); MEAN PLATELET VOLUME 10.9 fL (7.4-10.4); MONOCYTES 8.5 % (2-11); NEUTROPHILS 83.1 % (40-80); PLATELET COUNT 519 10x3/uL (130-400); RBC 3.04 10x6/uL (4.00-5.40); RDW 18.2 % (11.5-14.5); WBC 31.7 10x3/uL (4.8-10.8)
[2017-04-21 05:13] LABS: ALBUMIN 1.7 g/dL (3.4-5.0); ANION GAP 15.3 mmol/L (8-16); BILIRUBIN - TOTAL 0.97 mg/dL (0.2-1.3); CALCIUM 8.4 mg/dL (8.5-10.1); CARBON DIOXIDE 24.9 mmol/L (21.0-32.0); CREATININE - SERUM 2.7 mg/dL (0.6-1.3); POTASSIUM - SERUM 3.2 mmol/L (3.5-5.1); PROTEIN - SERUM 6.5 g/dL (6.4-8.2)
[2017-04-21 08:04] VITALS: BP 113/75
[2017-04-21 15:33] VITALS: BP 107/71
[2017-04-21 20:00] VITALS: BP 117/80
[2017-04-22] VITALS: BP 110/70
[2017-04-22 04:00] VITALS: BP 110/74
[2017-04-22 06:17] LABS: HEMATOCRIT 27.4 % (36.0-48.0); HEMOGLOBIN 9.1 g/dL (12-16); MCH 30.8 pg (26.0-34.0); MCHC 33.2 g/dL (31.0-37.0); MCV 92.9 fL (80.0-100.0); MEAN PLATELET VOLUME 12.1 fL (7.4-10.4); PLATELET COUNT 491 10x3/uL (130-400); RBC 2.95 10x6/uL (4.00-5.40); RDW 23.2 % (11.5-14.5); WBC 30.9 10x3/uL (4.8-10.8)
[2017-04-22 06:40] LABS: ANISOCYTOSIS OCC; LYMPHOCYTES 14 % (15-50); MONOCYTES 7 % (2-11); NEUTROPHILS 76 % (40-80); PLATELET ESTIMATE INCREASED; POIKILOCYTOSIS OCC; TARGET CELLS 2+; TEAR DROP CELLS OCC
[2017-04-22 07:17] LABS: ALBUMIN 1.6 g/dL (3.4-5.0); BILIRUBIN - TOTAL 1.2 mg/dL (0.2-1.3); CALCIUM 8.1 mg/dL (8.5-10.1); CARBON DIOXIDE 20.3 mmol/L (21.0-32.0)
[2017-04-22 07:22] LABS: ANION GAP 19.2 mmol/L (8-16); POTASSIUM - SERUM 4.5 mmol/L (3.5-5.1)
[2017-04-22 07:54] VITALS: BP 113/74
[2017-04-22 12:26] VITALS: BP 114/75
[2017-04-22 20:00] VITALS: BP 105/66
[2017-04-23] VITALS: BP 107/66
[2017-04-23 04:00] VITALS: BP 104/70
[2017-04-23 06:16] LABS: BASOPHILS 0.6 % (0-2); EOSINOPHILS 0.2 % (0-7); HEMATOCRIT 26.1 % (36.0-48.0); HEMOGLOBIN 8.9 g/dL (12-16); IMMATURE GRANULOCYTES 6.2 % (0-5); LYMPHOCYTES 6.2 % (15-50); MCH 30.1 pg (26.0-34.0); MCHC 34.1 g/dL (31.0-37.0); MCV 88.2 fL (80.0-100.0); MEAN PLATELET VOLUME 11.1 fL (7.4-10.4); MONOCYTES 14.9 % (2-11); NEUTROPHILS 71.9 % (40-80); PLATELET COUNT 465 10x3/uL (130-400); RBC 2.96 10x6/uL (4.00-5.40); RDW 18.5 % (11.5-14.5); WBC 31.6 10x3/uL (4.8-10.8)
[2017-04-23 07:07] LABS: ALBUMIN 1.6 g/dL (3.4-5.0); BILIRUBIN - TOTAL 1.22 mg/dL (0.2-1.3); CALCIUM 7.9 mg/dL (8.5-10.1); CARBON DIOXIDE 21.6 mmol/L (21.0-32.0); CREATININE - SERUM 2.1 mg/dL (0.6-1.3); PROTEIN - SERUM 5.8 g/dL (6.4-8.2)
[2017-04-23 07:08] LABS: ANION GAP 18.1 mmol/L (8-16); POTASSIUM - SERUM 3.7 mmol/L (3.5-5.1)
[2017-04-23 08:06] VITALS: BP 111/73
[2017-04-23 12:16] VITALS: BP 107/71
[2017-04-23 15:58] VITALS: BP 107/71
[2017-04-23 20:00] VITALS: BP 98/66
[2017-04-24] VITALS: BP 108/70
== END 2017-04-23 22:50 | disposition hospice, inpatient (51) | DRG 394 ==
LOC: D.MS 15:59 → D.SDCHOLD 04-22 12:43 → D.MS 04-22 12:43
PROVIDERS: Internal Medicine Nephrology
DX: K63.2 Fistula of intestine (principal); C18.1 Malignant neoplasm of appendix; C78.7 Secondary malignant neoplasm of liver and intrahepatic bile duct; C78.6 Secondary malignant neoplasm of retroperitoneum and peritoneum; N17.9 Acute kidney failure, unspecified; N13.30 Unspecified hydronephrosis; K56.609 Unspecified intestinal obstruction, unspecified as to partial versus complete obstruction; D62 Acute posthemorrhagic anemia; Z66 Do not resuscitate; Z51.5 Encounter for palliative care; G89.3 Neoplasm related pain (acute) (chronic); E87.6 Hypokalemia; R00.0 Tachycardia, unspecified

== ENCOUNTER 2017-04-23 22:50 | Inpatient (IN) | payer OTHER ==
[~2017-04-23] VITALS: Ht 165.1 cm; Wt 59.5 kg
[~2017-04-23 22:50] MED LIST changes: +MEGACE 20 MG TA20 MG PO
[2017-04-24 06:29] VITALS: Ht 165.1 cm; Wt 59.5 kg
[2017-04-24 07:48] VITALS: BP 118/73
[2017-04-24 20:00] VITALS: BP 119/77
[2017-04-25 08:14] VITALS: BP 117/77
[2017-04-25 20:00] VITALS: BP 119/77
[2017-04-26 09:19] VITALS: BP 112/73
[2017-04-26 12:45] VITALS: BP 110/72
[2017-04-26 14:45] VITALS: BP 110/71
[2017-04-26 21:18] VITALS: BP 108/71
[2017-04-27 08:33] VITALS: BP 112/73
[2017-04-27 12:36] VITALS: BP 111/71
[2017-04-27 17:01] VITALS: BP 107/72
[2017-04-27 21:21] VITALS: BP 102/68
[2017-04-28 08:19] VITALS: BP 107/63; BP 114/48
[2017-04-28 21:14] VITALS: BP 103/71
[2017-04-29 08:13] VITALS: BP 106/68
[2017-04-29 21:30] VITALS: BP 161/80
[2017-04-30 08:00] VITALS: BP 115/68
[2017-04-30 22:53] VITALS: BP 94/62
[2017-05-01 08:08] VITALS: BP 97/62
[2017-05-01 11:43] VITALS: BP 90/55
[2017-05-01 15:41] VITALS: BP 103/63
[2017-05-01 22:13] VITALS: BP 96/62
[2017-05-02 01:16] VITALS: BP 102/62
[2017-05-02 05:14] VITALS: BP 98/69
[2017-05-02 08:12] VITALS: BP 107/63
[2017-05-02 21:07] VITALS: BP 100/61
[2017-05-03 01:58] VITALS: BP 104/62
[2017-05-03 05:24] VITALS: BP 100/61
[2017-05-03 07:06] VITALS: BP 101/63
[2017-05-03 11:04] VITALS: BP 99/64
[2017-05-03 21:12] VITALS: BP 97/59
[2017-05-04 00:59] VITALS: BP 98/58
[2017-05-04 05:05] VITALS: BP 99/61
[2017-05-04 08:24] VITALS: BP 101/59
[2017-05-04 22:35] VITALS: BP 103/59
[2017-05-05 01:02] VITALS: BP 143/56
[2017-05-05 06:09] VITALS: BP 91/55
[2017-05-05 07:28] VITALS: BP 85/55
[2017-05-05 23:40] VITALS: BP 86/59
[2017-05-06 06:13] VITALS: BP 94/58
[2017-05-06 08:51] VITALS: BP 92/60
[2017-05-06 23:07] VITALS: BP 94/67
[2017-05-07 08:45] VITALS: BP 92/61
[2017-05-07 12:45] VITALS: BP 92/59
[2017-05-07 16:43] VITALS: BP 89/55
[2017-05-07 22:09] VITALS: BP 98/62
[2017-05-08 08:45] VITALS: BP 89/62
[2017-05-08 12:08] VITALS: BP 93/63
[2017-05-08 16:17] VITALS: BP 95/56
[2017-05-08 20:00] VITALS: BP 96/59
[2017-05-09 08:43] VITALS: BP 98/63
[2017-05-09 20:00] VITALS: BP 100/58
[2017-05-10 10:51] VITALS: BP 93/59
[2017-05-10 21:57] VITALS: BP 89/55
[2017-05-11 09:00] VITALS: BP 79/49
[2017-05-11 13:13] VITALS: BP 86/51
[2017-05-11 16:58] VITALS: BP 82/47
[2017-05-11 23:18] VITALS: BP 80/48
[2017-05-12 08:18] VITALS: BP 84/48
[2017-05-12 13:20] VITALS: BP 139/54
[2017-05-12 20:00] VITALS: BP 90/56
== END 2017-05-13 08:38 | DRG 951 ==
LOC: D.MS 22:50 → D.SDCHOLD 22:50 → UNDOADMIN 23:19 → D.MS 23:19 → D.SDCHOLD 04-24 04:06 → D.MS 04-24 04:06
DX: Z51.5 Encounter for palliative care (principal)